=== PATIENT | male | born 1940 | race Caucasian/White ===

== ENCOUNTER → 2016-12-03 | Outpatient (CLI) | payer OTHER ==
[~2016-12-03] MED LIST: ASPEC81 PO; CHOL1TAB42 PO; CHOL200010 PO; DICL1GEL12 TOP; DXY100 PO; FLM4 PO; LPR25 PO; LPT40 PO; OXYC5TAB PO; PLV75 PO; PRD/1 PO; PRED-301 PO; VITAMIN D PO
--- NOTE | 2016-12-03 09:26 | DIAGNOSTIC IMAGING REPORT ---
TWO VIEW CHEST CLINICAL HISTORY: Bronchitis. Cough. FINDINGS: PA and lateral chest radiographs are compared to study dated 02/07/2016 and correlated with chest CT dated 02/15/2016. The heart is top normal for projection. There is atherosclerotic calcification of the thoracic aorta. The pulmonary vasculature is noncongested. Chronic interstitial thickening is similar to previous. There is no airspace consolidation or pleural effusion. There is no pneumothorax. The skeletal structures are osteopenic. Degenerative change is seen throughout the thoracic spine. IMPRESSION: No active disease in the chest. Electronically signed by: Rocael Antoine M.D. 12/03/2016 9:24 AM Dictated Date/Time: 12/03/2016 9:23 AM
== END | disposition home or self-care (01) ==
LOC: C.RADBC 09:07
PROVIDERS: ATTEND Internal Medicine Geriatric Medicine
DX: J40 Bronchitis, not specified as acute or chronic (principal)

== ENCOUNTER → 2016-12-03 | Outpatient (CLI) | payer OTHER ==
--- NOTE | 2016-12-03 11:03 | DIAGNOSTIC IMAGING REPORT ---
MRI OF THE LUMBAR SPINE WITHOUT IV CONTRAST CLINICAL HISTORY: Low back pain. Left-sided radiculopathy. COMPARISON STUDY: Radiographs of the lumbar spine dated 05/06/2016. Abdominal CT dated 02/15/2016. TECHNIQUE: MRI of the lumbar spine is performed utilizing various T1 and T2-weighted sequences in the axial and sagittal planes. IV contrast was not administered for this examination. FINDINGS: Lumbar spine: Vertebral body height is maintained at the lumbar spine. There is minimal retrolisthesis at L5-S1. Alignment is otherwise preserved. There is straightening of the lumbar lordosis. Anterior osteophytes are seen throughout. Chronic degenerative endplate change is present at L2-L3, L4-L5, and L5-S1. A hemangioma is noted in the body of T12. There are changes from previous laminectomy at L5. The remaining spinous processes appear intact. The transverse processes are normal as visualized. There are bilateral pars defects at L5. No destructive bony lesion is suspected. Intervertebral discs: There is degenerative disc desiccation loss of height seen throughout the lumbar spine. Loss of height is greatest at L4-L5 and L5-S1. Spinal cord: The imaged spinal cord is normal in morphology and signal intensity. The conus medullaris terminates at the L1-L2 interspace. The nerve roots of the cauda equina are normal in morphology. L1-L2: Unremarkable. L2-L3: There is a small posterior disc bulge. In conjunction with hypertrophy of the ligamentum flavum, this causes minimal acquired compromise of the central canal. The minimum AP diameter measures 9 mm. There is minimal subarticular stenosis. The neural foramina are patent. Facet arthropathy is of no consequence. L3-L4: Mild facet arthropathy is of no consequence. The central canal and neural foramina are patent. L4-L5: Facet arthropathy causes mild left neural foraminal stenosis. In conjunction with lateral osteophyte formation, this may impinge on the exiting left L4 nerve root. There is minimal posterior disc bulge with annular fissure. There is no significant acquired compromise of the central canal. The central canal is slightly narrowed which is likely on a congenital basis. The minimum AP diameter measures up to 11.5 mm. L5-S1: There is no acquired compromise of the central canal at this level. The central canal is slightly narrowed, likely on a congenital basis. The minimum AP canal diameter measures up to 9 mm. Facet arthropathy causes right greater than left neural foraminal stenosis. Soft tissues: There is fatty atrophy of the paraspinous musculature. Postoperative change is seen posteriorly at the L5 level. The partially imaged retroperitoneal structures are grossly unremarkable, but incompletely assessed. Sacrum: There is significant fatty marrow replacement seen in the sacrum. No marrow edema or bony abnormality is identified. IMPRESSION: 1. Multilevel lumbosacral spondylosis as detailed above. There is minimal acquired compromise of the central canal at the L2-L3 level. Mild narrowing of the distal canal is likely on a congenital basis. See discussion for detailed level by level analysis. 2. Facet arthropathy and marginal osteophyte formation may impinge on the exiting left L4 nerve root. 3. Postoperative changes are present at L5. 4. Degenerative disc disease with multilevel degenerative endplate change. No destructive bony process is identified. Dictated: 12/03/2016 10:00 AM Transcribed: 12/03/2016 11:02 AM [email or web address] Electronically signed by: Rocael Antoine M.D. 12/03/2016 11:06 AM Dictated Date/Time: 12/03/2016 10:00 AM
== END | disposition home or self-care (01) ==
LOC: C.MRIBC 09:02
PROVIDERS: ATTEND Orthopaedic Surgery Orthopaedic Surgery of the Spine
DX: M48.06 Spinal stenosis, lumbar region (principal); M47.896 Other spondylosis, lumbar region; M51.36 Other intervertebral disc degeneration, lumbar region; J40 Bronchitis, not specified as acute or chronic

== ENCOUNTER 2016-12-22 07:40 | Observation (INO) | payer OTHER ==
[2016-12-15 10:10] VITALS: BMI 28.0
--- NOTE | 2016-12-15 10:42 | PAT Medication Instructions ---
Service Date Dec 15, 2016. Current Home Medication List Prednisone (Prednisone), 7 MG PO QAM [Vitamin D], 1 TAB PO QAM Medication Instructions For Your Scheduled Surgery Prednisone (Prednisone), 7 MG PO QAM (to be completed prior to surgery) - Hold the following medications the morning of surgery: [Vitamin D], 1 TAB PO QAM If you have any questions please call us at [phone] (Halima Marques PA-C) or [phone] or [phone]
[2016-12-15 11:27] LABS: BASO % 0.2 %; BASO ABS # 0.01 K/uL (0-0.2); COMPLETE YES; EOS % 0.9 %; HEMATOCRIT 47.3 % (42-52); IG% 0.3 %; LYMPH % 14.1 %; LYMPH ABS # 0.82 K/uL (1.2-3.4); MEAN CELL VOLUME 97.3 fL (80-100); MEAN CORPUSCULAR HEMOGLOBIN 32.9 pg (25-34); MEAN CORPUSCULAR HGB CONC 33.8 g/dl (32-36); MEAN PLATELET VOLUME 10.6 fL (7.4-10.4); MONO % 3.8 %; NEUT % 80.7 %; PLATELET COUNT 118 K/uL (130-400); RED BLOOD COUNT 4.86 M/uL (4.7-6.1)
[2016-12-15 11:46] LABS: INR 1.1 (0.9-1.1); PROTHROMBIN TIME (PATIENT) 11.6 SECONDS (9.0-12.0)
[2016-12-15 11:47] LABS: BUN/CREATININE RATIO 20.8 (10-20); CALCIUM 8.4 mg/dl (8.5-10.1); CREATININE 1.4 mg/dl (0.60-1.40); POTASSIUM 4.5 mmol/L (3.5-5.1)
--- NOTE | 2016-12-19 15:39 | HISTORY & PHYSICAL EXAMINATION ---
DATE OF ADMISSION: 12/22/2016 He is being preoped for lumbar surgery, laminectomy L3-L4, L4-L5 lumbar spine. CHIEF COMPLAINT: Back and lower extremity difficulty, claudication, lower extremity difficulty, paresthesias, numbness and tingling. Duration of symptoms close to 1 year, not associated with any red flags, fevers, sweats, chills, bowel and bladder issues. He has had an assortment of conservative measures. PAST MEDICAL HISTORY: Positive rheumatoid arthritis, spine issues. No cardiac disease. No diabetes, blood disorder. No asthma, wheezing. No heart conditions. No strokes. He does have the numbness and tingling. PAST SURGICAL HISTORY: Includes hip replacement, bilateral knee, carpal tunnel, umbilical hernia, rotator cuff repair. MEDICATIONS: Prednisone, vitamin D. ALLERGIES: Unsure. SOCIAL HISTORY: No alcohol or tobacco use. REVIEW OF SYSTEMS: He denies any blurred vision, double vision, tinnitus, vertigo, chest pain, palpitations. All negative. Denies nausea, vomiting or loss of bowel or bladder function. Major complaint is back and lower extremities. OBJECTIVE: GENERAL: He is 5'7, 183 pounds. VITAL SIGNS: Blood pressure 130/80, pulse of 80. HEAD, EYES, EARS, NOSE, AND THROAT: Pupils react to light and accommodation. Ear, nose and throat clear. CARDIAC: Normal S1, S2, no S3. LUNGS: Clear to auscultation. ABDOMEN: Soft, nontender. EXTREMITIES: Intact x4. He has slight weakness, slight loss of sensation. He has no gross reflex changes. He has decreased range of motion, flexion and extension of the spine. Images demonstrate degenerative changes of the spine, stenosis particularly at L3-L4, L4-L5, disc space collapse, no blastic or lytic lesions. IMPRESSION: Stenosis lumbar spine with no instability patterns. DISPOSITION: Includes a laminectomy L3-L4, L4-L5 lumbar spine under general anesthesia [facility] 12/22/2016.
[~2016-12-22] VITALS: Ht 170.2 cm; Wt 81.9 kg
[2016-12-22] VITALS (9 sets, daily range): BP systolic 123–179; BP diastolic 64–99; PULSE 59–87; TEMP 36.4–36.7; O2SAT 92–98; Ht 170.2 cm; Wt 81.9 kg
[~2016-12-22 07:40] MED LIST changes: -ASPEC81 PO; +CEFAZOLIN 2000 MG/60 ML D5W 60 ML IV SCH; -CHOL1TAB42 PO; -CHOL200010 PO; -DICL1GEL12 TOP; -DXY100 PO; +FENTANYL CITRATE INJ 50 MCG/1 ML 2 ML VIAL ONE; -FLM4 PO; +LACTATED RINGER'S 1000ML 1,000 ML IV SCH; -LPR25 PO; -LPT40 PO; +NSS 1000ML IV SCH; -OXYC5TAB PO; -PLV75 PO; -PRED-301 PO
[2016-12-22] MEDS ORDERED: ONDANSETRON INJ 2 MG/ML 2 ML VIAL ONE (08:33)
[2016-12-22] MEDS ORDERED: NEOSTIGMINE METHYLSULFATE 5 MG/5 ML SYR ONE (08:33)
[2016-12-22] MEDS ORDERED: GLYCOPYRROLATE INJ 0.2 MG/ML VIAL ONE ×2 (08:33→11:49)
[2016-12-22] MEDS ORDERED: LIDOCAINE HCL 2% 2 ML VIAL (20MG/ML) ONE (08:33)
[2016-12-22] MEDS ORDERED: DEXAMETHASONE SOD INJ 4 MG/ML VIAL ONE (08:33)
[2016-12-22] MEDS ORDERED: MIDAZOLAM HCL 1 MG/ML 2ML VIAL ONE (08:33)
[2016-12-22] MEDS ORDERED: ROCURONIUM BROMIDE 10 MG/ML 5 ML VIAL ONE ×2 (08:33→10:40)
[2016-12-22] MEDS ORDERED: PROPOFOL IV EMULSION 10 MG/ML 20 ML VIAL IV ONE (08:33)
[2016-12-22] MEDS ORDERED: PHENYLEPHRINE 100MCG/ML 5ML SYR IV PRN (09:15)
[2016-12-22] MEDS ORDERED: MEPERIDINE HCL 25 MG/ML CARP IV PRN (09:15)
[2016-12-22] MEDS ORDERED: ONDANSETRON INJ 2 MG/ML 2 ML VIAL IV PRN ×2 (09:15→12:15)
[2016-12-22] MEDS ORDERED: EpHEDrine SULFATE INJ 50 MG/ML AMP IV PRN (09:15)
[2016-12-22] MEDS ORDERED: LABETALOL HCL IV 5 MG/ML 20ML IV PRN (09:15)
[2016-12-22] MEDS ORDERED: ATROPINE SULFATE 0.1 MG/ML 5ML SYR IV PRN (09:15)
[2016-12-22] MEDS ORDERED: MoRPHine SULFATE 10 MG/ML CARP/VIAL IV PRN (09:15)
[2016-12-22] MEDS ORDERED: FLUMAZENIL 0.1 MG/1 ML 10 ML VIAL IV PRN (09:15)
[2016-12-22] MEDS ORDERED: NALOXONE HCL 0.4 MG/1 ML VIAL/CARP IV PRN (09:15)
[2016-12-22] MEDS ORDERED: HYDROmorphone INJ 1 MG/ML SYR IV PRN ×2 (09:15→12:15)
[2016-12-22] MEDS ORDERED: GELATIN SPONGE SZ 100 ONE (09:25)
[2016-12-22] MEDS ORDERED: VANCOMYCIN HCL 1000MG/20ML VIAL ONE (09:25)
[2016-12-22] MEDS ORDERED: BACITRACIN 50000 UNIT VIAL ONE (09:25)
[2016-12-22] MEDS ORDERED: BUPIVACAINE/EPINEPHRINE 0.5% MPF 1:200,000 30 ML VIAL ONE (09:25)
[2016-12-22] MEDS ORDERED: THROMBIN FOR SOLN 20000 UNIT KIT ONE (09:25)
--- NOTE | 2016-12-22 09:31 | History & Physical Bridge Note ---
H&P Re-Evaluation Bridge Note: I have examined the patient, reviewed the History & Physical and in the interval since the performance of the History & Physical I have noted the following changes of clinical significance: No changes noted
[2016-12-22] MEDS ORDERED: EpHEDrine SULFATE 50MG/5ML SYR ONE (10:12)
[2016-12-22] MEDS ORDERED: EpHEDrine SULFATE INJ 50 MG/ML AMP ONE (10:12)
[2016-12-22] MEDS ORDERED: SODIUM CHLORIDE 0.9% INJ 10 ML VIAL ONE (10:13)
[2016-12-22] MEDS ORDERED: FENTANYL CITRATE INJ 50 MCG/1 ML 2 ML VIAL ONE (11:08)
[2016-12-22] MEDS ORDERED: DURASEAL DURAL SEALANT 5ML TOP ONE (11:57)
--- NOTE | 2016-12-22 12:00 | DIAGNOSTIC IMAGING REPORT ---
INTRAOPERATIVE RADIOGRAPH CLINICAL HISTORY: L3-L5 laminectomy. Fluoroscopy time: 4 seconds. FINDINGS: A single spot fluoroscopic image of the lower lumbar spine is presented. Surgical probes project posteriorly at the levels of L4 and L5. IMPRESSION: Intraoperative image from lumbar spinal surgery as above. See operative report for detailed findings. Electronically signed by: Rocael Antoine M.D. 12/22/2016 11:59 AM Dictated Date/Time: 12/22/2016 11:59 AM
[2016-12-22] MEDS ORDERED: BUPIVACAINE/EPINEPHRINE 0.5% MPF 1:200,000 30 ML VIAL INJ ONE (12:06)
[2016-12-22] MEDS ORDERED: VANCOMYCIN HCL 1000MG/20ML VIAL TOP ONE (12:06)
--- NOTE | 2016-12-22 12:14 | [facility] Post Operative Brief Note ---
Immediate Operative Summary Operative Date Dec 22, 2016. Pre-Operative Diagnosis Lumbar Stenosis, Spondylosis Post-Operative Diagnosis Lumbar Stenosis, Spondylosis Procedure(s) Performed L3-L4, L4-L5 Laminectomy Surgeon Dr. Kim Planning Management It Specialist Surgeon(s) RAMBO Yung Estimated Blood Loss 350 ML Findings severe stenosis Specimens none per surgeon Complication(s) None Disposition Recovery Room / PACU
[2016-12-22] MEDS ORDERED: LORAZEPAM INJ 1 MG in SYRINGE 0 ML IV PRN (12:15)
[2016-12-22] MEDS ORDERED: HYDROmorphone INJ 2 MG/ML SYR/VIAL IV PRN (12:15)
[2016-12-22] MEDS ORDERED: OXYCODONE/ACETAMINOPHEN 5-325 TAB PO PRN ×2 (12:15)
[2016-12-22] MEDS ORDERED: ACETAMINOPHEN 325 MG TAB PO PRN (12:15)
[2016-12-22] MEDS ORDERED: PROMETHAZINE HCL INJ 12.5 MG in SODIUM CHLORIDE 0.9% 50ML 50 ML IV PRN (12:15)
[2016-12-22] MEDS ORDERED: LORAZEPAM 1 MG TAB PO PRN (12:15)
[2016-12-22] MEDS ORDERED: METOCLOPRAMIDE HCL INJ 5 MG/ML 2 ML VIAL IV PRN (12:15)
[2016-12-22] MEDS ORDERED: MAGNESIUM HYDROXIDE SUSP 30 ML UDC PO PRN (12:15)
--- NOTE | 2016-12-22 12:50 | OPERATIVE REPORT ---
DATE OF OPERATION: 12/22/2016 PREOPERATIVE DIAGNOSIS: Stenosis lumbar spine, L3, L4, L5; 3-level stenosis. POSTOPERATIVE DIAGNOSIS: Same. PROCEDURES: Include a laminectomy L3, L4 and L5, foraminotomy, partial facetectomy, decompression of cauda equina. SURGEON: Dr. Kim. CRACKING AND FANNING MACHINE OPERATOR: Tino Osman PA-C. COMPLICATIONS: Zero. BLOOD LOSS: 350. COMORBIDITIES: Include, this was a second time revision surgery. Significant bone graft that was completely encasing the dura from L5 up to L3 and from an old fusion centrally located. DESCRIPTION OF PROCEDURE: The patient was taken to the operating room, a general intubated anesthetic provided to the patient, placed prone, scrubbed, prepped, draped sterile. We made a skin incision, fascial incision. We got right to a large mass of bone. We did dissect out around this. It was difficult. We then were able to get the bone relieved with a alan and Kerrisons and rongeurs and with much effort we got down to the spinal canal. It was a fairly deep wound, fairly deep dura. We stayed out of the dura. We carefully decompressed the nerve roots. We carefully protected all structures. I was very pleased with the freedom of the nerves when we were completed. We then irrigated thoroughly, washed up the wound, cleaned up everything, placed some Gelfoam over the dural structures, DuraSeal over the dural structures, vancomycin, Hemovac drain. Closed fascia to fascia with #1 Vicryl, 2-0 on the subcuticular layer, 3-0 nylon on the skin, sterile dressing applied. The patient returned to PACU stable. No apparent complications. I attest to the content of the Intraoperative Record and any orders documented therein. Any exceptio ns are noted below.
--- NOTE | 2016-12-22 12:53 | Anesthesiology Progress Note ---
Anesthesia Post Op Note Date & Time Dec 22, 2016 at 12:53 Vital Signs Pain Intensity: 2 Vital Signs Past 12 Hours Date Time Temp Pulse Resp B/P Pulse Ox O2 Delivery O2 Flow Rate FiO2 12/22/16 12:45 81 21 162/71 96 Nasal Cannula 4 12/22/16 12:35 85 20 147/66 97 Mask 10 12/22/16 12:25 91 25 183/75 99 Mask 10 12/22/16 12:17 36.6 101 14 158/103 98 Mask 10 12/22/16 08:12 36.7 59 20 164/99 96 Room Air Notes Mental Status: alert / awake / arousable, participated in evaluation Pt Amnestic to Procedure: Yes Nausea / Vomiting: adequately controlled Pain: adequately controlled Airway Patency, RR, SpO2: stable & adequate BP & HR: stable & adequate Hydration State: stable & adequate Anesthetic Complications: no major complications apparent
[2016-12-22] MEDS ORDERED: IV FLUIDS COMPLETED PRN (13:00)
[2016-12-22] MEDS: SODIUM CHLORIDE 0.9% 1000ML 1,000 ML IV SCH (14:01)
[2016-12-22] MEDS: CEFAZOLIN IV 2,000 MG in DEXTROSE 5% 50ML 50 ML IV SCH (18:07)
[2016-12-23] MEDS: SODIUM CHLORIDE 0.9% 1000ML 1,000 ML IV SCH (02:01)
[2016-12-23] MEDS: CEFAZOLIN IV 2,000 MG in DEXTROSE 5% 50ML 50 ML IV SCH ×2 (02:01→09:21)
[2016-12-23 03:17] VITALS: BP 147/63; PULSE 77; TEMP 36.7; O2SAT 93
[2016-12-23] MEDS ORDERED: BISACODYL 10 MG SUPP PR PRN (06:00)
[2016-12-23] MEDS ORDERED: BISACODYL 5 MG TABEC PO PRN (06:00)
--- NOTE | 2016-12-23 07:29 | PROGRESS NOTE ---
DATE: 12/23/2016 Improved stable, minimal complaints of pain. No chest pain, shortness of breath. Vital signs stable. Alert, oriented. Neurologically intact. Slight foot weakness. Status post lumbar spine laminectomy, multiple levels. Disposition includes instructions, precautions, education. Up and ambulatory today. Will discontinue his Trevino catheter. Tentative discharge for tomorrow morning.
[2016-12-23 07:39] VITALS: BP 115/61; PULSE 71; TEMP 36.7; O2SAT 94
[2016-12-23 08:20] LABS: HEMATOCRIT 37.3 % (42-52)
[2016-12-23] MEDS: POLYETHYLENE (MIRALAX) 17 GM PACK PO SCH (08:24)
[2016-12-23] MEDS ORDERED: NON-FORMULARY MEDICATION ([Vitamin D] 1 TAB) PO SCH (09:00)
[2016-12-23 10:25] VITALS: BP 121/71; PULSE 73; O2SAT 93
[2016-12-23 10:46] VITALS: BP 115/63; PULSE 72; TEMP 37; O2SAT 94
[2016-12-23 14:57] VITALS: BP 119/59; PULSE 82; TEMP 36.7; O2SAT 96
[2016-12-23 23:25] VITALS: BP 115/55; PULSE 73; TEMP 37; O2SAT 94
[2016-12-24 07:16] VITALS: BP 132/75; PULSE 67; TEMP 37.2; O2SAT 91
--- NOTE | 2016-12-24 07:25 | Discharge Instructions ---
Discharge Instructions Admission Reason for Admission: Lumbar Spondylosis, Stenosis Discharge Discharge Diagnosis / Problem: stenosis Discharge Goals Goal(s): Improve function Activity Recommendations Activity Limitations: as noted below Lifting Limitations: gradually increase as tolerated, until after follow-up appointment Exercise/Sports Limitations: until after follow-up appointment May Resume Sexual Activity: after follow-up appointment Shower/Bathe: keep incision dry Driving or Machine Use: home, rest, walk, recover . Current Hospital Diet Patient's current hospital diet: Regular Diet Discharge Diet Recommended Diet: Regular Diet Fluid Restriction: None Procedures Procedures Performed: L3-L4, L4-L5 Laminectomy Pending Studies Studies pending at discharge: no Medical Emergencies . Who to Call and When: Medical Emergencies: If at any time you feel your situation is an emergency, please call 911 immediately. . Non-Emergent Contact Non-Emergency issues call your: Surgeon Call Non-Emergent contact if: your pain is concerning you, you have any medication questions . "Provider Documentation" section prepared by Yovany Kim. VTE Core Measure Inpt VTE Proph given/why not?: Treatment not tolerated (may d/c teds)
--- NOTE | 2016-12-24 07:34 | DISCHARGE SUMMARY ---
He is alert, oriented here today. No chest pain, shortness of breath. 37.2, temperature, 132/75 blood pressure. Wound clean, dry. ASSESSMENT: Status post lumbar spine decompression multiple levels for stenosis, doing well in the short run. DISPOSITION: Will get him up and ambulatory today. He is discharged today. He has instructions and precautions here and in the office. He has a prescription on his chart. He has a walker at home. He must be very careful with bending, stooping, lifting.
[2016-12-24] MEDS: POLYETHYLENE (MIRALAX) 17 GM PACK PO SCH (08:42)
[2016-12-24 09:16] VITALS: BP 132/75; PULSE 67; TEMP 37.2; O2SAT 91
[2017-02-24] MEDS ORDERED: PRD/1 PO (11:29)
[2017-02-24] MEDS ORDERED: PRED-301 PO (11:29)
[2017-02-24] MEDS ORDERED: CHOL200010 PO (11:29)
[2017-02-26] MEDS ORDERED: ASPEC81 PO (12:01)
[2017-02-26] MEDS ORDERED: LPR25 PO (12:01)
[2017-02-26] MEDS ORDERED: LPT40 PO (12:01)
[2017-02-26] MEDS ORDERED: PLV75 PO (12:01)
== END 2016-12-24 10:38 | disposition home or self-care (01) ==
LOC: ENRESERVDT → ENRESERVTM → C.ACU 07:40 → C.3E 12:15
PROVIDERS: ADMIT Orthopaedic Surgery Orthopaedic Surgery of the Spine; ATTEND Orthopaedic Surgery Orthopaedic Surgery of the Spine
DX: M48.06 Spinal stenosis, lumbar region (principal); M06.9 Rheumatoid arthritis, unspecified; Z96.649 Presence of unspecified artificial hip joint; Z96.653 Presence of artificial knee joint, bilateral; Z98.890 Other specified postprocedural states

== ENCOUNTER → 2017-02-16 | Outpatient (CLI) | payer OTHER ==
[~2017-02-16] MED LIST changes: +ASPEC81 PO; -CEFAZOLIN 2000 MG/60 ML D5W 60 ML IV SCH; +CHOL1TAB42 PO; +CHOL200010 PO; +DICL1GEL12 TOP; -FENTANYL CITRATE INJ 50 MCG/1 ML 2 ML VIAL ONE; -LACTATED RINGER'S 1000ML 1,000 ML IV SCH; +LPR25 PO; +LPT40 PO; -NSS 1000ML IV SCH; +PLV75 PO; +PRED-301 PO
[2017-02-16 10:46] LABS: BASO % 0.4 %; BASO ABS # 0.02 K/uL (0-0.2); COMPLETE YES; EOS % 1.9 %; HEMATOCRIT 44.2 % (42-52); IG% 0.2 %; LYMPH % 18.8 %; MEAN CELL VOLUME 95.7 fL (80-100); MEAN CORPUSCULAR HEMOGLOBIN 31.8 pg (25-34); MEAN CORPUSCULAR HGB CONC 33.3 g/dl (32-36); MEAN PLATELET VOLUME 10.6 fL (7.4-10.4); NEUT % 72.7 %; PLATELET COUNT 145 K/uL (130-400); RED BLOOD COUNT 4.62 M/uL (4.7-6.1)
[2017-02-16 11:20] LABS: BLOOD UREA NITROGEN 17 mg/dl (7-18); BUN/CREATININE RATIO 13.2 (10-20); CALCIUM 8.6 mg/dl (8.5-10.1); CARBON DIOXIDE 30 mmol/L (21-32); CHLORIDE 108 mmol/L (98-107); GLUCOSE 96 mg/dl (70-99); POTASSIUM 3.9 mmol/L (3.5-5.1); SODIUM 144 mmol/L (136-145)
[2017-02-16 11:23] LABS: CHOLESTEROL 167 mg/dl (0-200); CHOLESTEROL/HDL RATIO 3.5; HDL CHOLESTEROL 48 mg/dl; LDL CHOLESTEROL CALCULATED 98 mg/dl; TRIGLYCERIDES 104 mg/dl (0-150); VERY LOW DENSITY LIPOPROT CALC 21 mg/dl
== END | disposition home or self-care (01) ==
LOC: C.LAB1850 09:53
PROVIDERS: ATTEND Internal Medicine Rheumatology
DX: D69.6 Thrombocytopenia, unspecified (principal); I10 Essential (primary) hypertension; E55.9 Vitamin D deficiency, unspecified; I25.10 Atherosclerotic heart disease of native coronary artery without angina pectoris; I77.6 Arteritis, unspecified; Z79.52 Long term (current) use of systemic steroids; M21.379 Foot drop, unspecified foot

== ENCOUNTER 2017-02-24 11:05 | Inpatient (IN) | payer OTHER ==
[~2017-02-24] VITALS: Ht 167.6 cm; Wt 82.8 kg
[~2017-02-24 11:05] MED LIST changes: -ASPEC81 PO; -CHOL1TAB42 PO; -CHOL200010 PO; -DICL1GEL12 TOP; -LPR25 PO; -LPT40 PO; -PLV75 PO; -PRED-301 PO
[2017-02-24] MEDS ORDERED: ASPIRIN 81 MG CHEW PO STA (11:22)
[2017-02-24] MEDS ORDERED: PANTOprazole SOD 40 MG TAB PO STA (11:22)
[2017-02-24] MEDS ORDERED: ALUMINUM/MAGNESIUM SUSP 30 ML UDC PO STA (11:22)
[2017-02-24] MEDS ORDERED: CHOL200010 PO ×2 (11:29)
[2017-02-24] MEDS ORDERED: PRED-301 PO ×2 (11:29)
[2017-02-24] MEDS ORDERED: PRD/1 PO ×2 (11:29)
[2017-02-24 11:31] LABS: BASO % 0.7 %; BASO ABS # 0.03 K/uL (0-0.2); COMPLETE YES; EOS % 1.8 %; HEMATOCRIT 43.6 % (42-52); IG% 0.2 %; LYMPH % 21.8 %; LYMPH ABS # 0.98 K/uL (1.2-3.4); MEAN CELL VOLUME 93.4 fL (80-100); MEAN CORPUSCULAR HEMOGLOBIN 31.5 pg (25-34); MEAN CORPUSCULAR HGB CONC 33.7 g/dl (32-36); MONO % 6.7 %; NEUT % 68.8 %; PLATELET COUNT 140 K/uL (130-400); RED BLOOD COUNT 4.67 M/uL (4.7-6.1); WHITE BLOOD COUNT 4.49 K/uL (4.8-10.8)
--- NOTE | 2017-02-24 11:31 | EMERGENCY ROOM VISIT NOTE ---
History Report prepared by Char: Amandeep Constantino Under the Supervision of: Dr. Chirag Armenta D.O. First contact with patient: 11:12 Chief Complaint: CARDIAC ASSESSMENT Stated Complaint: NUMBNESS IN RT HAND, JAW PAIN, INDIGESTION Nursing Triage Summary: Triage note: Pt reports for the past two weeks intermittent right neck pain and right hand numbness. pt reports intermittent indigestion. History of Present Illness The patient is a 76 year old male who presents to the Emergency Room with complaints of persistent right hand numbness that started 2 weeks ago. He also notes intermittent right neck and shoulder pain, and the numbness does radiate occasionally up his right arm and into his right shoulder. The patient states that he has intermittent "indigestion" pain in his chest that radiates up into both sides of his jaw. This pain is typically brought on by exertion, and he describes the pain as a "burning". The patient says he has never had anything like this before and he has no history of heart problems. The patient called his primary care doctor's office this morning, and was told to come here. The patient took 3 low-dose baby aspirins around 0900 this morning. He denies any back pain, headaches, shortness of breath, abdominal pain, leg swelling, or leg pain. He has been taking Prednisone everyday ever since he was diagnosed with an infectious disease last January. Source of History: patient, family Onset: 2 weeks ago Position: hand (right) Quality: numbness Timing: other (persistent) Associated Symptoms: + chest pain, + neck pain (right), No SOB, No abdominal pain, No back pain, No headache Note: Associated symptoms: Intermittent jaw pain brought on by exertion. Intermittent right arm and right shoulder numbness. Denies leg swelling or leg pain. Review of Systems See HPI for pertinent positives & negatives. A total of 10 systems reviewed and were otherwise negative. Past Medical & Surgical Medical Problems: (1) Joint pain (2) Lumbar stenosis Surgical Problems: (1) H/O rotator cuff surgery (2) H/O umbilical hernia repair (3) Hip Joint Replacement Status (4) History of back surgery (5) History of carpal tunnel surgery of left wrist (6) History of carpal tunnel surgery of right wrist (7) Knee joint replacement status Family History Diabetes mellitus Heart disease Hypertension Social History Smoking Status: Never Smoker Alcohol Use: occasionally Marital Status: Housing Status: lives with family Occupation Status: retired Current/Historical Medications Scheduled Cholecalciferol (Vitamin D), 2,000 UNIT PO DAILY Prednisone (Prednisone), 3 MG PO DAILY Prednisone (Prednisone), 5 MG PO DAILY Allergies Coded Allergies: Thiopental (Verified Adverse Reaction, Intermediate, YRS AGO- HALLUCINATIONS, 02/24/17) Physical Exam Vital Signs Date Time Temp Pulse Resp B/P Pulse Ox O2 Delivery O2 Flow Rate FiO2 02/24/17 12:55 95 Room Air 02/24/17 12:03 64 18 153/86 96 02/24/17 11:31 67 02/24/17 11:16 97 Room Air 02/24/17 11:07 37.1 66 18 173/95 94 Room Air Physical Exam GENERAL: Patient is awake, alert, and in no acute distress. Patient is resting comfortably and showing no signs of anxiety EYES: The conjunctivae are clear. The pupils are round and reactive. EARS, NOSE, MOUTH AND THROAT: The nose is without any evidence of any deformity. Mucous membranes are moist tongue is midline NECK: The neck is nontender and supple. RESPIRATORY: Normal respiratory effort is noted there is no evidence of wheezing rhonchi or rales CARDIOVASCULAR: Regular rate and rhythm noted there no murmurs rubs or gallops normal S1 normal S2 GASTROINTESTINAL: The abdomen is soft. Bowel sounds are present in all quadrants. Abdomen is nontender BACK: No midline tenderness or or step-off noted range of motion in flexion extension as well as rotation no signs of muscle spasm noted MUSCULOSKELETAL/EXTREMITIES: There is no evidence of gross deformity full range of motion is noted in the hips and shoulders SKIN: There is no obvious evidence of any rash. There are no petechiae, pallor or cyanosis noted. NEUROLOGIC: Patient is awake alert and oriented x3 strength is symmetric patellar reflexes are 2+ bilaterally. Strength symmetric in median, ulnar, and radial nerve distributions. Medical Decision & Procedures ER Provider Diagnostic Interpretation: Radiology results as stated below per my review and radiologist interpretation: HEAD CT NONCONTRAST CT DOSE: 847.48 mGycm HISTORY: Mental status change RUE numbness TECHNIQUE: Multiaxial CT images of the head were performed without the use of intravenous contrast. Comparison: None. Findings: The paranasal sinuses and mastoid air cells are clear. The calvarium and skull base are intact. The ventricles and sulci are within normal limits. There is no mass, hematoma, midline shift, or acute infarct. Impression: No acute intracranial abnormality. Electronically signed by: Bart Rich M.D. 02/24/2017 11:59 AM Dictated Date/Time: 02/24/2017 11:58 AM SINGLE VIEW CHEST CLINICAL HISTORY: Generalized abdominal pain. FINDINGS: An AP, portable, upright chest radiograph is compared to study dated 12/03/2016 and correlated with chest CT dated 02/15/2016. The examination is degraded by portable technique and patient rotation. The heart is enlarged and there is atherosclerotic calcification of the thoracic aorta. There is pulmonary vascular congestion. There is bibasilar atelectasis. No airspace consolidation is seen typical for pneumonia and there is no large pleural effusion. No pneumothorax is seen. The skeletal structures are osteopenic. Degenerative change is noted throughout the thoracic spine. A surgical anchor is present in the left humeral head. IMPRESSION: 1. Cardiomegaly with evidence of mild congestive failure. 2. No airspace consolidation or large pleural effusion is seen. Electronically signed by: Rocael Antoine M.D. 02/24/2017 11:54 AM Dictated Date/Time: 02/24/2017 11:[address] DOSE: 456.46 mGycm HISTORY: Pain. Neuropathy. RUE numbness TECHNIQUE: Multiaxial CT images of the cervical spine were performed and reformatted in the sagittal and coronal plane without the use of contrast. COMPARISON: None. FINDINGS: Diffusion-weighted stature is unremarkable. Degenerative intervertebral this change most prominent from C3 through C5. Moderate reactive sclerosis and osteophytic change. Posterior elements appear to be intact. C1-C2 complex shows moderate degenerative changes of the anterior arch. Considerable osteophytic narrowing right neural foramina C3-C4. Left neural foramina is patent. Mild osteophytic narrowing of the bulk of the neuroforamina bilaterally. No acute abnormality of posterior elements. IMPRESSION: 1. Moderate degenerative change of the entire cervical region. 2. Considerable osteophytic narrowing right neural foramina C3-C4. 3. Minimal/mild osteophytic narrowing of the bulk of the additional neural foramina bilaterally Electronically signed by: Bart Rich M.D. 02/24/2017 12:01 PM Dictated Date/Time: 02/24/2017 11:59 AM Laboratory Results 02/24/17 11:20 Red Blood Count 4.67, Mean Corpuscular Volume 93.4, Mean Corpuscular Hemoglobin 31.5, Mean Corpuscular Hemoglobin Concent 33.7, Mean Platelet Volume 10.0, Neutrophils (%) (Auto) 68.8, Lymphocytes (%) (Auto) 21.8, Monocytes (%) (Auto) 6.7, Eosinophils (%) (Auto) 1.8, Basophils (%) (Auto) 0.7, Neutrophils # (Auto) 3.09, Lymphocytes # (Auto) 0.98, Monocytes # (Auto) 0.30, Eosinophils # (Auto) 0.08, Basophils # (Auto) 0.03 02/24/17 11:20 Test 02/24/17 11:20 White Blood Count 4.49 K/uL (4.8-10.8) Red Blood Count 4.67 M/uL (4.7-6.1) Hemoglobin 14.7 g/dL (14.0-18.0) Hematocrit 43.6 % (42-52) Mean Corpuscular Volume 93.4 fL (80-100) Mean Corpuscular Hemoglobin 31.5 pg (25-34) Mean Corpuscular Hemoglobin Concent 33.7 g/dl (32-36) Platelet Count 140 K/uL (130-400) Mean Platelet Volume 10.0 fL (7.4-10.4) Neutrophils (%) (Auto) 68.8 % Lymphocytes (%) (Auto) 21.8 % Monocytes (%) (Auto) 6.7 % Eosinophils (%) (Auto) 1.8 % Basophils (%) (Auto) 0.7 % Neutrophils # (Auto) 3.09 K/uL (1.4-6.5) Lymphocytes # (Auto) 0.98 K/uL (1.2-3.4) Monocytes # (Auto) 0.30 K/uL (0.11-0.59) Eosinophils # (Auto) 0.08 K/uL (0-0.5) Basophils # (Auto) 0.03 K/uL (0-0.2) RDW Standard Deviation 44.6 fL (36.4-46.3) RDW Coefficient of Variation 13.1 % (11.5-14.5) Immature Granulocyte % (Auto) 0.2 % Immature Granulocyte # (Auto) 0.01 K/uL (0.00-0.02) Prothrombin Time 11.5 SECONDS (9.0-12.0) Prothromb Time International Ratio 1.1 (0.9-1.1) Activated Partial Thromboplast Time 27.7 SECONDS (21.0-31.0) Partial Thromboplastin Ratio 1.1 Anion Gap 6.0 mmol/L (3-11) Est Creatinine Clear Calc Drug Dose 51.1 ml/min Estimated GFR () 62.3 Estimated GFR (Non- 53.8 BUN/Creatinine Ratio 16.0 (10-20) Calcium Level 8.6 mg/dl (8.5-10.1) Total Bilirubin 0.8 mg/dl (0.2-1) Direct Bilirubin 0.2 mg/dl (0-0.2) Aspartate Amino Transf (AST/SGOT) 20 U/L (15-37) Alanine Aminotransferase (ALT/SGPT) 19 U/L (12-78) Alkaline Phosphatase 75 U/L (45-117) Total Creatine Kinase 151 U/L (39-308) Creatine Kinase MB 3.8 ng/ml (0.5-3.6) Creatine Kinase MB Ratio 2.5 (0-3.0) Troponin I 0.344 ng/ml (0-0.045) Total Protein 6.2 gm/dl (6.4-8.2) Albumin 3.4 gm/dl (3.4-5.0) Lipase 131 U/L (73-393) Laboratory results per my review. Medications Administered Medications (Trade) Dose Ordered Sig/[place] Route Start Time Stop Time Status Last Admin Dose Admin Aspirin (Aspirin Chew) 81 mg NOW STAT PO 02/24/17 11:22 02/24/17 11:24 DC 02/24/17 11:35 81 MG Al Hydroxide/Mg Hydroxide (Maalox Susp) 30 ml NOW STAT PO 02/24/17 11:22 02/24/17 11:24 DC 02/24/17 11:36 30 ML Pantoprazole Sodium (Protonix Tab) 40 mg NOW STAT PO 02/24/17 11:22 02/24/17 11:24 DC 02/24/17 11:36 40 MG ECG Indication: chest pain Rate (beats per minute): 59 Rhythm: sinus bradycardia Findings: no ectopy, other (RBBB pattern noted) Comparison ECG Date: RBBB pattern is new compared to Dec 15 2016 ED Course 1113: The patient was evaluated in room A11B. A complete history and physical examination were performed. 1122: Ordered Protonix Tab 40 mg PO, Maalox Susp 30 ml PO, Aspirin Chew 81 mg PO. 1209: Upon reevaluation, the patient is resting comfortably. I discussed results and treatment plan with him. He verbalizes agreement and understanding. The patient will be evaluated for further management and care. 1213: I discussed the patient with Dr. Mahendra hoffman. She will evaluate the patient for further treatment. Medical Decision Triage Nursing notes reviewed. Differential diagnosis: Etiologies such as cardiac ischemia, aortic dissection, pulmonary embolism, pneumonia, pneumothorax, musculoskeletal, infections, pericarditis, myocarditis , esophageal rupture, gastrointestinal, as well as others were entertained. The patient is a 76-year-old male who presented to the emergency department for an evaluation of discomfort in his chest. The patient also describes right upper extremity numbness. I do feel the patient is describing 2 different things. I feel his upper extremity numbness is secondary to cervical radiculopathy. But the discomfort is chest I feel secondary to cardiac ischemia. He has no discomfort at this time was treated with aspirin. His EKG did not show any acute ischemic changes however he did have a new right bundle branch block. This is not specifically consistent with ischemia however his initial troponin was mildly elevated. I discussed the patient's laboratory and radiographic studies with him. Given his findings I also discussed his case with the on-call [facility] hospitalist group. They've agreed to evaluate the patient in the emergency department for further management and disposition. Consults Time Called: 1209 Consulting Physician: Dr. Mahendra hoffman Returned Call: 1213 I discussed the patient with Dr. Mahendra hoffman. She will evaluate the patient for further treatment. Impression Primary Impression: Substernal chest pain Additional Impressions: Elevated troponin Abnormal EKG Cervical radiculopathy Scribe Attestation The scribe's documentation has been prepared under my direction and personally reviewed by me in its entirety. I confirm that the note above accurately reflects all work, treatment, procedures, and medical decision making performed by me. Departure Information Dispostion Being Evaluated By Hospitalist Referrals Beau Moore M.D. (PCP) Patient Instructions My [facility] Problem Qualifiers
[2017-02-24 11:39] LABS: INR 1.1 (0.9-1.1); PARTIAL THROMBOPLASTIN RATIO 1.1; PROTHROMBIN TIME (PATIENT) 11.5 SECONDS (9.0-12.0)
[2017-02-24 11:56] LABS: CALCIUM 8.6 mg/dl (8.5-10.1); CKMB/CK RATIO 2.5 (0-3.0); CREATININE 1.3 mg/dl (0.60-1.40); POTASSIUM 3.9 mmol/L (3.5-5.1)
--- NOTE | 2017-02-24 11:56 | DIAGNOSTIC IMAGING REPORT ---
SINGLE VIEW CHEST CLINICAL HISTORY: Generalized abdominal pain. FINDINGS: An AP, portable, upright chest radiograph is compared to study dated 12/03/2016 and correlated with chest CT dated 02/15/2016. The examination is degraded by portable technique and patient rotation. The heart is enlarged and there is atherosclerotic calcification of the thoracic aorta. There is pulmonary vascular congestion. There is bibasilar atelectasis. No airspace consolidation is seen typical for pneumonia and there is no large pleural effusion. No pneumothorax is seen. The skeletal structures are osteopenic. Degenerative change is noted throughout the thoracic spine. A surgical anchor is present in the left humeral head. IMPRESSION: 1. Cardiomegaly with evidence of mild congestive failure. 2. No airspace consolidation or large pleural effusion is seen. Electronically signed by: Rocael Antoine M.D. 02/24/2017 11:54 AM Dictated Date/Time: 02/24/2017 11:37 AM
--- NOTE | 2017-02-24 12:01 | DIAGNOSTIC IMAGING REPORT ---
HEAD CT NONCONTRAST CT DOSE: 847.48 mGycm HISTORY: Mental status change RUE numbness TECHNIQUE: Multiaxial CT images of the head were performed without the use of intravenous contrast. Comparison: None. Findings: The paranasal sinuses and mastoid air cells are clear. The calvarium and skull base are intact. The ventricles and sulci are within normal limits. There is no mass, hematoma, midline shift, or acute infarct. Impression: No acute intracranial abnormality. Electronically signed by: Bart Rich M.D. 02/24/2017 11:59 AM Dictated Date/Time: 02/24/2017 11:58 AM
--- NOTE | 2017-02-24 12:03 | DIAGNOSTIC IMAGING REPORT ---
CERVICAL SPINE CT CT DOSE: 456.46 mGycm HISTORY: Pain. Neuropathy. RUE numbness TECHNIQUE: Multiaxial CT images of the cervical spine were performed and reformatted in the sagittal and coronal plane without the use of contrast. COMPARISON: None. FINDINGS: Diffusion-weighted stature is unremarkable. Degenerative intervertebral this change most prominent from C3 through C5. Moderate reactive sclerosis and osteophytic change. Posterior elements appear to be intact. C1-C2 complex shows moderate degenerative changes of the anterior arch. Considerable osteophytic narrowing right neural foramina C3-C4. Left neural foramina is patent. Mild osteophytic narrowing of the bulk of the neuroforamina bilaterally. No acute abnormality of posterior elements. IMPRESSION: 1. Moderate degenerative change of the entire cervical region. 2. Considerable osteophytic narrowing right neural foramina C3-C4. 3. Minimal/mild osteophytic narrowing of the bulk of the additional neural foramina bilaterally Electronically signed by: Bart Rich M.D. 02/24/2017 12:01 PM Dictated Date/Time: 02/24/2017 11:59 AM
[2017-02-24 12:55] VITALS: O2SAT 95; Ht 167.6 cm; Wt 82.8 kg
[2017-02-24] MEDS ORDERED: OPTIRAY 320 IV PRN (13:00)
[2017-02-24] MEDS ORDERED: ALUMINUM/MAGNESIUM/SIMETH (MAALOX MAX) 30 ML UDC PO PRN (13:15)
[2017-02-24] MEDS ORDERED: ACETAMINOPHEN 325 MG TAB PO PRN (13:15)
[2017-02-24] MEDS ORDERED: ONDANSETRON INJ 2 MG/ML 2 ML VIAL IV PRN (13:15)
[2017-02-24] MEDS ORDERED: NITROGLYCERIN 0.4 MG SL PER TAB CHARGE SL PRN (13:15)
[2017-02-24] MEDS ORDERED: MAGNESIUM HYDROXIDE SUSP 30 ML UDC PO PRN (13:15)
[2017-02-24] MEDS ORDERED: POLYETHYLENE (MIRALAX) 17 GM PACK PO PRN (13:15)
--- NOTE | 2017-02-24 13:38 | History and Physical ---
History & Physical Date & Time of Service: Feb 24, 2017 at 13:13 Chief Complaint: Numbness In Rt Hand, Jaw Pain, Indigestion Primary Care Physician: Beau Moore M.D. History of Present Illness Source: patient Mr. Mejia is a 76 y/o male with PMHx of Rheumatoid Arthritis and S/P Bilateral Rotator Cuff Repair who presents to the ED complaining of numbness/ tingling of right arm and indigestion 2 weeks. Numbness and tingling of right arm has been constant but waxes and wanes. Intermittently he will experience aching shoulder pain and a pressure sensation in the right neck. He reports the symptoms seem to improve with utilization of the arm but worsens when he is resting. A couple days after the onset of this numbness and tingling he developed epigastric pain that radiates up the chest to his neck that he describes as a burning sensation. This pain is exacerbated by exertion and with bending over. Some mild improvement with rest. The other day he had one short episode of a shocklike sensation in the bilateral jaw. He is on chronic prednisone over the past year for his rheumatoid arthritis which has been slowly weaned to 8 mg daily. He follows with Dr. Huston for rheumatology. Patient took 3 baby aspirin prior to arrival. Patient does not utilize acid reducing medications. He denies chronic issues with acid reflux. In the ED, patient is mildly hypertensive and with adequate oxygenation. Troponin 0.344. EKG showing sinus bradycardia and new right bundle branch block compared to November 2016. CXR with cardiomegaly and mild congestive failure. Cervical spine CT shows moderate degenerative changes with narrowing of the right normal foramina of C3 through C4. Patient will be admitted to telemetry for monitoring and further evaluation and care. Past Medical/Surgical History Medical Problems: (1) Joint pain (2) Lumbar stenosis Surgical Problems: (1) H/O rotator cuff surgery (2) H/O umbilical hernia repair (3) Hip Joint Replacement Status (4) History of back surgery (5) History of carpal tunnel surgery of left wrist (6) History of carpal tunnel surgery of right wrist (7) Knee joint replacement status Family History Diabetes mellitus Heart disease Hypertension Social History Smoking Status: Never Smoker Marital Status: Housing status: lives with family Occupational Status: retired Immunizations History of Tetanus Vaccine?: 2002 History of Pneumococcal: Unknown History of Hepatitis B Vaccine: No Multi-Drug Resistant Organisms History of MDRO: No Allergies Coded Allergies: Thiopental (Verified Adverse Reaction, Intermediate, YRS AGO- HALLUCINATIONS, 02/24/17) Home Medications Scheduled Cholecalciferol (Vitamin D), 2,000 UNIT PO DAILY Prednisone (Prednisone), 3 MG PO DAILY Prednisone (Prednisone), 5 MG PO DAILY Review of Systems REVIEW OF SYSTEMS: General/Constitutional: Denies fever/chills, fatigue, weakness, weight gain/loss ENT: Denies visual changes, nasal drainage, hearing loss, sore throat, trouble swallowing Cardiovascular: +EPIGASTRIC PAIN WITH RADIATION IN CHEST; Denies palpitations, edema Respiratory: Denies cough, sputum, SOB, wheezing, orthopnea GI: + EPIGASTRIC PAIN; Denies nausea, vomiting, constipation, diarrhea, melena/ hematochezia : Denies dysuria, frequency, hematuria Musculoskeletal: +R SHOULDER/NECK PAIN, + R ARM NUMBNESS/TINGLING; Denies weakness or decreased function of R arm, swelling Neurologic: Denies dizziness/lightheadedness Psychiatric: Deferred Endocrine: Deferred Hematologic/Lymphatic: Denies bleeding/clotting abnormalities Skin: Denies rash, itch, new skin changes, easy bruising Allergy/Immunologic: Deferred Physical Exam Vital Signs Date Time Temp Pulse Resp B/P Pulse Ox O2 Delivery O2 Flow Rate FiO2 02/24/17 12:03 64 18 153/86 96 02/24/17 11:31 67 02/24/17 11:16 97 Room Air 02/24/17 11:07 37.1 66 18 173/95 94 Room Air PHYSICAL EXAM:: General Appearance: WDWN in NAD who is A&O x 3 HEENT: Head is normocephalic/atraumatic; EOMI; PERRLA; Hearing grossly intact; Mucous membranes moist; Pharynx negative for exudate/lesions Neck: Supple; Trachea midline; Neg JVD; Neg lymphadenopathy Heart: RRR with no M/G/R Lungs: CTA in all lung schmitz bilaterally; Respirations unlabored; Neg accessory muscle use Abdomen: Soft, non-tender, non-distended; Positive BS x 4 quadrants; Neg organomegaly Extremities: Capillary refill < 2 seconds; Neg cyanosis or edema Neurological: Speech clear; 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, flexion/extension of elbow, and shoulder shrug; strength 3/5 for dorsiflexion of L foot (chronic); Neg focal neurologic deficits Psychiatric: Appropriate mood/affect Skin: Normal Color; Warm/Dry; Neg rashes, ecchymosis, lacerations/ulcerations Diagnostics Laboratory Results Results Past 24 Hours Test 02/24/17 11:20 Range/Units White Blood Count 4.49 4.8-10.8 K/uL Red Blood Count 4.67 4.7-6.1 M/uL Hemoglobin 14.7 14.0-18.0 g/dL Hematocrit 43.6 42-52 % Mean Corpuscular Volume 93.4 80-100 fL Mean Corpuscular Hemoglobin 31.5 25-34 pg Mean Corpuscular Hemoglobin Concent 33.7 32-36 g/dl Platelet Count 140 130-400 K/uL Mean Platelet Volume 10.0 7.4-10.4 fL Neutrophils (%) (Auto) 68.8 % Lymphocytes (%) (Auto) 21.8 % Monocytes (%) (Auto) 6.7 % Eosinophils (%) (Auto) 1.8 % Basophils (%) (Auto) 0.7 % Neutrophils # (Auto) 3.09 1.4-6.5 K/uL Lymphocytes # (Auto) 0.98 1.2-3.4 K/uL Monocytes # (Auto) 0.30 0.11-0.59 K/uL Eosinophils # (Auto) 0.08 0-0.5 K/uL Basophils # (Auto) 0.03 0-0.2 K/uL RDW Standard Deviation 44.6 36.4-46.3 fL RDW Coefficient of Variation 13.1 11.5-14.5 % Immature Granulocyte % (Auto) 0.2 % Immature Granulocyte # (Auto) 0.01 0.00-0.02 K/uL Prothrombin Time 11.5 9.0-12.0 SECONDS Prothromb Time International Ratio 1.1 0.9-1.1 Activated Partial Thromboplast Time 27.7 21.0-31.0 SECONDS Partial Thromboplastin Ratio 1.1 Sodium Level 144 136-145 mmol/L Potassium Level 3.9 3.5-5.1 mmol/L Chloride Level 109 98-107 mmol/L Carbon Dioxide Level 29 21-32 mmol/L Anion Gap 6.0 3-11 mmol/L Blood Urea Nitrogen 21 7-18 mg/dl Creatinine 1.30 0.60-1.40 mg/dl Est Creatinine Clear Calc Drug Dose 51.1 ml/min Estimated GFR () 62.3 Estimated GFR (Non- 53.8 BUN/Creatinine Ratio 16.0 10-20 Random Glucose 102 70-99 mg/dl Calcium Level 8.6 8.5-10.1 mg/dl Total Bilirubin 0.8 0.2-1 mg/dl Direct Bilirubin 0.2 0-0.2 mg/dl Aspartate Amino Transf (AST/SGOT) 20 15-37 U/L Alanine Aminotransferase (ALT/SGPT) 19 12-78 U/L Alkaline Phosphatase 75 45-117 U/L Total Creatine Kinase 151 39-308 U/L Creatine Kinase MB 3.8 0.5-3.6 ng/ml Creatine Kinase MB Ratio 2.5 0-3.0 Troponin I 0.344 0-0.045 ng/ml Total Protein 6.2 6.4-8.2 gm/dl Albumin 3.4 3.4-5.0 gm/dl Lipase 131 73-393 U/L Diagnostic Radiology 1. CERVICAL SPINE CT CT DOSE: 456.46 mGycm HISTORY: Pain. Neuropathy. RUE numbness TECHNIQUE: Multiaxial CT images of the cervical spine were performed and reformatted in the sagittal and coronal plane without the use of contrast. COMPARISON: None. FINDINGS: Diffusion-weighted stature is unremarkable. Degenerative intervertebral this change most prominent from C3 through C5. Moderate reactive sclerosis and osteophytic change. Posterior elements appear to be intact. C1-C2 complex shows moderate degenerative changes of the anterior arch. Considerable osteophytic narrowing right neural foramina C3-C4. Left neural foramina is patent. Mild osteophytic narrowing of the bulk of the neuroforamina bilaterally. No acute abnormality of posterior elements. IMPRESSION: 1. Moderate degenerative change of the entire cervical region. 2. Considerable osteophytic narrowing right neural foramina C3-C4. 3. Minimal/mild osteophytic narrowing of the bulk of the additional neural foramina bilaterally 2. SINGLE VIEW CHEST CLINICAL HISTORY: Generalized abdominal pain. FINDINGS: An AP, portable, upright chest radiograph is compared to study dated 12/03/2016 and correlated with chest CT dated 02/15/2016. The examination is degraded by portable technique and patient rotation. The heart is enlarged and there is atherosclerotic calcification of the thoracic aorta. There is pulmonary vascular congestion. There is bibasilar atelectasis. No airspace consolidation is seen typical for pneumonia and there is no large pleural effusion. No pneumothorax is seen. The skeletal structures are osteopenic. Degenerative change is noted throughout the thoracic spine. A surgical anchor is present in the left humeral head. IMPRESSION: 1. Cardiomegaly with evidence of mild congestive failure. 2. No airspace consolidation or large pleural effusion is seen. EKG Sinus bradycardia Right bundle branch block Abnormal ECG When compared with ECG of 15-DEC-2016 10:52, Right bundle branch block is now Present Impression Assessment and Plan Mr. Mejia is a 76 y/o male with PMHx of Rheumatoid Arthritis and S/P Bilateral Rotator Cuff Repair who presents to the ED complaining of numbness/ tingling of right arm and indigestion 2 weeks. Elevated Troponin: ACS vs PE? - CT R/O PE - given new RBBB, cardiomegaly with mild congestion? R heart strain? - Serial cardiac enzymes - initial troponin 0.344 -- Pending next reading - will initiate anticoagulation - Echocardiogram - ASA 81 mg daily - Start Lisinopril 10 mg daily - be mindful of Cr with contrast given -- BB contraindicated as patient currently bradycardic - Atorvastatin 40 mg daily - may need high dose pending evaluation - Consult cardiology - appreciate recommendations Epigastric Pain: ACS vs Gastritis (Chronic Prednisone) - Protonix 40 mg daily R Arm Radiculopathy 2/2 RA: - Cervical CT - report reviewed - narrowing of right neural foramina at C3 through C4; moderate degenerative changes - Hold prednisone 8 mg daily - at this time - re-evaluate in AM for reinstitution - Would recommend outpatient referral in regards to this - F/U MRI DVT Prophylaxis: Code Status: FULL RESUSCITATION Disposition: From home ATTENDING ATTESTATION I have seen and examined patient and agree with the assessment and plan as stated above by BRAVO Rivas. 76 y/o male with PMHx of Rheumatoid Arthritis who presented to the ED with burning sub sternal chest pain for 2 weeks. Patient also has non associated right arm numbness/tingling which radiates to his nec k. Vitals- reviewed GEN- NAD CVS- RRR RESP- CTA ABD- + BS, NTND EXT- no c/c/e Labs- reviewed 76 y/o male with PMHx of Rheumatoid Arthritis who presented to the ED with burning sub sternal chest pain for 2 weeks found to have an elevated troponin NSTEMI- telemetry, trend troponin and CKMB/start ASA, Lisinopril, atorvastatin 40 mg /check lipid/consult cardiology/check echocardiograph HTN-start lisinopril Rheumatoid Arthritis - continue prednisone Cervical Spine DJD- Tylenol PPx- lovenox Full Code Level of Care Telemetry Resuscitation Status FULL RESUSCITATION VTE Prophylaxis VTE Risk Assessment Done? Y/N: Yes Risk Level: Moderate Given or contraindicated: T.E.D. Stockings, SCD's Social Service Consult None Apply
--- NOTE | 2017-02-24 13:43 | DIAGNOSTIC IMAGING REPORT ---
CT ANGIOGRAPHY OF THE CHEST, PULMONARY EMBOLUS PROTOCOL CLINICAL HISTORY: New right bundle-branch block. Cardiomegaly. Elevated troponin. COMPARISON STUDY: Chest CT February 15, 2016 and chest radiograph February 24, 2017. TECHNIQUE: Following IV administration of 97 mL of Optiray-320, helical axial images of the chest were obtained utilizing the pulmonary embolus protocol. Maximal intensity projections and sagittal and coronal reformats were viewed on an independent 3D workstation. IV contrast was administered without complication. CT DOSE: 404.63 mGy.cm FINDINGS: No pulmonary emboli are identified. There is no evidence of thoracic aortic dissection. The heart is moderately enlarged. There is no pericardial effusion. There is moderate coronary artery calcification. Central airways are patent. There is no consolidation to suggest pneumonia. Groundglass opacities favor atelectasis. There is no pneumothorax or pleural effusion. Bony thorax and upper abdomen are unremarkable. IMPRESSION: 1. No pulmonary emboli identified. 2. No acute intrathoracic findings. 3. Moderate cardiomegaly and moderate coronary artery calcification. Electronically signed by: Garfield Gómez M.D. 02/24/2017 1:40 PM Dictated Date/Time: 02/24/2017 1:34 PM
[2017-02-24] MEDS ORDERED: HydrALAZINE HCL 20 MG/ML VIAL IV. PRN (14:15)
[2017-02-24 15:03] VITALS: BP 189/86; PULSE 56; TEMP 36.6; O2SAT 97
[2017-02-24 16:00] VITALS: O2SAT 97
--- NOTE | 2017-02-24 17:27 | ECHOCARDIOGRAM REPORT ---
*NOTICE TO RECEIVING CONSTITUTION PARTY AGENCY This information is strictly Confidential and protected under [place] law. [place] law prohibits you from making any further disclosure of this information unless further disclosure is expressly permitted by the written consent of the person to whom it pertains or is authorized by law. A general authorization for the release of medical or other information is not sufficient for this purpose. Hospital accepts no responsibility if the information is made available to any other person, INCLUDING THE PATIENT. Interpretation Summary * Name: OH BRYANT Study Date: 02/24/2017 04:16 PM BP: 189/86 mmHg * Patient Location: .2T\S\S233\S\1 HR: 56 * : 1940 (M/d/yyy) Gender: Male Height: 66 in * Age: 76 yrs Ethnicity: CA Weight: 188 lb * Ordering Physician: Laxmi Rivas * Referring Physician: Beau Moore * Performed By: Vanessa Raman RDCS * * Reason For Study: Cardiomegaly, elevated troponin * BSA: 1.9 m2 * -- Conclusions -- * 1. Normal LV size. Mild concentric LVH. * 2. Normal LV systolic function. LVEF 65-70%. No regional wall motion abnormalities. * 3. Normal RV size and function. * 4. Grade I diastolic dysfuntion. * 5. Severely dilated left atrium * 6. Mild aortic valve sclerosis without stenosis. * 7. Normal estimated RA and PA pressures. * 8. Comparerd with prior study on 04/18/2011: No significant changes. Procedure Details * A complete two-dimensional transthoracic echocardiogram was performed (2D, M-mode, Doppler and color flow Doppler). Left Ventricle * The left ventricle is grossly normal size. * There is mild concentric left ventricular hypertrophy. * Ejection Fraction = 65-70%. * No regional wall motion abnormalities noted. Right Ventricle * The right ventricle is grossly normal size. * The right ventricular systolic function is normal as assessed by tricuspid annular plane systolic excursion (TAPSE) (normal >1.5 cm). Atria * The left atrium is severely dilated. * Right atrial size is normal. * No ASD detected; PFO is not assessed. Mitral Valve * Valve chordae thickened * The mitral valve leaflets appear thickened, but open well. * There is no mitral valve stenosis. * Significant mitral regurgitation is absent. Tricuspid Valve * There is trace tricuspid regurgitation. * Right ventricular systolic pressure is normal. Aortic Valve * Aortic valve sclerosis mild, without significant aortic valvular stenosis. * The aortic valve is tricuspid. The leaflet thickness if normal. There is no aortic stenosis, and no significant insufficiency. * There is discrete nodular thickening of the left coronary cusp. * No hemodynamically significant valvular aortic stenosis. * There is no significant aortic regurgitation. Pulmonic Valve * The pulmonary valve is inadequately visualized, but the Doppler data is adequate for interpretation. * Trace pulmonic valvular regurgitation. Great Vessels * The aortic root and proximal ascending aorta are normal sized. * No Doppler or imaging evidence of an aortic coarctation. Pericardium/Pleural * There is no pericardial effusion. Great Vessels * Normal inferior vena cava size and collapsability with sniff indicates a normal right atrial pressure of 3 mmHg * There is no evidence of pulmonary hypertension. The PA systolic pressure is less than 36 mmHg. Left Ventricular Diastolic Function * Grade I diastolic dysfunction, (abnormal relaxation pattern). MMode 2D Measurements and Calculations IVSd 1.1 cm LVIDd 4.4 cm LVIDs 2.7 cm LVPWd 1.4 cm IVS/LVPW 0.81 FS 38.3 % EDV(Teich) 90.0 ml ESV(Teich) 28.1 ml EF(Teich) 68.7 % EDV(cubed) 88.1 ml ESV(cubed) 20.7 ml EF(cubed) 76.5 % LV mass(C)d 211.5 grams LV mass(C)dI 108.6 grams/m\S\2 CO(Teich) 3.3 l/min CI(Teich) 1.7 l/min/m\S\2 SV(Teich) 61.9 ml SI(Teich) 31.8 ml/m\S\2 CO(cubed) 3.6 l/min CI(cubed) 1.8 l/min/m\S\2 SV(cubed) 67.4 ml SI(cubed) 34.6 ml/m\S\2 Ao root diam 3.3 cm Ao root area 8.6 cm\S\2 ACS 1.7 cm LA dimension 3.6 cm asc Aorta Diam 3.5 cm LA/Ao 1.1 LVAd ap4 30.5 cm\S\2 LVLd ap4 8.5 cm EDV(MOD-sp4) 90.1 ml LVAs ap4 14.6 cm\S\2 LVLs ap4 7.0 cm ESV(MOD-sp4) 25.6 ml EF(MOD-sp4) 71.6 % LVAd ap2 27.4 cm\S\2 LVLd ap2 8.1 cm EDV(MOD-sp2) 77.2 ml LVAs ap2 13.3 cm\S\2 LVLs ap2 6.7 cm ESV(MOD-sp2) 23.8 ml EF(MOD-sp2) 69.2 % CO(MOD-sp4) 3.4 l/min CI(MOD-sp4) 1.8 l/min/m\S\2 SV(MOD-sp4) 64.5 ml SI(MOD-sp4) 33.1 ml/m\S\2 CO(MOD-sp2) 2.8 l/min CI(MOD-sp2) 1.5 l/min/m\S\2 SV(MOD-sp2) 53.4 ml SI(MOD-sp2) 27.4 ml/m\S\2 Doppler Measurements and Calculations MV E max nikos 59.7 cm/sec MV A max nikos 91.7 cm/sec MV E/A 0.65 MV dec time 0.32 sec Ao V2 max 127.2 cm/sec Ao max PG 6.5 mmHg Ao max PG (full) 2.7 mmHg LV V1 max PG 3.7 mmHg LV V1 max 96.5 cm/sec PA V2 max 81.7 cm/sec PA max PG 2.7 mmHg PA acc slope 527.4 cm/sec\S\2 PA acc time 0.12 sec PI max nikos 110.3 cm/sec PI max PG 4.9 mmHg PI dec slope 102.8 cm/sec\S\2 PI P1/2t 314.3 msec TR max nikos 251.9 cm/sec PA pr(Accel) 23.5 mmHg
[2017-02-24 18:18] LABS: CKMB/CK RATIO 2.8 (0-3.0)
[2017-02-24 19:19] VITALS: BP 139/81; PULSE 54; TEMP 36.4; O2SAT 94
[2017-02-24] MEDS ORDERED: ENOXAPARIN 1 MG/KG SQ SCH (19:30)
[2017-02-24 20:15] VITALS: O2SAT 94
[2017-02-24 20:54] LABS: URINE APPEARANCE CLEAR (CLEAR); URINE BILIRUBIN NEG (NEG); URINE COLOR YELLOW; URINE NITRITE NEG (NEG); URINE PH 5.5 (4.5-7.5); URINE SPECIFIC GRAVITY > 1.045 (1.000-1.030); UROBILINOGEN NEG (NEG)
[2017-02-24 20:58] LABS: MANUAL MICROSCOPIC REQUIRED? NO; REVIEW REQ? NO
[2017-02-24] MEDS ORDERED: ENOXAPARIN 100 MG/1ML SYR SQ SCH (21:00)
[2017-02-24 23:32] VITALS: BP 133/68; PULSE 59; TEMP 36.6; O2SAT 93
[2017-02-24 23:52] LABS: CKMB/CK RATIO 3.2 (0-3.0)
[2017-02-25] VITALS (14 sets, daily range): BP systolic 128–173; BP diastolic 63–84; PULSE 56–88; TEMP 36.4–36.7; O2SAT 92–97
[2017-02-25 06:13] LABS: HEMATOCRIT 42.7 % (42-52); MEAN CELL VOLUME 93.2 fL (80-100); MEAN CORPUSCULAR HEMOGLOBIN 31.9 pg (25-34); MEAN CORPUSCULAR HGB CONC 34.2 g/dl (32-36); MEAN PLATELET VOLUME 9.9 fL (7.4-10.4); PLATELET COUNT 132 K/uL (130-400); RED BLOOD COUNT 4.58 M/uL (4.7-6.1); WHITE BLOOD COUNT 4.32 K/uL (4.8-10.8)
[2017-02-25 06:30] LABS: CREATININE 1.4 mg/dl (0.60-1.40); MAGNESIUM 2.2 mg/dl (1.8-2.4); POTASSIUM 3.6 mmol/L (3.5-5.1)
[2017-02-25 06:34] LABS: INR 1.1 (0.9-1.1); PARTIAL THROMBOPLASTIN RATIO 1.3; PROTHROMBIN TIME (PATIENT) 11.7 SECONDS (9.0-12.0)
[2017-02-25] MEDS: ATORVASTATIN 40 MG TAB PO SCH (07:54)
[2017-02-25] MEDS: LISINOPRIL 10 MG TAB PO SCH (07:55)
[2017-02-25] MEDS: PANTOprazole SOD 40 MG TAB PO SCH (07:55)
[2017-02-25] MEDS: ASPIRIN 81 MG ECTAB PO SCH (07:55)
[2017-02-25] MEDS ORDERED: ENOXAPARIN 40 MG/0.4 ML SYR SQ SCH (09:00)
[2017-02-25] MEDS ORDERED: HEPARIN 25,000 UNIT/500ML D5W 500 ML IV PRN (09:00)
--- NOTE | 2017-02-25 11:15 | Cardiology Consultation ---
Cardiology Consultation Date of Consultation: Feb 25, 2017. Requesting Physician: Dr. Mccray Reason for Consultation: Elevated troponin Pt evaluation today including: conversation w/ patient, conversation w/ family , physical exam, chart review, lab review, review of studies, review of inpatient medication list History of Present Illness Mr. Mejia is a 76-year-old man with a history of inflammatory arthritis, vasculitis on chronic steroids, hypertension who was admitted in the setting of right arm/neck numbness and pain as well as epigastric/substernal chest discomfort. Was in his usual state of health until approximately 2 weeks ago. Symptoms initially began with right upper extremity numbness and gradually progressed to involve his neck. Epigastric/substernal pain began several days after and he thought it was indigestion. No prior history of indigestion. Symptoms can occur at anytime and not significantly worsened with exertion. Denies any significant associated shortness of breath, palpitations, presyncope. Present to the ED yesterday where was initially hypertensive but hemodynamically stable. Initial EKG showed sinus rhythm with new right bundle branch block but no dynamic ST changes. Initial troponin was positive at 0.3 and has subsequently trended up to 0.5. Since admission patient has been largely chest pain free. Telemetry reviewed and no significant arrhythmias. Patient with no other significant past cardiac history. States he did undergo it is a cardiac catheterization in the 1980s in the setting of atypical chest pain. This was done in [place] and per patient report was completely normal. Past Medical/Surgical History 1. Vasculitis 2. Inflammatory arthritis 3. Spinal stenosis with lumbar radiculopathy 4. Chronic steroid use 5. Osteoarthritis Family History Diabetes mellitus Heart disease Hypertension No history of premature coronary artery disease or sudden cardiac Social History Smoking Status: Never Smoker History of Alcohol Use: Yes ([facility]) Lives with his . 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 Quit smoking cigarettes decades ago. Still uses occasional snuff. Denies any significant alcohol use. Review of Systems Constitutional: No chills, No fever Respiratory: No cough, No shortness of breath Cardiac: + chest pain, No edema, No orthopnea, No palpitations Abdomen: + pain, No nausea, No vomiting Neurologic: No memory loss Heme: No abnormal bleeding/bruising Endo: No fatigue Skin: No rash All Other Systems: Reviewed and Negative Allergies Coded Allergies: Thiopental (Verified Adverse Reaction, Intermediate, YRS AGO- HALLUCINATIONS, 02/24/17) Medications Current Inpatient Medications Medications (Trade) Dose Ordered Sig/Suyapa Route Start Time Stop Time Status Last Admin Dose Admin Ioversol (Optiray 320) 115 ml UD PRN IV 02/24/17 13:00 02/28/17 12:59 Acetaminophen (Tylenol Tab) 650 mg Q4H PRN PO 02/24/17 13:15 03/26/17 13:14 Al Hydrox/Mg Hydrox/Simethicone (Maalox Max Susp) 15 ml Q4H PRN PO 02/24/17 13:15 03/26/17 13:14 Magnesium Hydroxide (Milk Of Magnesia Susp) 30 ml Q12H PRN PO 02/24/17 13:15 03/26/17 13:14 Ondansetron HCl (Zofran Inj) 4 mg Q6H PRN IV 02/24/17 13:15 03/26/17 13:14 Nitroglycerin (Nitrostat Tab) 0.4 mg UD PRN SL 02/24/17 13:15 03/26/17 13:14 Aspirin (Ecotrin Tab) 81 mg QAM PO 02/25/17 09:00 03/27/17 08:59 02/25/17 07:55 81 MG Polyethylene (Miralax Powder Packet) 17 gm DAILY PRN PO 02/24/17 13:15 03/26/17 13:14 Pantoprazole Sodium (Protonix Tab) 40 mg QAM PO 02/25/17 09:00 03/27/17 08:59 02/25/17 07:55 40 MG Atorvastatin Calcium (Lipitor Tab) 40 mg DAILY PO 02/25/17 09:00 03/27/17 08:59 02/25/17 07:54 40 MG Prednisone (PredniSONE TAB) 5 mg DAILY PO 02/25/17 09:00 03/27/17 08:59 02/25/17 07:55 5 MG Prednisone (PredniSONE TAB) 3 mg DAILY PO 02/25/17 09:00 03/27/17 08:59 02/25/17 07:56 3 MG Lisinopril (Zestril Tab) 10 mg QAM PO 02/25/17 09:00 03/27/17 08:59 02/25/17 07:55 10 MG Hydralazine HCl 10 mg 10 mg Q6 PRN IV. 02/24/17 14:15 03/26/17 14:14 Heparin Sodium/ Dextrose (Heparin 25,000 Unit/500ml D5W) 500 ml @ 26 mls/hr [id number] PRN IV 02/25/17 09:00 03/27/17 08:59 Physical Exam Vital Signs Past 12 Hours Date Time Temp Pulse Resp B/P Pulse Ox O2 Delivery O2 Flow Rate FiO2 02/25/17 08:00 97 Room Air 02/25/17 07:38 36.4 61 18 173/84 97 Room Air 02/25/17 04:10 Room Air 02/25/17 03:28 36.5 60 18 146/75 96 Room Air 02/25/17 00:15 Room Air 02/24/17 23:32 36.6 59 17 133/68 93 Room Air ENMT: normal ENT inspection Neck: supple, pertinent finding (No JVD. No bruits) Lungs: Respiratory effort: no dyspnea Auscultation: breath sounds normal, no wheezing, no rales/crackles, no rhonchi Cardiovascular: Heart Auscultation: RRR, no murmurs Peripheral Pulses: Radial Pulse: normal on the left, normal on the right Dorsalis Pedis Pulse: normal on the left, normal on the right Musculoskeletal: normal Extremities: no edema, no ulcers Neurologic: Cranial Nerves: grossly intact Sensation: grossly intact Data Laboratory Results: Last 24 Hours Test 02/24/17 11:20 02/24/17 17:35 02/24/17 20:20 02/24/17 23:20 White Blood Count 4.49 K/uL Red Blood Count 4.67 M/uL Hemoglobin 14.7 g/dL Hematocrit 43.6 % Mean Corpuscular Volume 93.4 fL Mean Corpuscular Hemoglobin 31.5 pg Mean Corpuscular Hemoglobin Concent 33.7 g/dl Platelet Count 140 K/uL Mean Platelet Volume 10.0 fL Neutrophils (%) (Auto) 68.8 % Lymphocytes (%) (Auto) 21.8 % Monocytes (%) (Auto) 6.7 % Eosinophils (%) (Auto) 1.8 % Basophils (%) (Auto) 0.7 % Neutrophils # (Auto) 3.09 K/uL Lymphocytes # (Auto) 0.98 K/uL Monocytes # (Auto) 0.30 K/uL Eosinophils # (Auto) 0.08 K/uL Basophils # (Auto) 0.03 K/uL RDW Standard Deviation 44.6 fL RDW Coefficient of Variation 13.1 % Immature Granulocyte % (Auto) 0.2 % Immature Granulocyte # (Auto) 0.01 K/uL Prothrombin Time 11.5 SECONDS Prothromb Time International Ratio 1.1 Activated Partial Thromboplast Time 27.7 SECONDS Partial Thromboplastin Ratio 1.1 Sodium Level 144 mmol/L Potassium Level 3.9 mmol/L Chloride Level 109 mmol/L Carbon Dioxide Level 29 mmol/L Anion Gap 6.0 mmol/L Blood Urea Nitrogen 21 mg/dl Creatinine 1.30 mg/dl Est Creatinine Clear Calc Drug Dose 51.1 ml/min Estimated GFR () 62.3 Estimated GFR (Non- 53.8 BUN/Creatinine Ratio 16.0 Random Glucose 102 mg/dl Calcium Level 8.6 mg/dl Total Bilirubin 0.8 mg/dl Direct Bilirubin 0.2 mg/dl Aspartate Amino Transf (AST/SGOT) 20 U/L Alanine Aminotransferase (ALT/SGPT) 19 U/L Alkaline Phosphatase 75 U/L Total Creatine Kinase 151 U/L 131 U/L 106 U/L Creatine Kinase MB 3.8 ng/ml 3.7 ng/ml 3.4 ng/ml Creatine Kinase MB Ratio 2.5 2.8 3.2 Troponin I 0.344 ng/ml 0.504 ng/ml 0.537 ng/ml Total Protein 6.2 gm/dl Albumin 3.4 gm/dl Lipase 131 U/L Urine Color YELLOW Urine Appearance CLEAR Urine pH 5.5 Urine Specific [place] > 1.045 Urine Protein NEG Urine Glucose (UA) NEG Urine Ketones NEG Urine Occult Blood NEG Urine Nitrite NEG Urine Bilirubin NEG Urine Urobilinogen NEG Urine Leukocyte Esterase NEG Test 02/25/17 05:50 White Blood Count 4.32 K/uL Red Blood Count 4.58 M/uL Hemoglobin 14.6 g/dL Hematocrit 42.7 % Mean Corpuscular Volume 93.2 fL Mean Corpuscular Hemoglobin 31.9 pg Mean Corpuscular Hemoglobin Concent 34.2 g/dl RDW Standard Deviation 44.8 fL RDW Coefficient of Variation 13.1 % Platelet Count 132 K/uL Mean Platelet Volume 9.9 fL Prothrombin Time 11.7 SECONDS Prothromb Time International Ratio 1.1 Activated Partial Thromboplast Time 33.7 SECONDS Partial Thromboplastin Ratio 1.3 Sodium Level 143 mmol/L Potassium Level 3.6 mmol/L Chloride Level 107 mmol/L Carbon Dioxide Level 28 mmol/L Anion Gap 8.0 mmol/L Blood Urea Nitrogen 21 mg/dl Creatinine 1.40 mg/dl Est Creatinine Clear Calc Drug Dose 46.7 ml/min Estimated GFR () 57.0 Estimated GFR (Non- 49.1 BUN/Creatinine Ratio 15.0 Random Glucose 80 mg/dl Calcium Level 8.2 mg/dl Magnesium Level 2.2 mg/dl Triglycerides Level 128 mg/dl Cholesterol Level 170 mg/dl HDL Cholesterol 43 mg/dl LDL Cholesterol, Calculated 101 mg/dl VLDL Cholesterol, Calculated 26 mg/dl Cholesterol/HDL Ratio 4.0 Imaging: CT neck- moderate degenerative change involving entire cervical region. Consider role narrowing of the right neural foramina and C3-C4 cardiac CTA of chest-no pulmonary emboli. No acute intrathoracic findings. Moderate cardiomegaly, moderate coronary artery calcification. EKG: Sinus rhythm, new right bundle-branch block. Telemetry reviewed: Sinus rhythm, no complex arrhythmias. Echo shows preserved LV function, LVH, no significant valvular pathology. Assessment & Plan 1. Elevated troponin/suspected ACS 2. Hypertension 3. Vasculitis 4. Mild renal insufficiency Patient here with atypical symptoms over the last 2 weeks found to have a mildly elevated troponin and a right bundle-branch block on EKG. At present patient is chest pain free and hemodynamically and electrically stable. Going forward feel the patient requires further risk stratification and in the setting of elevated troponin, risk factors, coronary calcifications on CT scan would plan to proceed directly to cardiac catheterization. Discussed this with the patient and his including risks, benefits, alternatives to procedure and patient would like to proceed. Will plan to do procedure via right radial artery later this afternoon. After contrast load yesterday and with mild renal insufficiency will plan to pre -hydrate with normal saline prior to procedure Otherwise in the interim continue aspirin, statin, last dose of Lovenox was last night and will hold off on initiating heparin at present. Thank you for allowing us to participate in care of this patient. Please contact with any questions.
--- NOTE | 2017-02-25 11:16 | Procedure Note ---
Pre-Mod Sedation Assessment General Date of Moderate Sedation: Feb 25, 2017. Vital Signs: Vital Signs Past 12 Hours Date Time Temp Pulse Resp B/P Pulse Ox O2 Delivery O2 Flow Rate FiO2 02/25/17 11:04 36.6 56 18 135/74 92 Room Air 02/25/17 08:00 97 Room Air 02/25/17 07:38 36.4 61 18 173/84 97 Room Air 02/25/17 04:10 Room Air 02/25/17 03:28 36.5 60 18 146/75 96 Room Air 02/25/17 00:15 Room Air 02/24/17 23:32 36.6 59 17 133/68 93 Room Air Review Cardiovascular: regular rate, rhythm, no edema Abdomen: normal bowel sounds, non tender, soft Lungs: chest non-tender, lungs clear Pre-Sedation Airway Assessment Oral Cavity: Capped Teeth, WNL Able to Visualize Vocal Cords: No Short Thick Neck: No Hx of Sleep Apnea: No Smoking Status: Never Smoker Mallampati Classification: Class III ASA Classification: Class III Procedure Planning Contraindications-for Mod Sed: None Yes Notes The planned sedation has been discussed with the patient and consent obtained. I have identified the patient, determined the appropriateness of sedation and have assessed the patient immediately prior to the procedure. All medicine(s) and interventions are by my order.
[2017-02-25] MEDS ORDERED: HEPARIN SOD (PORCINE) 1000 UNIT/ML 10 ML VIAL ONE ×2 (13:34→15:18)
[2017-02-25] MEDS ORDERED: NiCARDipine HCL INJ 2.5 MG/ML 10 ML AMP ONE (13:34)
[2017-02-25] MEDS ORDERED: MIDAZOLAM HCL 1 MG/ML 2ML VIAL ONE ×5 (13:35→15:18)
[2017-02-25] MEDS ORDERED: FENTANYL CITRATE INJ 50 MCG/1 ML 2 ML VIAL ONE ×5 (13:35→15:18)
[2017-02-25] MEDS ORDERED: NITROGLYCERIN/D5W 100MCG/ML 20ML SYR ONE (13:58)
--- NOTE | 2017-02-25 14:44 | Hospitalist Progress Note ---
Hospitalist Progress Note Date of Service Feb 25, 2017. Subjective Pt evaluation today including: conversation w/ patient Patient denies any chest pain or SOB Constitutional: No fever Eyes: No worsening of vision ENT: No hearing loss Respiratory: No cough Cardiovascular: No chest pain Male : No dysuria Neurologic: No memory loss Psychiatric: No depression symptoms Skin: No new/changing skin lesions, No rash Objective Vital Signs Date Time Temp Pulse Resp B/P Pulse Ox O2 Delivery O2 Flow Rate FiO2 02/25/17 12:00 97 Room Air 02/25/17 11:04 36.6 56 18 135/74 92 Room Air 02/25/17 08:00 97 Room Air 02/25/17 07:38 36.4 61 18 173/84 97 Room Air 02/25/17 04:10 Room Air 02/25/17 03:28 36.5 60 18 146/75 96 Room Air 02/25/17 00:15 Room Air 02/24/17 23:32 36.6 59 17 133/68 93 Room Air 02/24/17 20:15 94 Room Air 02/24/17 19:19 36.4 54 17 139/81 94 Room Air 02/24/17 16:00 97 Room Air 02/24/17 15:03 36.6 56 18 189/86 97 Room Air Physical Exam General Appearance: WD/WN, no apparent distress Eyes: normal inspection ENT: normal ENT inspection Neck: supple Respiratory/Chest: chest non-tender, normal breath sounds Cardiovascular: regular rate, rhythm, no edema Abdomen: normal bowel sounds, non tender, soft Extremities: normal range of motion, non-tender Laboratory Results Last 24 Hours Test 02/24/17 17:35 02/24/17 20:20 02/24/17 23:20 02/25/17 05:50 Total Creatine Kinase 131 U/L 106 U/L Creatine Kinase MB 3.7 ng/ml 3.4 ng/ml Creatine Kinase MB Ratio 2.8 3.2 Troponin I 0.504 ng/ml 0.537 ng/ml Urine Color YELLOW Urine Appearance CLEAR Urine pH 5.5 Urine Specific [place] > 1.045 Urine Protein NEG Urine Glucose (UA) NEG Urine Ketones NEG Urine Occult Blood NEG Urine Nitrite NEG Urine Bilirubin NEG Urine Urobilinogen NEG Urine Leukocyte Esterase NEG White Blood Count 4.32 K/uL Red Blood Count 4.58 M/uL Hemoglobin 14.6 g/dL Hematocrit 42.7 % Mean Corpuscular Volume 93.2 fL Mean Corpuscular Hemoglobin 31.9 pg Mean Corpuscular Hemoglobin Concent 34.2 g/dl RDW Standard Deviation 44.8 fL RDW Coefficient of Variation 13.1 % Platelet Count 132 K/uL Mean Platelet Volume 9.9 fL Prothrombin Time 11.7 SECONDS Prothromb Time International Ratio 1.1 Activated Partial Thromboplast Time 33.7 SECONDS Partial Thromboplastin Ratio 1.3 Sodium Level 143 mmol/L Potassium Level 3.6 mmol/L Chloride Level 107 mmol/L Carbon Dioxide Level 28 mmol/L Anion Gap 8.0 mmol/L Blood Urea Nitrogen 21 mg/dl Creatinine 1.40 mg/dl Est Creatinine Clear Calc Drug Dose 46.7 ml/min Estimated GFR () 57.0 Estimated GFR (Non- 49.1 BUN/Creatinine Ratio 15.0 Random Glucose 80 mg/dl Calcium Level 8.2 mg/dl Magnesium Level 2.2 mg/dl Triglycerides Level 128 mg/dl Cholesterol Level 170 mg/dl HDL Cholesterol 43 mg/dl LDL Cholesterol, Calculated 101 mg/dl VLDL Cholesterol, Calculated 26 mg/dl Cholesterol/HDL Ratio 4.0 Assessment and Plan Mr. Mejia is a 76 y/o male with PMHx of Rheumatoid Arthritis and S/P Bilateral Rotator Cuff Repair who presents to the ED complaining of numbness/ tingling of right arm and indigestion 2 weeks. NSTEMI - appreciate cardiology input - echo cardiograph reviewed - continue ASA, statin and lisinopril - continue heparin drip - hold BB 2/2 to bradycardia - patient to have LHC today by cardiology HTN -continue lisinopril Rheumatoid Arthritis - continue prednisone Cervical Spine DJD - Tylenol PPx- lovenox Full Code
[2017-02-25 15:19] LABS: CALCIUM 8.7 mg/dl (8.5-10.1)
[2017-02-25] MEDS ORDERED: CLOPIDOGREL BISULFATE 300 MG TAB PO ONE (15:45)
--- NOTE | 2017-02-25 16:24 | Procedure Note ---
Post-Mod Sedation Assessment General Date of Moderate Sedation Feb 25, 2017. Vital Signs: Vital Signs Past 12 Hours Date Time Temp Pulse Resp B/P Pulse Ox O2 Delivery O2 Flow Rate FiO2 02/25/17 15:53 36.7 76 18 139/63 95 02/25/17 15:50 60 16 148/89 95 Room Air 02/25/17 15:40 60 16 140/80 95 Room Air 02/25/17 12:00 97 Room Air 02/25/17 11:04 36.6 56 18 135/74 92 Room Air 02/25/17 08:00 97 Room Air 02/25/17 07:38 36.4 61 18 173/84 97 Room Air Review - Discharge Criteria Vital Signs Stable: Yes Alert/Oriented/Conversant: Yes Returned to Baseline Mental St: Yes Nausea Absent/Minimal: Yes Pain/Discomfort/Absent/Minimal: Yes Normal/Baseline Respirations: Yes Active Bleeding?: No Pt Received D/C Instructions: N/A Prescriptions Given: None Specific Proced. D/C Criteria Distal Pulses Present (Cardiac: Yes Groin site assessed-Card Cath: Yes Voided Prior To Discharge: N/A Discharged Patients Adult Escort/Transportation: Yes
[2017-02-25] MEDS ORDERED: SODIUM CHLORIDE 0.9% 1000ML 1,000 ML IV SCH (16:30)
[2017-02-25] MEDS ORDERED: ONDANSETRON INJ 2 MG/ML 2 ML VIAL IV PRN (16:30)
--- NOTE | 2017-02-25 16:57 | Cardiac Catheterization ---
Procedure Note Procedure Date Feb 25, 2017. Pre-Procedure Diagnosis Non STEMI AUC Score 8 Post-Procedure Diagnosis Severe CAD, Successful PCI, Normal Intracardiac Pressures Procedure(s) Performed Coronary Angiography, Left Heart Cath, Drug Eluting Stent, Ultrasound Guided Vascular Access, Radial Artery Angiography Surveillance Camera Technician Dr. Sarkar Insurance Verification Rep(s) Minesh Estimated Blood Loss 30 Medication(s) Clopidogrel, Fentanyl, Heparin, Nicardipine, Nitroglycerin, Versed, Lidocaine 1% Summary of Findings Indication: High-risk NSTEMI Access: Radial artery accessed multiple times but unable to pass wire into more proximal vessel. Right ulnar access obtained via ultrasound guidance. 6Fr sheath Catheters: ZENIA Fraire 1 Findings: LM - Luminal irregularities LAD - Moderate caliber vessel. Mid LAD with 50-60% stenosis prior to take-off of 2nd diagonal. 2nd diagonal small vessel, early bifurcating, with 70-80% ostial stenosis. Circumflex - Non-dominant, luminal irregularities. Very small OM1 diffusely diseased. Moderate caliber OM2 is terminal branch with only luminal irregularities RCA - Dominant, 30-40% proximal, 50-60% early mid stenosis, 40% distal RCA stenosis and 99% stenosis (acute appearing) right at bifurcation of PDA and PAV. Distal PDA with 90% stenosis. LVEDP - 16 -- PCI -- Antithrombotic therapy: Heparin, Clopidogrel Procedure: RCA cannulated with AR1 Guide Computer Repairer 50 wire passed across lesion into distal PDA Distal RCA into PDA lesion predilated with 2.0 compliant balloon BMW wire across lesion into distal PLB 2.0 compliant balloon used to dilate lesion into PAV Dilated lesion stented with 2.25 x 22 Resolute TRA into PDA Stent post-dilated with 2.5 noncompliant balloon IC vasodilators administered for spasm Post stent placement mid RCA lesion appeared more significant and concern for possible proximal dissection. Decision made to stent from proximal RCA in to mid segment. 3.5 x 34 Resolute stent placed across lesions. Stent post-dilated with 4.0 NC balloon. Post procedure AIDA 3 flow, stent well expanded with minimal residual stenosis and no apparent cardiac complications. Arterial Closure: TR Band Summary: 1. Multivessel coronary artery disease - 60% mid RCA stenosis, 99% distal RCA at bifurcation of PDA/PAV (likely culprit lesion) - Intermediate 50-60% mid LAD, 80% ostial small 2nd diagonal. 2. Normal intracardiac filling pressure 3. Successful PCI of proximal to mid RCA (3.5 x 34 Resolute) and distal RCA into PDA (2.25 x 22 Resolute) with 2 total drug-eluting stents. Recommendations: Return to PCU for continued monitoring Loaded with Clopidogrel 600 mg Continue dual-antiplatelet therapy with ASA/Clopidogrel for 1 year Continue CONSUELO, add beta-mi at HR allows High-dose statin Consult cardiac Rehab Further evaluation of intermediate LAD lesion with outpatient stress test. Hemodynamics Rest Ao: 186/84/130 Final Ao: 122/66/90 LV: 177/16 Recommendations PCI without planned CABG Specimens None Radiation Exposure (mGy) 6114 (patient counseled on signs and symptoms of radiation injury) Contrast (mls) 275 Fluids (cc crystalloids) 224 Drains none Anesthesia moderate Procedural Complication(s) None Disposition PCU ACC Data Cardiac Status Clinical evaluation leading to the procedure CAD Presntation: Non STEMI Anginal Classification: CCS IV Heart Failure: No, NYHA Class: CCS I Cardiogenic Shock w/in 24Hrs: No Cardiac Arrest w/in 24Hrs: No Imaging studies past 6 months: Yes Stress studies past 6 months: No Standard Exercise Stress Test: No Stress Echocardiogram: No Stress Testing w/SPECT MPI: No Cardiac CTA: No Coronary Anatomy Dominant: Right Left Main (% Stenosis): Normal LAD (% Stenosis): Mid (60%) D2 (% Stenosis): Ostial (80%) Circumflex (% Stenosis): Normal RCA (% Stenosis): Proximal (40), Mid (50-60), Distal (99) R PDA (% Stenosis): Mid (90) Diagnostic Physician's Name: Delmer Sarkar MD Status: Elective Closure Device Percutaneous Entry Location: Radial Closure Device: Radial Band Recommendations: PCI without planned CABG PCI Indication: PCI for high risk Non-STEMI Lesion Segment Name: Distal RCA Culprit Artery: Yes Stenosis Prior to Rx (%): 99 Chronic Total Occlusion: No IVUS: No FFR: No Pre-Procedure AIDA Flow: 3 Previously Treated Lesion: No Lesion Complexity: High/C Lesion Length (mm): 15 Thrombus Present: No Bifurcation Lesion: Yes Guidewire Across Lesion: Yes Guidewire: Stenosis Post-Procedure (%): 0 Post-Procedure AIDA Flow: 3 Device(s) Deployed: Yes Intraprocedure Events Significant Dissection: No Perforation: No
[2017-02-26] VITALS: BP 145/83; PULSE 64; TEMP 36.6; O2SAT 94
[2017-02-26 04:00] VITALS: BP 138/76; PULSE 66; TEMP 36.7; O2SAT 97
[2017-02-26 05:55] LABS: BASO % 0.4 %; BASO ABS # 0.02 K/uL (0-0.2); COMPLETE YES; HEMATOCRIT 40.1 % (42-52); IG% 0.4 %; LYMPH % 17.3 %; LYMPH ABS # 0.86 K/uL (1.2-3.4); MEAN CELL VOLUME 94.8 fL (80-100); MEAN CORPUSCULAR HEMOGLOBIN 31.4 pg (25-34); MEAN CORPUSCULAR HGB CONC 33.2 g/dl (32-36); MEAN PLATELET VOLUME 10.4 fL (7.4-10.4); MONO % 8.5 %; NEUT % 70.4 %; PLATELET COUNT 118 K/uL (130-400); RED BLOOD COUNT 4.23 M/uL (4.7-6.1); WHITE BLOOD COUNT 4.96 K/uL (4.8-10.8)
[2017-02-26 06:33] LABS: BUN/CREATININE RATIO 13.9 (10-20); CALCIUM 7.9 mg/dl (8.5-10.1); CREATININE 1.3 mg/dl (0.60-1.40); MAGNESIUM 2.2 mg/dl (1.8-2.4); POTASSIUM 3.7 mmol/L (3.5-5.1)
[2017-02-26 08:00] VITALS: BP 124/69; PULSE 70; TEMP 36.9; O2SAT 97
--- NOTE | 2017-02-26 08:55 | Cardiology Follow-Up ---
Subjective Subjective Date of Service: Feb 26, 2017. Pt evaluation today including: conversation w/ patient, conversation w/ family , physical exam, chart review, lab review, review of studies, review of inpatient medication list Additional Details: No chest pain, indigestion overnight. Mild tenderness at right arm access sites. No other new complaints. Tele reviewed -- sinus down to high 50s overnight Problem List Medical Problems: (1) Abnormal EKG Status: Acute (2) Cervical radiculopathy Status: Acute (3) Elevated troponin Status: Acute (4) Fever Status: Acute (5) Joint swelling Status: Acute (6) Pneumonia Status: Acute (7) Substernal chest pain Status: Acute Review of Systems Constitutional: No fever Eyes: No worsening of vision ENT: No hearing loss Respiratory: No cough Cardiac: No chest pain Abdomen: No nausea, No pain, No vomiting Musculoskeletal: + joint pain, + muscle pain Male : No dysuria Neurologic: No memory loss Psychiatric: No depression symptoms Heme: No abnormal bleeding/bruising Endo: No fatigue Skin: No new/changing skin lesions, No rash Objective Vital Signs Last Vital Signs Documentation Date Time Temp Pulse Resp B/P Pulse Ox O2 Delivery O2 Flow Rate FiO2 02/26/17 08:00 97 Room Air 02/26/17 04:00 36.7 66 18 138/76 Physical Exam: General Appearance: no apparent distress ENT: normal ENT inspection Neck: supple Respiratory/Chest: chest non-tender, normal breath sounds Cardiovascular: regular rate, rhythm, no edema, + systolic murmur (2/6 JANINE) Abdomen: normal bowel sounds, non tender, soft Extremities: normal range of motion, non-tender, + pertinent finding ( tenderness, ecchymosis at radial/ulnar access sites. palpable distal radial/ ulnar pulses. intact sensation, cap refill. ) Neurologic/Psychiatric: alert, normal mood/affect, oriented x 3 Skin: normal color, warm/dry, no rash Lymphatic: no adenopathy Assessment and Plan 1. NSTEMI/Distal RCA disease -- post procedure day 1 s/p TRA x2 to RCA; chest pain free, ECG changes resolved this AM 2. Intermediate LAD disease -- further outpatient assessment 3. Hypertension -- reasonably controlled on CONSUELO; add low dose beta-mi 4. Vasculitis -- on chronic steroids 5. Mild renal insufficiency -- stable post IV hydration. Stable post procedure overnight. Some access site bruising but no apparent significant complications. From a cardiac standpoint OK for discharge today. On discharge -- -- Continue DAPT with ASA/Clopidogrel for 1 year -- Continue CONSUELO; started on low dose metoprolol 12.5 BID -- Continue high-dose statin -- F/u with cardiology in 2-3 weeks. Will discuss cardiac rehab and further assessment LAD disease. Medications: Current Inpatient Medications Medications (Trade) Dose Ordered Sig/Suyapa Route Start Time Stop Time Status Last Admin Dose Admin Ioversol (Optiray 320) 115 ml UD PRN IV 02/24/17 13:00 02/28/17 12:59 Acetaminophen (Tylenol Tab) 650 mg Q4H PRN PO 02/24/17 13:15 03/26/17 13:14 Al Hydrox/Mg Hydrox/Simethicone (Maalox Max Susp) 15 ml Q4H PRN PO 02/24/17 13:15 03/26/17 13:14 Magnesium Hydroxide (Milk Of Magnesia Susp) 30 ml Q12H PRN PO 02/24/17 13:15 03/26/17 13:14 Ondansetron HCl (Zofran Inj) 4 mg Q6H PRN IV 02/24/17 13:15 03/26/17 13:14 Nitroglycerin (Nitrostat Tab) 0.4 mg UD PRN SL 02/24/17 13:15 03/26/17 13:14 Aspirin (Ecotrin Tab) 81 mg QAM PO 02/25/17 09:00 03/27/17 08:59 02/25/17 07:55 81 MG Polyethylene (Miralax Powder Packet) 17 gm DAILY PRN PO 02/24/17 13:15 03/26/17 13:14 Pantoprazole Sodium (Protonix Tab) 40 mg QAM PO 02/25/17 09:00 03/27/17 08:59 02/25/17 07:55 40 MG Atorvastatin Calcium (Lipitor Tab) 40 mg DAILY PO 02/25/17 09:00 03/27/17 08:59 02/25/17 07:54 40 MG Prednisone (PredniSONE TAB) 5 mg DAILY PO 02/25/17 09:00 03/27/17 08:59 02/25/17 07:55 5 MG Prednisone (PredniSONE TAB) 3 mg DAILY PO 02/25/17 09:00 03/27/17 08:59 02/25/17 07:56 3 MG Lisinopril (Zestril Tab) 10 mg QAM PO 02/25/17 09:00 03/27/17 08:59 02/25/17 07:55 10 MG Hydralazine HCl 10 mg 10 mg Q6 PRN IV. 02/24/17 14:15 03/26/17 14:14 Heparin Sodium/ Dextrose (Heparin 25,000 Unit/500ml D5W) 500 ml @ 26 mls/hr [id number] PRN IV 02/25/17 09:00 03/27/17 08:59 Clopidogrel Bisulfate (plAVix TAB) 75 mg QAM PO 02/26/17 09:00 03/28/17 08:59 Metoprolol Tartrate (Lopressor Tab) 12.5 mg BID PO 02/26/17 09:00 03/28/17 08:59 Lab Results: 02/26/17 05:30 Red Blood Count 4.23, Mean Corpuscular Volume 94.8, Mean Corpuscular Hemoglobin 31.4, Mean Corpuscular Hemoglobin Concent 33.2, Mean Platelet Volume 10.4, Neutrophils (%) (Auto) 70.4, Lymphocytes (%) (Auto) 17.3, Monocytes (%) (Auto) 8.5, Eosinophils (%) (Auto) 3.0, Basophils (%) (Auto) 0.4, Neutrophils # (Auto) 3.49, Lymphocytes # (Auto) 0.86, Monocytes # (Auto) 0.42, Eosinophils # (Auto) 0.15, Basophils # (Auto) 0.02 02/26/17 05:30 Test 02/25/17 14:31 02/26/17 05:30 Kaolin Activated Coagulation Time 265 SECONDS (94-140) White Blood Count 4.96 K/uL (4.8-10.8) Red Blood Count 4.23 M/uL (4.7-6.1) Hemoglobin 13.3 g/dL (14.0-18.0) Hematocrit 40.1 % (42-52) Mean Corpuscular Volume 94.8 fL (80-100) Mean Corpuscular Hemoglobin 31.4 pg (25-34) Mean Corpuscular Hemoglobin Concent 33.2 g/dl (32-36) Platelet Count 118 K/uL (130-400) Mean Platelet Volume 10.4 fL (7.4-10.4) Neutrophils (%) (Auto) 70.4 % Lymphocytes (%) (Auto) 17.3 % Monocytes (%) (Auto) 8.5 % Eosinophils (%) (Auto) 3.0 % Basophils (%) (Auto) 0.4 % Neutrophils # (Auto) 3.49 K/uL (1.4-6.5) Lymphocytes # (Auto) 0.86 K/uL (1.2-3.4) Monocytes # (Auto) 0.42 K/uL (0.11-0.59) Eosinophils # (Auto) 0.15 K/uL (0-0.5) Basophils # (Auto) 0.02 K/uL (0-0.2) RDW Standard Deviation 45.5 fL (36.4-46.3) RDW Coefficient of Variation 13.1 % (11.5-14.5) Immature Granulocyte % (Auto) 0.4 % Immature Granulocyte # (Auto) 0.02 K/uL (0.00-0.02) Activated Partial Thromboplast Time 27.2 SECONDS (21.0-31.0) Partial Thromboplastin Ratio 1.0 Anion Gap 7.0 mmol/L (3-11) Est Creatinine Clear Calc Drug Dose 50.3 ml/min Estimated GFR () 62.3 Estimated GFR (Non- 53.8 BUN/Creatinine Ratio 13.9 (10-20) Calcium Level 7.9 mg/dl (8.5-10.1) Magnesium Level 2.2 mg/dl (1.8-2.4)
[2017-02-26] MEDS ORDERED: METOPROLOL TARTRATE 25 MG TAB PO SCH (09:00)
[2017-02-26] MEDS ORDERED: CLOPIDOGREL BISULFATE 75 MG TAB PO SCH (09:00)
[2017-02-26] MEDS: ASPIRIN 81 MG ECTAB PO SCH (09:45)
[2017-02-26] MEDS: ATORVASTATIN 40 MG TAB PO SCH (09:45)
[2017-02-26] MEDS: PANTOprazole SOD 40 MG TAB PO SCH (09:48)
[2017-02-26] MEDS: LISINOPRIL 10 MG TAB PO SCH (09:48)
[2017-02-26 11:26] VITALS: BP 162/62; PULSE 58; TEMP 36.5; O2SAT 97
[2017-02-26 12:00] VITALS: O2SAT 97
[2017-02-26] MEDS ORDERED: PLV75 PO ×2 (12:01)
[2017-02-26] MEDS ORDERED: ASPEC81 PO ×2 (12:01)
[2017-02-26] MEDS ORDERED: LPT40 PO ×2 (12:01)
[2017-02-26] MEDS ORDERED: LPR25 PO ×2 (12:01)
--- NOTE | 2017-02-26 12:04 | Discharge Instructions ---
Discharge Instructions Admission Admission Date: Feb 24, 2017 at 13:13 Admission Diagnosis: Elevated Troponin. Discharge Care Plan - Problem: Medical Problems: (1) Abnormal EKG (2) Cervical radiculopathy (3) Elevated troponin (4) Substernal chest pain Care Plan - Goal(s): Decrease discomfort, Improve function Care Plan - Instructions: Activity Recommendations: no limitations Recommended Home Diet: AHA Phase I (2gmNa/LoCho) * Call 911 or immediately go to the Hospital Emergency Department nearest your location if you feel you have an emergent problem. Provider Instructions: Please follow up with the blueprint machine operator in 2-3 weeks. You will be called and notified of the date and time. Please follow up with you PCP in 1 week Inpt [facility] Proph given/why not?: Abbie Chance, SCD's Laboratory Results Test Results: Lipid Panel Test 02/25/17 05:50 Range/Units Triglycerides Level 128 0-150 mg/dl Cholesterol Level 170 0-200 mg/dl HDL Cholesterol 43 mg/dl Cholesterol/HDL Ratio 4.0 LDL Cholesterol, Calculated 101 mg/dl Becky Zamora Recommendations: Call your doctor if: * Temperature above 101 degrees * Pain not relieved by pain medicine ordered * There is increased drainage or redness from any incision * You have any unanswered questions or concerns. Your Doctors Instructions noted above were prepared by provider Laxmi Mccray.
[2017-02-26 12:13] VITALS: BP 162/62; PULSE 58; TEMP 36.5; O2SAT 97
--- NOTE | 2017-02-26 17:09 | Discharge Summary ---
Discharge Summary Date of Service Feb 26, 2017. Discharge Summary Admission Date: Feb 24, 2017 at 13:13 Discharge Date: Feb 26, 2017 Discharge Disposition: Home Principal Diagnosis: NSTEMI/CAD Problems/Secondary Diagnoses: Rheumatoid Arthritis Immunizations: History of Tetanus Vaccine?: 2002 History of Pneumococcal: Unknown History of Hepatitis B Vaccine: No Procedures: 02.26.17 Left Heart Catheterization Consultations: Cardiology Medication Reconciliation New Medications: Aspirin (Aspirin EC Low Dose) 81 Mg Ectab 81 MG PO QAM for 30 Days Atorvastatin (Atorvastatin Calcium) 40 Mg Tab 40 MG PO DAILY for 30 Days, #30 TAB Clopidogrel Bisulfate (Clopidogrel) 75 Mg Tab 75 MG PO QAM for 30 Days, #30 TAB Metoprolol Tartrate (Lopressor) 25 Mg Tab 12.5 MG PO BID for 30 Days, #60 TAB Continued Medications: Cholecalciferol (Vitamin D) 2,000 Unit Cap 2000 UNIT PO DAILY Prednisone (Prednisone) 1 Mg Tab 3 MG PO DAILY, TAB TAKES WITH 5MG TO =8MG Prednisone (Prednisone) 5 Mg Tab 5 MG PO DAILY, TAB TAKES WITH 3 1MG TO =8MG Discharge Exam Review of Systems: Constitutional: No chills Eyes: No worsening of vision ENT: No hearing loss Respiratory: No cough, No dyspnea on exertion, No shortness of breath Cardiovascular: No chest pain Abdomen: No diarrhea, No pain, No vomiting Musculoskeletal: No joint pain Genitourinary - Male: No dysuria, No hematuria Neurologic: No memory loss Endocrine: No fatigue Integumentary: No itch, No rash Physical Exam: General Appearance: WD/WN, no apparent distress Eyes: normal inspection ENT: normal ENT inspection, pharynx normal Neck: supple, no adenopathy Respiratory/Chest: chest non-tender, lungs clear Cardiovascular: regular rate, rhythm, no edema Abdomen / GI: normal bowel sounds, non tender, soft Extremities: normal inspection, no calf tenderness Neurologic/Psychiatric: surfacer operator II-XII nml as tested, no motor/sensory deficits , alert, oriented x 3 Skin: normal color, warm/dry Lymphatic: no adenopathy Hospital Course Mr. Mejia is a 76 y/o male with PMHx of Rheumatoid Arthritis and S/P Bilateral Rotator Cuff Repair who presents to the ED complaining of numbness/ tingling of right arm and indigestion 2 weeks. Patient found to have an elevate troponin and admitted to the hospitalist service for NSTEMI. Cardiology was consulted. Patient was started on an aspirin, atorvastatin and lovenox. On 02.25.17, Patient had left heart catheterization in which he received to TRA to the RCA. Patient was started on plavix. After monitoring post catheterization for 24 hours patient was found to be stable discharge. Patient started on metoprolol although HR was noticed to be 70. It was arranged for patient to have follow up with cariology in 2-3 weeks. Total Time Spent: Greater than 30 minutes This includes examination of the patient, discharge planning, medication reconciliation, and communication with other providers. Discharge Instructions Please refer to the electronic Patient Visit Report (Discharge Instructions) for additional information.
== END 2017-02-26 12:51 | disposition home or self-care (01) | DRG 247 ==
LOC: ENRESERVDT → ENRESERVTM → C.EDB 11:06 → C.2T 13:13
PROVIDERS: ADMIT Internal Medicine; ATTEND Internal Medicine
PROC: B210YZZ Fluoroscopy of Single Coronary Artery using Other Contrast (ICD-10-PCS; principal; 2017-02-25 13:15)
PROC: 4A023N7 Measurement of Cardiac Sampling and Pressure, Left Heart, Percutaneous Approach (ICD-10-PCS; principal; 2017-02-25 13:15)
PROC: B31HZZZ Fluoroscopy of Right Upper Extremity Arteries (ICD-10-PCS; principal; 2017-02-25 13:15)
PROC: 027035Z Dilation of Coronary Artery, One Artery with Two Drug-eluting Intraluminal Devices, Percutaneous Approach (ICD-10-PCS; principal; 2017-02-25 13:15)
DX: I21.4 Non-ST elevation (NSTEMI) myocardial infarction (principal); I25.10 Atherosclerotic heart disease of native coronary artery without angina pectoris; I10 Essential (primary) hypertension; M05.20 Rheumatoid vasculitis with rheumatoid arthritis of unspecified site; N28.9 Disorder of kidney and ureter, unspecified; M50.11 Cervical disc disorder with radiculopathy, high cervical region; I45.10 Unspecified right bundle-branch block; I51.7 Cardiomegaly; Z72.0 Tobacco use; Z98.890 Other specified postprocedural states; Z79.52 Long term (current) use of systemic steroids; Z82.49 Family history of ischemic heart disease and other diseases of the circulatory system; Z83.3 Family history of diabetes mellitus

== ENCOUNTER → 2017-02-27 | Outpatient (CLI) | payer OTHER ==
[~2017-02-27] MED LIST changes: +ASPEC81 PO; +CHOL1TAB42 PO; +CHOL200010 PO; +DICL1GEL12 TOP; +LPR25 PO; +LPT40 PO; +PLV75 PO; +PRED-301 PO
[2017-02-27 13:17] LABS: BLOOD UREA NITROGEN 18 mg/dl (7-18); BUN/CREATININE RATIO 13.1 (10-20); CALCIUM 8.3 mg/dl (8.5-10.1); CARBON DIOXIDE 27 mmol/L (21-32); CHLORIDE 110 mmol/L (98-107); GLUCOSE 107 mg/dl (70-99); POTASSIUM 3.8 mmol/L (3.5-5.1); SODIUM 144 mmol/L (136-145)
== END | disposition home or self-care (01) ==
LOC: C.LABPBG 08:17
PROVIDERS: ATTEND Internal Medicine Interventional Cardiology
DX: N28.9 Disorder of kidney and ureter, unspecified (principal)

== ENCOUNTER → 2017-03-27 | Outpatient (CLI) | payer OTHER ==
[~2017-03-27] MED LIST changes: -LPR25 PO; -PRED-301 PO; -VITAMIN D PO
--- NOTE | 2017-04-02 23:30 | MYOCARDIAL PERFUSION SCAN ---
STUDY TITLE: ONE-DAY NUCLEAR MEDICINE TECHNETIUM-99M CARDIOLITE MYOCARDIAL PERFUSION SCAN PRIMARY CARE PHYSICIAN: Beau Moore MD. REQUESTING PHYSICIAN: Delmer Sarkar MD. INDICATION: Recent PCI, residual coronary artery disease, atypical symptoms. EKG: Resting EKG shows sinus bradycardia with right bundle-branch block. Stress EKG: The patient exercised for 7 minutes and 19 seconds achieving 10.1 METS. Resting heart rate anel from 58 to 126, which was 86% maximum predicted heart rate. Blood pressure anel from 126/78 to 210/80. There were occasional PVCs, no other complex arrhythmias. There were no significant ST changes. Rotating raw images were reviewed in detail. There was mild diaphragmatic attenuation, mild gut uptake near the inferior imaging border of the heart, but no significant extracardiac pathologic uptake. TECHNIQUE: For the stress portion of the study, 33.0 mCi of technetium-99m Cardiolite IV was injected at 11:30 a.m. on 03/27/2017. Fifteen minutes following the injection, imaging of the heart was performed in multiple projections. For the rest portion of the study, 11.0 mCi of technetium-99m Cardiolite was injected IV at 9:20 a.m. One hour following the injection, imaging of the heart was performed in the same projections. FINDINGS: Short axis, horizontal long axis, vertical long axis images were reviewed in detail. There was no visual TID. There were no significant perfusion defects with rest or with stress. LV function was normal with a calculated EF of 57%. There were no significant regional wall motion abnormalities. IMPRESSION: 1. Normal myocardial perfusion scan. No significant evidence of ischemia or prior infarct. 2. Normal left ventricular size and function. EF 57% with no regional wall motion abnormalities. 3. Negative stress EKG for ischemia at 86% maximum predicted heart rate. 4. Excellent exercise capacity. Exercised 7 minutes and 19 seconds achieving 10.1 METS. Borderline hypertensive response to exercise with blood pressure increasing to 210/80. Overall, this represents a low risk myocardial perfusion scan for future adverse cardiac events. MTDD
== END | disposition home or self-care (01) ==
LOC: C.NUCL 09:12
PROVIDERS: ATTEND Internal Medicine Interventional Cardiology
DX: I25.10 Atherosclerotic heart disease of native coronary artery without angina pectoris (principal)

== ENCOUNTER → 2017-07-13 | Outpatient (CLI) | payer OTHER | END | disposition home or self-care (01) | LOC: C.LAB1850 10:08 | PROVIDERS: ATTEND Internal Medicine Rheumatology | DX: Z12.5 Encounter for screening for malignant neoplasm of prostate (principal); N40.1 Benign prostatic hyperplasia with lower urinary tract symptoms; I77.6 Arteritis, unspecified; Z79.52 Long term (current) use of systemic steroids; M54.12 Radiculopathy, cervical region ==

== ENCOUNTER 2017-08-10 13:30 | Emergency (ER) | payer OTHER ==
[~2017-08-10] VITALS: Ht 167.6 cm; Wt 78.2 kg
[2017-08-10 13:30] VITALS: TEMP 36.6; O2SAT 98; Ht 167.6 cm; Wt 78.2 kg
[~2017-08-10 13:30] MED LIST changes: -CHOL1TAB42 PO; -DICL1GEL12 TOP
--- NOTE | 2017-08-10 14:16 | EMERGENCY ROOM VISIT NOTE ---
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 Family reports patient was unresponsive for about 30 seconds with emesis x1 when he woke Patient has a history of CO in 02/2017 with cardiac stents x2 History of Present Illness The patient is a 76 year old male with a past medical history of CO with 2 stents placed in 01/2017 who presents to the Emergency Room with complaints of a syncopal episode. The patient was in the [place] with his son in law and suddenly had double vision, vomited, and passed out for 30 seconds. The patient states that he was very warm and was dressed in hiking boots and long pants. During the event he denies any chest pain, palpitations, headache, slurred speech, dizziness, or changes in vision. He states that he ate a bagel for breakfast but did not have much to drink today. After passing out he immediately became alert and denies any confusion or neurological deficit. His blood pressure on arrival of EMT was 90 systolic so they decided to transport him to the hospital. At this time he denies any dizziness, changes in vision, chest pain, abdominal pain, diarrhea, vomiting, nausea, or any other acute complaints. Review of Systems See HPI for pertinent positives and negatives. A total of ten systems were reviewed and were otherwise negative. Constitutional: No fever, No chills, No fatigue Eyes: No worsening of vision, No diplopia, No problem reported Respiratory: No cough, No sputum, No shortness of breath Cardiovascular: No chest pain, No edema, No palpitations Abdomen: No pain, No nausea, No vomiting, No diarrhea, No constipation Neurologic: No paralysis, No weakness, No numbness/tingling, No vertigo Endocrine: No fatigue Past Medical/Surgical History Medical Problems: (1) Joint pain (2) Lumbar stenosis Surgical Problems: (1) H/O rotator cuff surgery (2) H/O umbilical hernia repair (3) Hip Joint Replacement Status (4) History of back surgery (5) History of carpal tunnel surgery of left wrist (6) History of carpal tunnel surgery of right wrist (7) Knee joint replacement status Family History Diabetes mellitus Heart disease Hypertension Social History Smoking Status: Never Smoker Alcohol Use: occasionally Marital Status: Housing Status: lives with family Occupation Status: retired Current/Historical Medications Scheduled Aspirin (Aspirin EC Low Dose), 81 MG PO QAM Cholecalciferol (Vitamin D), 5,000 UNITS PO DAILY Clopidogrel Bisulfate (Clopidogrel), 75 MG PO QAM Prednisone (Prednisone), 1 MG PO DAILY Physical Exam Vital Signs Date Time Temp Pulse Resp B/P (MAP) Pulse Ox O2 Delivery O2 Flow Rate FiO2 08/10/17 15:45 65 16 138/87 96 Room Air 08/10/17 14:37 65 16 132/77 94 Room Air 08/10/17 13:43 67 08/10/17 13:30 98 Room Air 08/10/17 13:30 36.6 67 16 130/65 98 Room Air 08/10/17 13:30 67 130/65 70 113/68 74 112/57 Physical Exam GENERAL: Awake, alert, well-appearing, in no distress HENT: Normocephalic, atraumatic. Oropharynx unremarkable. EYES: Normal conjunctiva. Sclera non-icteric. NECK: Supple. No nuchal rigidity. RESPIRATORY: Clear to auscultation. CARDIAC: Regular rate, normal rhythm. Extremities warm and well perfused. Pulses equal. ABDOMEN: Soft, non-distended. No tenderness to palpation. No rebound or guarding. No masses. RECTAL: Deferred. MUSCULOSKELETAL: Chest examination reveals no tenderness. The back is symmetrical on inspection without obvious abnormality. There is no CVA tenderness to palpation. No joint edema. LOWER EXTREMITIES: Calves are equal size bilaterally and non-tender. No edema. No discoloration. NEURO: Normal sensorium. No sensory or motor deficits noted. SKIN: No rash or jaundice noted. Medical Decision & Procedures Laboratory Results 08/10/17 13:40 Red Blood Count 4.45, Mean Corpuscular Volume 94.6, Mean Corpuscular Hemoglobin 32.1, Mean Corpuscular Hemoglobin Concent 34.0, Mean Platelet Volume 10.6, Neutrophils (%) (Auto) 74.2, Lymphocytes (%) (Auto) 14.9, Monocytes (%) (Auto) 6.5, Eosinophils (%) (Auto) 3.8, Basophils (%) (Auto) 0.4, Neutrophils # (Auto) 3.75, Lymphocytes # (Auto) 0.75, Monocytes # (Auto) 0.33, Eosinophils # (Auto) 0.19, Basophils # (Auto) 0.02 08/10/17 13:40 Test 08/10/17 13:40 08/10/17 15:55 08/10/17 16:21 White Blood Count 5.05 K/uL (4.8-10.8) Red Blood Count 4.45 M/uL (4.7-6.1) Hemoglobin 14.3 g/dL (14.0-18.0) Hematocrit 42.1 % (42-52) Mean Corpuscular Volume 94.6 fL (80-100) Mean Corpuscular Hemoglobin 32.1 pg (25-34) Mean Corpuscular Hemoglobin Concent 34.0 g/dl (32-36) Platelet Count 122 K/uL (130-400) Mean Platelet Volume 10.6 fL (7.4-10.4) Neutrophils (%) (Auto) 74.2 % Lymphocytes (%) (Auto) 14.9 % Monocytes (%) (Auto) 6.5 % Eosinophils (%) (Auto) 3.8 % Basophils (%) (Auto) 0.4 % Neutrophils # (Auto) 3.75 K/uL (1.4-6.5) Lymphocytes # (Auto) 0.75 K/uL (1.2-3.4) Monocytes # (Auto) 0.33 K/uL (0.11-0.59) Eosinophils # (Auto) 0.19 K/uL (0-0.5) Basophils # (Auto) 0.02 K/uL (0-0.2) RDW Standard Deviation 46.1 fL (36.4-46.3) RDW Coefficient of Variation 13.3 % (11.5-14.5) Immature Granulocyte % (Auto) 0.2 % Immature Granulocyte # (Auto) 0.01 K/uL (0.00-0.02) Anion Gap 13.0 mmol/L (3-11) Est Creatinine Clear Calc Drug Dose 45.5 ml/min Estimated GFR () 57.0 Estimated GFR (Non- 49.1 BUN/Creatinine Ratio 16.5 (10-20) Calcium Level 9.1 mg/dl (8.5-10.1) Urine Color DK YELLOW Urine Appearance CLEAR (CLEAR) Urine pH 6.5 (4.5-7.5) Urine Specific [place] 1.023 (1.000-1.030) Urine Protein TRACE (NEG) Urine Glucose (UA) NEG (NEG) Urine Ketones 1+ (NEG) Urine Occult Blood NEG (NEG) Urine Nitrite NEG (NEG) Urine Bilirubin NEG (NEG) Urine Urobilinogen NEG (NEG) Urine Leukocyte Esterase NEG (NEG) Urine WBC (Auto) 1-5 /hpf (0-5) Urine RBC (Auto) 0-4 /hpf (0-4) Urine Hyaline Casts (Auto) 5-10 /lpf (0-5) Urine Epithelial Cells (Auto) >30 /lpf (0-5) Urine Bacteria (Auto) NEG (NEG) Urine Renal Epithelial Cells /lpf (0-5) Bedside Troponin I < 0.030 ng/ml (0-0.045) Medications Administered Medications (Trade) Dose Ordered Sig/Suyapa Route Start Time Stop Time Status Last Admin Dose Admin Sodium Chloride 500 ml @ 1,000 mls/hr Q30M ONCE IV 08/10/17 14:30 08/10/17 14:59 DC 08/10/17 14:42 1,000 MLS/HR ECG Indication: syncope Rate (beats per minute): 67 Rhythm: normal sinus Findings: RBBB, T-wave inversion (lead 3) Change: no significant change (Compared to February 24 2017) ED Course Patient initially examined and no evident neurological or cardiac findings on physical exam Labs/ Imaging Ordered: - CBC - BMP - POC Troponin - CXR - UA - 500ml NS Bolus - CXR: No acute abnormalities - BMP showed elevated BUN, signifying probably dehydration - UA negative - POC Troponin <0.030 - After bolus of fluid patient has no acute complaints at this time Medical Decision Patient is a 76 year old male that presented to the ED with syncope Etiologies such as dehydration, vasovagal event, infection, hypoglycemia, electrolyte abnormalities, cardiac sources, intracerebral event, toxicologic, neurologic, as well as others were entertained. Patient most likely presented with syncope 2/2 to dehydration. BMP showed elevated BUN signifying dehydration. Cranial Nerve exam showed no acute abnormalities and patient did not have any head trauma during fall or history concerning for CVA. EKG appeared unchanged from February, and troponins were negative ruling out a cardiogenic source to the syncope. Patient to be discharged home with instruction to maintain adequate hydration and follow up with his PCP Impression Primary Impression: Syncope Additional Impression: Dehydration Departure Information Dispostion Home / Self-Care Condition GOOD Referrals Slade Moore M.D. (PCP) Patient Instructions My [facility] Resident Tracking Resident Involvement: Resident Care Provided Care Provided: Adult ED Problem Qualifiers Primary Impression: Syncope Syncope type: unspecified Qualified Codes: R55 - Syncope and collapse
[2017-08-10] MEDS ORDERED: CHOL1TAB42 PO (14:17)
[2017-08-10] MEDS ORDERED: PRD/1 PO (14:17)
[2017-08-10] MEDS ORDERED: DICL1GEL12 TOP (14:18)
[2017-08-10] MEDS ORDERED: SODIUM CHLORIDE 0.9% 500ML 500 ML IV ONE (14:30)
--- NOTE | 2017-08-10 14:55 | DIAGNOSTIC IMAGING REPORT ---
CHEST ONE VIEW PORTABLE CLINICAL HISTORY: Syncope mental status change COMPARISON STUDY: 03/17/2017 FINDINGS: The bones soft tissues and hemidiaphragms are normal. The cardiomediastinal silhouette is normal. The lungs are clear. The pulmonary vasculature is normal. IMPRESSION: Negative chest. The above report was generated using voice recognition software. It may contain grammatical, syntax or spelling errors. Electronically signed by: Bart Rich M.D. 08/10/2017 2:54 PM Dictated Date/Time: 08/10/2017 2:54 PM
[2017-08-10 15:37] LABS: BASO % 0.4 %; BASO ABS # 0.02 K/uL (0-0.2); COMPLETE YES; EOS % 3.8 %; HEMATOCRIT 42.1 % (42-52); IG% 0.2 %; LYMPH % 14.9 %; LYMPH ABS # 0.75 K/uL (1.2-3.4); MEAN CELL VOLUME 94.6 fL (80-100); MEAN CORPUSCULAR HEMOGLOBIN 32.1 pg (25-34); MEAN PLATELET VOLUME 10.6 fL (7.4-10.4); MONO % 6.5 %; NEUT % 74.2 %; PLATELET COUNT 122 K/uL (130-400); RED BLOOD COUNT 4.45 M/uL (4.7-6.1); WHITE BLOOD COUNT 5.05 K/uL (4.8-10.8)
[2017-08-10 15:49] LABS: BUN/CREATININE RATIO 16.5 (10-20); CALCIUM 9.1 mg/dl (8.5-10.1); CREATININE 1.4 mg/dl (0.60-1.40)
[2017-08-10 15:58] LABS: POTASSIUM 3.8 mmol/L (3.5-5.1)
[2017-08-10 16:13] LABS: URINE APPEARANCE CLEAR (CLEAR); URINE BILIRUBIN NEG (NEG); URINE COLOR DK YELLOW; URINE EPITHELIAL CELL AUTO >30 /lpf (0-5); URINE NITRITE NEG (NEG); URINE PH 6.5 (4.5-7.5); URINE SPECIFIC GRAVITY 1.023 (1.000-1.030); UROBILINOGEN NEG (NEG)
[2017-08-10 16:19] LABS: MANUAL MICROSCOPIC REQUIRED? NO; REVIEW REQ? YES
[2017-08-10 16:51] VITALS: BP 158/78; PULSE 66; O2SAT 96
--- NOTE | 2017-08-10 21:38 | EMERGENCY ROOM VISIT NOTE ---
History Report prepared by Char: Duke Yang Under the Supervision of: Dr. Rojas Farnsworth M.D. First contact with patient: 13:58 Chief Complaint: SYNCOPE Stated Complaint: SYNCOPE Nursing Triage Summary: Patient presents with c/o witnessed syncopal episode today while looking for a spot to hang his tree stand. Family reports patient was unresponsive for about 30 seconds with emesis x1 when he woke Patient has a history of [place] in 02/2017 with cardiac stents x2 History of Present Illness The patient is a 76 year old male who presents to the Emergency Room with complaints of resolved syncopal episode that occurred prior to arrival. The patient states that [place] son in law. He admits that he was wearing long pants and long sleeves to avoid getting a tick bite. He was walking while in the 86 weather. The patient states that he started to experience double and blurry vision for a couple of seconds. He reports that shortly after, he became nauseous and experienced one episode of vomiting. He states that he went to sit down because he was starting to experience weakness. The patient reports that his son in law sat him up against a tree to try and relax. The patient states that he then experienced a syncopal episode that lasted for 30 seconds to a minute. He reports that he was able to wake up after and was alert and oriented. The patient states that when the EMS arrived his blood pressure was 90/58. He states that he feels fine currently in the hospital and is not experiencing double vision or weakness. The patient reports that he only had a bagel today and did not drink much fluid. He states that he believes he passed out due to dehydration. The patient admits to a history of a myocardial infarction, which he had two stents placed in for, and a recent UTI. He denies any incontinence, numbness, weakness, chest pain, palpitations, headaches, diarrhea, abdominal pain, melena, and hematochezia. 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 A total of 10 systems reviewed and were otherwise negative. Past Medical & Surgical Medical Problems: (1) Joint pain (2) Lumbar stenosis Surgical Problems: (1) H/O rotator cuff surgery (2) H/O umbilical hernia repair (3) Hip Joint Replacement Status (4) History of back surgery (5) History of carpal tunnel surgery of left wrist (6) History of carpal tunnel surgery of right wrist (7) Knee joint replacement status Family History Diabetes mellitus Heart disease Hypertension Social History Smoking Status: Never Smoker Alcohol Use: occasionally Marital Status: Housing Status: lives with family Occupation Status: retired Current/Historical Medications Scheduled Aspirin (Aspirin EC Low Dose), 81 MG PO QAM Cholecalciferol (Vitamin D), 5,000 UNITS PO DAILY Clopidogrel Bisulfate (Clopidogrel), 75 MG PO QAM Prednisone (Prednisone), 1 MG PO DAILY Allergies Coded Allergies: Thiopental (Verified Adverse Reaction, Intermediate, YRS AGO- HALLUCINATIONS, 03/17/17) Physical Exam Vital Signs Date Time Temp Pulse Resp B/P (MAP) Pulse Ox O2 Delivery O2 Flow Rate FiO2 08/10/17 16:51 66 16 158/78 96 Room Air 08/10/17 15:45 65 16 138/87 96 Room Air 08/10/17 14:37 65 16 132/77 94 Room Air 08/10/17 13:43 67 08/10/17 13:30 98 Room Air 08/10/17 13:30 36.6 67 16 130/65 98 Room Air 08/10/17 13:30 67 130/65 70 113/68 74 112/57 Physical Exam Constitutional: Vital signs reviewed. Eyes: Pupils are equal round reactive to light. Conjunctiva are noninjected. ENT: Pharynx is clear without erythema or exudate. Mucous membranes are dry. Neck supple without meningeal signs. Respiratory: Clear to auscultation bilaterally. Breath sounds are equal bilaterally. Cardiovascular: Regular rate and rhythm. No rubs or gallops. GI: Soft, nondistended and nontender. Bowel sounds are present. Musculoskeletal: No peripheral edema. No lower extremity tenderness. Integumentary: No cyanosis. Neurological: The patient is awake and alert. Cranial nerves II-XII are intact. Motor is 5 out of 5 all extremities. Sensation is intact to light touch all extremities. Normal speech. No pronator drift. Psychiatric: Normal affect. Medical Decision & Procedures ER Provider Diagnostic Interpretation: X-ray results as stated below per interpretation by me and the radiologist: CHEST ONE VIEW PORTABLE CLINICAL HISTORY: Syncope mental status change COMPARISON STUDY: 03/17/2017 FINDINGS: The bones soft tissues and hemidiaphragms are normal. The cardiomediastinal silhouette is normal. The lungs are clear. The pulmonary vasculature is normal. IMPRESSION: Negative chest. The above report was generated using voice recognition software. It may contain grammatical, syntax or spelling errors. Electronically signed by: Bart Rich M.D. 08/10/2017 2:54 PM Dictated Date/Time: 08/10/2017 2:54 PM Laboratory Results 08/10/17 13:40 Red Blood Count 4.45, Mean Corpuscular Volume 94.6, Mean Corpuscular Hemoglobin 32.1, Mean Corpuscular Hemoglobin Concent 34.0, Mean Platelet Volume 10.6, Neutrophils (%) (Auto) 74.2, Lymphocytes (%) (Auto) 14.9, Monocytes (%) (Auto) 6.5, Eosinophils (%) (Auto) 3.8, Basophils (%) (Auto) 0.4, Neutrophils # (Auto) 3.75, Lymphocytes # (Auto) 0.75, Monocytes # (Auto) 0.33, Eosinophils # (Auto) 0.19, Basophils # (Auto) 0.02 08/10/17 13:40 Test 08/10/17 13:40 08/10/17 15:55 08/10/17 16:21 White Blood Count 5.05 K/uL (4.8-10.8) Red Blood Count 4.45 M/uL (4.7-6.1) Hemoglobin 14.3 g/dL (14.0-18.0) Hematocrit 42.1 % (42-52) Mean Corpuscular Volume 94.6 fL (80-100) Mean Corpuscular Hemoglobin 32.1 pg (25-34) Mean Corpuscular Hemoglobin Concent 34.0 g/dl (32-36) Platelet Count 122 K/uL (130-400) Mean Platelet Volume 10.6 fL (7.4-10.4) Neutrophils (%) (Auto) 74.2 % Lymphocytes (%) (Auto) 14.9 % Monocytes (%) (Auto) 6.5 % Eosinophils (%) (Auto) 3.8 % Basophils (%) (Auto) 0.4 % Neutrophils # (Auto) 3.75 K/uL (1.4-6.5) Lymphocytes # (Auto) 0.75 K/uL (1.2-3.4) Monocytes # (Auto) 0.33 K/uL (0.11-0.59) Eosinophils # (Auto) 0.19 K/uL (0-0.5) Basophils # (Auto) 0.02 K/uL (0-0.2) RDW Standard Deviation 46.1 fL (36.4-46.3) RDW Coefficient of Variation 13.3 % (11.5-14.5) Immature Granulocyte % (Auto) 0.2 % Immature Granulocyte # (Auto) 0.01 K/uL (0.00-0.02) Anion Gap 13.0 mmol/L (3-11) Est Creatinine Clear Calc Drug Dose 45.5 ml/min Estimated GFR () 57.0 Estimated GFR (Non- 49.1 BUN/Creatinine Ratio 16.5 (10-20) Calcium Level 9.1 mg/dl (8.5-10.1) Urine Color DK YELLOW Urine Appearance CLEAR (CLEAR) Urine pH 6.5 (4.5-7.5) Urine Specific Baker 1.023 (1.000-1.030) Urine Protein TRACE (NEG) Urine Glucose (UA) NEG (NEG) Urine Ketones 1+ (NEG) Urine Occult Blood NEG (NEG) Urine Nitrite NEG (NEG) Urine Bilirubin NEG (NEG) Urine Urobilinogen NEG (NEG) Urine Leukocyte Esterase NEG (NEG) Urine WBC (Auto) 1-5 /hpf (0-5) Urine RBC (Auto) 0-4 /hpf (0-4) Urine Hyaline Casts (Auto) 5-10 /lpf (0-5) Urine Epithelial Cells (Auto) >30 /lpf (0-5) Urine Bacteria (Auto) NEG (NEG) Urine Renal Epithelial Cells /lpf (0-5) Bedside Troponin I < 0.030 ng/ml (0-0.045) Laboratory results as reviewed by me. Medications Administered Medications (Trade) Dose Ordered Sig/Suy[place] Route Start Time Stop Time Status Last Admin Dose Admin Sodium Chloride 500 ml @ 1,000 mls/hr Q30M ONCE IV 08/10/17 14:30 08/10/17 14:59 DC 9/25/17 14:42 1,000 MLS/HR ECG Indication: syncope Rate (beats per minute): 67 Rhythm: normal sinus Findings: Q waves (lead 3), RBBB, T-wave inversion (lead 3) Comparison ECG Date: 02/24/17 Change: no significant change ED Course 1429: The patient was evaluated in room C11B. A complete history and physical exam was performed. 1430: Ordered Sodium Chloride 500 ml @ 1000 mls/hr IV. Medical Decision This is a 76-year-old male presents with syncope. Differential diagnosis includes vasovagal syncope, dehydration, orthostatic hypotension, anemia, dysrhythmia, metabolic derangement. I did perform a limited focused review of portions of the patient's old chart on the electronic medical record. The patient has had no recent pertinent visits to this hospital. I did evaluate the patient as noted above. IV access was established. 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 I did order and personally review the patient's 12-lead EKG and chest x-ray as described above. His 12- lead EKG shows no acute ischemic changes. He has an old right bundle-branch block and Q waves inferiorly. Chest x-ray is unremarkable. Urinalysis does not show any signs of infection. I did order and review the patient's blood work as noted in the electronic medical record. He is not anemic. 2 sets of troponin were obtained and are both negative. He does have signs of orthostatic hypotension. He was given normal saline IV. On reassessment he remains asymptomatic and without complaints. At this time symptoms seem to be a combination of dehydration and slight heat exhaustion. He has no signs of a stroke or cardiac ischemia. He did state that he has not been drinking any fluids all day despite the weather. The patient was discharged in good condition and will follow closely with his doctor. Resident Physician Supervision Note: I did evaluate and examine this patient myself. I did guide management for the patient. I agree with the resident's (Dr. Holloway) assessment as discussed. Please see the resident's dictation for further details. Medication Reconcilliation Current Medication List: was personally reviewed by me Blood Pressure Screening Patient's blood pressure: Elevated blood pressure Impression Primary Impression: Syncope Additional Impressions: Orthostatic hypotension Dehydration Scribe Attestation The scribe's documentation has been prepared under my direct and personally reviewed by me in its entirety. I confirm that the note above accurately reflects all work, treatment, procedures, and medical decision making performed by me. Departure Information Dispostion Home / Self-Care Referrals Beau Moore M.D. (PCP) Patient Instructions My [facility] Additional Instructions You have been examined and treated today on an emergency basis only. This is not a substitute for, or an effort to provide, complete comprehensive medical care. It is impossible to recognize and treat all injuries or illnesses in a single emergency department visit. It is therefore important that you follow up closely with your physician. Call as soon as possible for an appointment. Return for worsening symptoms or if you develop fever, vomiting, chest discomfort, shortness of breath, palpitations or any other concerning symptoms. Do not engage in any activity that may put yourself or others at risk should you pass out again. This includes, but is not limited to, driving, taking a bath, climbing heights, swimming or operating heavy machinery. You were treated for fainting believed to be secondary to dehydration based on your clinical appearance and lab workup. You were given a 500ml bolus of fluid in the emergency department and your symptoms had appeared to resolve on further evaluation. Make sure to maintain adequate hydration and monitor your intake of fluids to prevent future episodes of dehydration Please follow up with your family doctor in the next week for follow up Problem Qualifiers Primary Impression: Syncope Syncope type: unspecified Qualified Codes: R55 - Syncope and collapse
== END 2017-08-10 17:20 | disposition home or self-care (01) ==
LOC: EDBD 13:30 → EDSEX 13:30 → C.EDC 13:31
DX: R55 Syncope and collapse (principal); E86.0 Dehydration; M48.06 Spinal stenosis, lumbar region; I45.10 Unspecified right bundle-branch block; I25.2 Old myocardial infarction; Z95.5 Presence of coronary angioplasty implant and graft; Z96.649 Presence of unspecified artificial hip joint; Z96.659 Presence of unspecified artificial knee joint; Z79.82 Long term (current) use of aspirin; Z83.3 Family history of diabetes mellitus; Z82.49 Family history of ischemic heart disease and other diseases of the circulatory system

== ENCOUNTER → 2017-10-21 | Outpatient (CLI) | payer OTHER ==
[~2017-10-21] MED LIST changes: +CHOL1TAB42 PO; -CHOL200010 PO; -LPT40 PO
[2017-10-21 17:39] LABS: BASO % 0.3 %; BASO ABS # 0.01 K/uL (0-0.2); COMPLETE YES; EOS % 4.7 %; HEMATOCRIT 42.7 % (42-52); LYMPH % 18.7 %; LYMPH ABS # 0.71 K/uL (1.2-3.4); MEAN CORPUSCULAR HEMOGLOBIN 31.6 pg (25-34); MEAN CORPUSCULAR HGB CONC 32.6 g/dl (32-36); MEAN PLATELET VOLUME 10.6 fL (7.4-10.4); MONO % 5.5 %; NEUT % 70.8 %; PLATELET COUNT 130 K/uL (130-400)
[2017-10-21 17:47] LABS: ALT/SGPT 20 U/L (12-78); AST/SGOT 14 U/L (15-37); BLOOD UREA NITROGEN 22 mg/dl (7-18); BUN/CREATININE RATIO 17.2 (10-20); CALCIUM 8.4 mg/dl (8.5-10.1); CARBON DIOXIDE 28 mmol/L (21-32); CHLORIDE 106 mmol/L (98-107); GLUCOSE 182 mg/dl (70-99); POTASSIUM 3.8 mmol/L (3.5-5.1); SODIUM 138 mmol/L (136-145)
[2017-10-21 17:58] LABS: ALB/GLOB RATIO 1.1 (0.9-2); ALKALINE PHOSPHATASE 98 U/L (45-117)
== END | disposition home or self-care (01) ==
LOC: C.LABPBG 11:57
PROVIDERS: ATTEND Internal Medicine Geriatric Medicine
DX: M19.90 Unspecified osteoarthritis, unspecified site (principal); D69.6 Thrombocytopenia, unspecified; R79.89 Other specified abnormal findings of blood chemistry; I10 Essential (primary) hypertension; E55.9 Vitamin D deficiency, unspecified; M06.4 Inflammatory polyarthropathy; G57.02 Lesion of sciatic nerve, left lower limb; I77.6 Arteritis, unspecified

== ENCOUNTER → 2018-01-14 | Outpatient (CLI) | payer OTHER ==
[2018-01-14 13:31] LABS: TRANSFERRIN 191 mg/dl (200-360)
== END | disposition home or self-care (01) ==
LOC: C.LABPBG 09:44
PROVIDERS: ATTEND Internal Medicine Rheumatology
DX: M06.4 Inflammatory polyarthropathy (principal); M31.7 Microscopic polyangiitis

== ENCOUNTER → 2018-03-23 | Outpatient (CLI) | payer OTHER ==
[~2018-03-23] MED LIST changes: -ASPEC81 PO; +ASPI-320 PO
[2018-03-23 14:30] LABS: HEMOGLOBIN A1C 5.5 % (4.5-5.6)
[2018-03-23 14:31] LABS: BLOOD UREA NITROGEN 22 mg/dl (7-18); CREATININE 1.34 mg/dl (0.60-1.40)
== END | disposition home or self-care (01) ==
LOC: C.LABPBG 10:25
PROVIDERS: ATTEND Urology
DX: R73.9 Hyperglycemia, unspecified (principal); N42.89 Other specified disorders of prostate

== ENCOUNTER → 2018-03-31 | Outpatient (CLI) | payer OTHER ==
[~2018-03-31] MED LIST changes: +GADAVIST IV PRN
--- NOTE | 2018-03-31 13:05 | DIAGNOSTIC IMAGING REPORT ---
PROSTATE MRI COMBO CLINICAL HISTORY: 77 years-old Male presenting with PROSTATE INDURATION. TECHNIQUE: Multisequence, multiplanar MR imaging of the prostate was performed before and after the administration of intravenous contrast. Additional postprocessing was performed on a separate [employer] workstation by the radiologist for 3-D volumetric segmentation of the prostate and contouring of region(s) of interest (DREA) for targeting. IV contrast: 8 cc intravenous Gadavist COMPARISON: None. FINDINGS: Prostate: The prostate measures 5.8 x 4.8 x 5.3 cm (DynaCAD prostate boundary segmentation volume 66.9 mL). Moderate changes of benign prostatic hyperplasia. Precontrast T1 weighted imaging demonstrates no evidence of intrinsic T1 hyperintensity to suggest hemorrhage. Suspicious lesion(s) described below: Lesion ([employer] DREA) 1: Location: Left posterior medial and posterior lateral peripheral zone at the apex. The lesion does not extend across the midline. Size: 12 mm (as measured on ADC for PZ lesion and T2WI for TZ lesion) T2W: Grade 2 No evidence of extraprostatic extension, seminal vesicle invasion, or neurovascular bundle involvement. DWI: 3. Focal mildly/moderately hypointense on ADC and isointense/mildly hyperintense on high b-value DWI. DCE: Negative PI-RADS: 3. Intermediate (the presence of clinically significant cancer is equivocal) Lesion ([employer] DREA) 2: Location: Left anterior transitional zone at the apex. The lesion does not extend across the midline. Size: 6 mm (as measured on ADC for PZ lesion and T2WI for TZ lesion) T2W: Grade 3 No evidence of extraprostatic extension, seminal vesicle invasion, or neurovascular bundle involvement. DWI: 3. Focal mildly/moderately hypointense on ADC and isointense/mildly hyperintense on high b-value DWI. DCE: Positive PI-RADS: 4. Seminal vesicles normal. Bladder: Mildly trabeculated Bowel: There is sigmoid diverticulosis. Peritoneum: No free fluid in the pelvis. Lymph nodes: No lymphadenopathy in the visualized portion of the pelvis. Vasculature: Iliac vessels patent. Abdominal wall: Normal. Osseous structures: Normal bone marrow signal intensity. IMPRESSION: 1. Technically limited study with diffusion-weighted imaging artifact due to magnetic field in image and 80 from a prostatic right hip 2. 6 mm PI-RADS 4 lesion within the anterior transitional zone at the apex. 3. 12 mm PI-RADS 3 lesion within the posterior medial and posterior lateral peripheral zone at the apex. 4. The prostate gland with segmented, and the above lesions were marked for possible subsequent biopsy. Electronically signed by: Ty Sawyer M.D. 03/31/2018 1:03 PM Dictated Date/Time: 03/31/2018 12:38 PM
== END | disposition home or self-care (01) ==
LOC: C.MRIBC 10:56
PROVIDERS: ATTEND Urology
DX: N42.89 Other specified disorders of prostate (principal)

== ENCOUNTER → 2018-06-08 | Outpatient (CLI) | payer OTHER ==
[~2018-06-08] MED LIST changes: -GADAVIST IV PRN
== END | disposition home or self-care (01) ==
LOC: C.LABPBG 10:16
PROVIDERS: ATTEND Physician Assistant
DX: R51 Headache (principal)

== ENCOUNTER → 2018-07-01 | Outpatient (CLI) | payer OTHER | END | disposition home or self-care (01) | LOC: C.PATHSPEC 16:56 | PROVIDERS: ATTEND Urology | DX: C61 Malignant neoplasm of prostate (principal) ==

== ENCOUNTER 2022-04-15 11:16 | Inpatient (IN) ==
--- NOTE | 2022-04-15 11:58 | Emergency Department Note ---
History of Present Illness General Chief complaint: Referred by Doctor Stated complaint: AFIB, CANNOT BREATH Time Seen by Provider: 04/15/22 11:48 History of Present Illness Provider complaint: Shortness of breath Onset (ago): day(s) 2 Location: chest Radiation: non-radiation Maximum Pain Intensity: 6 Current Pain Intensity: 0 Relieved By: + none Exacerbated By: + none Associated symptoms: + malaise and + shortness of breath; no chest pain, no cough, no fever/chills, no headaches or no nausea/vomiting 81-year-old male on Eliquis presents emergency department for shortness of breath. Patient reports that his symptoms began 2 days ago after he was cardioverted by Dr. Sarkar. Patient reports no chest pain. No headache. No nausea vomiting or diarrhea. No melena or hematochezia. Patient states he cannot catch his breath. Patient is not vaccinated against COVID-19. Home Medications Medication Instructions Recorded Confirmed Type aspirin 81 mg tablet,delayed 81 mg PO DAILY #30 tab 09/12/19 04/15/22 Rx release (Adult Low Dose Aspirin) cholecalciferol (vitamin D3) 50 2,000 units PO DAILY cap 04/10/20 04/15/22 History mcg (2,000 unit) capsule atorvastatin 40 mg tablet 40 mg PO DAILY #90 tab 12/17/21 04/15/22 Rx apixaban 5 mg tablet (Eliquis) 5 mg PO BID 04/11/22 04/15/22 History amlodipine 10 mg tablet 10 mg PO DAILY 04/15/22 04/15/22 History Allergies Allergy/AdvReac Type Severity Reaction Status Date / Time thiopental AdvReac Intermediate YRS Verified 04/15/22 12:51 AGO-HALLUCINATIONS Past Med/Surg History Medical History Afib On Eliquis Arteriosclerotic coronary artery disease S/p NSTEMI and PCI with TRA x 2 to RCA in 2016 ; repeat cardiac cath 10/2021- moderate mid RCA ISR, severe small PDA disease BPH (benign prostatic hyperplasia) Carotid stenosis Left ICA 50 to 69%, followed by Dr. Gerber. 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 Depression Dyslipidemia Esophageal reflux Foot drop Left Foot History of non-ST elevation myocardial infarction (NSTEMI) (02/2017) Pt denies Per records - post NSTEMI and PCI with TRA x 2 to RCA Hypertension Lumbar stenosis Microscopic polyangiitis Per records Multiple pulmonary nodules Prostate cancer (06/2018) S/p XRT 2018 Thrombocytopenia Plts stable at 125 on 04/03/22 labs Surgical History H/O heart artery stent (02/2017) PCI w/ TRA x 2 to RCA FOLLOWS W/ [place] CARDIO LAST VISIT 03/2022 H/O hernia repair H/O knee surgery Bilat 2002 H/O nasal septoplasty (2011) H/O umbilical hernia repair History of back surgery 1959's, 1979's, s, 2017 History of carpal tunnel surgery of left wrist History of carpal tunnel surgery of right wrist History of placement of ear tubes (2011) R ear S/P hip arthroscopy (2005) S/P lumbar laminectomy (12/22/16) Laminectomy L3, L4, L5, foraminotomy, partial facetectomy, decompression of cauda equina S/P rotator cuff repair (2014) R shoulder Family History Father , Passed age 85 of [place] Myocardial infarction Mother , Passed age 86 complications of broken hip No problems noted. Brother No problems noted. Sister No problems noted. Daughter No problems noted. Denies family history of Ovarian cancer Prostate cancer Breast cancer Lung cancer Colorectal cancer Social History Smoking Status: Never smoker Tobacco Type: Smokeless Tobacco (Dip or Chew) Age Started Using Tobacco: 50; Second Hand Exposure: No; Hx Alcohol Use: Yes (OCC.) Alcohol type: hard liquor Alcohol Intake Frequency: Monthly or Less Hx Substance Use: No Preferred Language: [place] Communication Ability: Effective Visual Impairment: No Limitations Hearing Ability: Hard of Hearing Hospitality Associate Required: No Beliefs That Will Affect Care: None marital status: Current Living Situation: Spouse current occupational status: retired How many Children do You have: 1 Feels Safe at Home: Yes Childhood Exposure to Second-Hand Smoke: No Diet Comment: regular caffeine: Yes (1 cup of coffee/day, 1 soda/day ) during the past year weight has: decreased > 10 lbs Dental Care, Regularly: Yes Physical Activity Frequency: Daily Physical Activity Frequency Comment: walking Seatbelt Use: always Sunscreen Use: No Assistive Devices: Denture - Upper Review of Systems A total of 10 systems reviewed and were otherwise negative Physical Exam Vital Signs Vital Signs - 24 hr 04/15/22 11:34 04/15/22 11:56 Temperature 36.9 C Temperature Source Temporal Artery Scan Pulse Rate 60 Pulse Rate [Right Finger] 64 Pulse Strength [Right Finger] Normal Respiratory Rate 20 17 Respiratory Effort / Characteristics Non-Labored Non-Labored Spontaneous Respiratory Depth Normal Normal Respiratory Pattern Regular Blood Pressure 138/79 Blood Pressure [Right Arm] 128/68 Blood Pressure Mean 98 Blood Pressure Mean [Right Arm] 88 Blood Pressure Position [Right Arm] Lying Pulse Oximetry 96 95 Oxygen Delivery Method Room Air Room Air Sepsis Recent Fever Within 48 Hours No Sepsis New/Unexplained Change in Mental Status N/A Sepsis Action Taken by Nursing No Action Required GENERAL: He is oriented to person, place, and time. He appears well-developed and well-nourished. He does not appear distressed. HENT: Exam performed. - Head: Normocephalic and atraumatic. - Right Ear: External ear normal. No mastoid tenderness. - Left Ear: External ear normal. No mastoid tenderness. - Mouth/Throat: The oropharynx is clear and moist. No trismus in the jaw. No dental abscesses or uvula swelling. No oropharyngeal exudate or tonsillar abscesses. EYES: Conjunctivae and EOM are normal. Pupils are equal, round, and reactive to light. Right eye exhibits no discharge. Left eye exhibits no discharge. No scleral icterus. NECK: Normal range of motion. Neck supple. No JVD present. No spinous process tenderness present. No carotid bruit present. No rigidity. No tracheal deviation and normal range of motion present. No Brudzinski's sign and no Kernig's sign noted. CV: Normal rate, irregular rhythm, normal heart sounds and intact distal pulses. There is no peripheral edema. Palpable radial pulses bue. PULM/CHEST: Effort normal and breath sounds normal. No respiratory distress. No stridor. He has no wheezes. He has no rales. - Chest Wall: He exhibits no tenderness. ABD: The abdomen is soft. Bowel sounds are normal. He has no distension. No mass is present. There is no tenderness. There is no rebound, no guarding, no Patton's sign and no tenderness at McBurney's point. Rovsig negative. MUSC/SKEL: Normal range of motion. There is no peripheral edema, tenderness or deformity. LYMPH: No cervical adenopathy. NEURO: He is alert and oriented to person, place, and time. He has normal strength. No cranial nerve deficit or sensory deficit. Coordination and gait normal. GCS eye subscore is 4. GCS verbal subscore is 5. GCS motor subscore is 6. Cerebellar tests wnl. SKIN: Skin is warm and dry. He is not diaphoretic. PSYCH: He has a normal mood and affect. Behavior is normal. Judgment and thought content normal. Course Course 1148: The patient was evaluated in room C9. A complete history and physical exam was performed Cardiac monitoring: An order was placed for continuous cardiac monitoring. The monitor shows a rate of 60 with sinus rhythm 1300: Vital signs stable. Troponin elevated. Chest x-ray shows cardiomegaly with cephalization. Discussed the case with Dr. Sarkar cardiology. States that if the patient's creatinine and kidney functions within normal limits to give the patient Lasix 40 mg and admit the patient to medicine and he will plan on possibly doing a catheterization on the patient tomorrow. He states he will hold the Eliquis in the a.m. 1400: Vital signs stable. Kidney function within normal limits. Lasix 40 mg ordered for the patient. Patient will be admitted to the [facility] hospitalist team spoke with James MORA who stated to admit to Dr. Lazar Medical Decision Making Laboratory Data Result diagrams: 04/15/22 11:50 04/15/22 11:50 Lab Results 04/15/22 04/15/22 04/15/22 Range/Units 11:50 11:50 11:50 WBC 5.39 (4.8-10.8) K/uL RBC 3.95 L (4.7-6.1) M/uL Hgb 13.1 L (14.0-18.0) g/dL Hct 38.9 L (42-52) % MCV 98.5 (80-100) fL MCH 33.2 (25-34) pg MCHC 33.7 (32-36) g/dL RDW Std Deviation 48.6 H (36.4-46.3) fL RDW Coeff of Mayur 13.4 (11.5-14.5) % Plt Count 113 L (130-400) K/uL MPV 10.5 H (7.4-10.4) fL Immature Gran % (Auto) 0.4 % Neut % (Auto) 72.1 % Lymph % (Auto) 15.8 % [place] % (Auto) 10.0 % Eos % (Auto) 1.5 % Baso % (Auto) 0.2 % Neut # (Auto) 3.89 (1.4-6.5) K/uL Lymph # (Auto) 0.85 L (1.2-3.4) K/uL [place] # (Auto) 0.54 (0.11-0.59) K/uL Eos # (Auto) 0.08 (0-0.5) K/uL Baso # (Auto) 0.01 (0-0.2) K/uL Immature Gran # (Auto) 0.02 (0.00-0.02) K/uL PT 12.8 H (9.0-12.0) Seconds INR 1.2 H (0.9-1.1) APTT 33.1 H (21.0-31.0) Seconds PTT Ratio 1.2 Sodium 139 (136-145) mmol/L Potassium 3.7 (3.5-5.1) mmol/L Chloride 105 (98-107) mmol/L Carbon Dioxide 28 (21-32) mmol/L Anion Gap 6 (3-11) BUN 17 (6-23) mg/dl Creatinine 1.29 (0.6-1.4) mg/dl Est Cr Clr Drug Dosing 46.4 ml/min Est GFR ( Amer) 60.7 ml/min Est GFR (Non-Af Amer) 52.4 ml/min BUN/Creatinine Ratio 13.2 (10-20) Glucose 141 H (70-99(Fasting)) mg/dl Calcium 8.4 L (8.5-10.1) mg/dl Magnesium 2.0 (1.7-2.4) mg/dl Total Bilirubin 2.0 H (0.2-1.0) mg/dl AST 12 L (13-39) U/L ALT 10 (7-52) U/L Alkaline Phosphatase 62 (34-104) U/L Troponin I High Sens 48.5 H (0-20) pg/ml Total Protein 6.1 (6.0-8.3) gm/dl Albumin 3.6 (3.4-5.0) gm/dl Globulin 2.5 (2.5-4.0) gm/dl Albumin/Globulin Ratio 1.4 (0.9-2) SARS-CoV-2 (PCR) (Negative) Influenza Type A (PCR) (Neg) Influenza Type B (PCR) (Neg) RSV (RT-PCR) (Neg) 04/15/22 Range/Units 11:57 WBC (4.8-10.8) K/uL RBC (4.7-6.1) M/uL Hgb (14.0-18.0) g/dL Hct (42-52) % MCV (80-100) fL MCH (25-34) pg MCHC (32-36) g/dL RDW Std Deviation (36.4-46.3) fL RDW Coeff of Mayur (11.5-14.5) % Plt Count (130-400) K/uL MPV (7.4-10.4) fL Immature Gran % (Auto) % Neut % (Auto) % Lymph % (Auto) % [place] % (Auto) % Eos % (Auto) % Baso % (Auto) % Neut # (Auto) (1.4-6.5) K/uL Lymph # (Auto) (1.2-3.4) K/uL [place] # (Auto) (0.11-0.59) K/uL Eos # (Auto) (0-0.5) K/uL Baso # (Auto) (0-0.2) K/uL Immature Gran # (Auto) (0.00-0.02) K/uL PT (9.0-12.0) Seconds INR (0.9-1.1) APTT (21.0-31.0) Seconds PTT Ratio Sodium (136-145) mmol/L Potassium (3.5-5.1) mmol/L Chloride (98-107) mmol/L Carbon Dioxide (21-32) mmol/L Anion Gap (3-11) BUN (6-23) mg/dl Creatinine (0.6-1.4) mg/dl Est Cr Clr Drug Dosing ml/min Est GFR ( Amer) ml/min Est GFR (Non-Af Amer) ml/min BUN/Creatinine Ratio (10-20) Glucose (70-99(Fasting)) mg/dl Calcium (8.5-10.1) mg/dl Magnesium (1.7-2.4) mg/dl Total Bilirubin (0.2-1.0) mg/dl AST (13-39) U/L ALT (7-52) U/L Alkaline Phosphatase (34-104) U/L Troponin I High Sens (0-20) pg/ml Total Protein (6.0-8.3) gm/dl Albumin (3.4-5.0) gm/dl Globulin (2.5-4.0) gm/dl Albumin/Globulin Ratio (0.9-2) SARS-CoV-2 (PCR) NEGATIVE (Negative) Influenza Type A (PCR) Negative (Neg) Influenza Type B (PCR) Negative (Neg) RSV (RT-PCR) Negative (Neg) Imaging Data Radiologist's Impression: Chest X-Ray 04/15/22 12:07 XR chest 1V portable HISTORY: 81 years-old Male sob acute shortness of breath COMPARISON: Chest radiograph 03/05/2022 TECHNIQUE: AP view of the chest FINDINGS: Cardiac silhouette is enlarged. Pulmonary vascular congestion with mild diffuse coarsening of interstitium, similar to mildly progressed. No pneumothorax, large pleural effusion or lobar airspace consolidation. Degenerative changes of the shoulders and spine. Surgical anchor of the left humeral head. IMPRESSION: Cardiomegaly with pulmonary vascular congestion. ACT 112: Negative or not required by law. The above report was generated using voice recognition software. It may contain grammatical, syntax or spelling errors. Electronically signed by: Marcell Shannon M.D. 04/15/2022 12:44 PM ECG Data Indication: + SOB/dyspnea Rate (beats per minute): 65 Rhythm: + sinus with SA ECG ST segments: + Normal ST segments ECG Findings: + PVCs Additional Comments: [place] 196 QRS 142 QTC 472 bifascicular block present. [facility] Narrative 1148: The patient was evaluated in room C9. A complete history and physical exam was performed Cardiac monitoring: An order was placed for continuous cardiac monitoring. The monitor shows a rate of 60 with sinus rhythm 1300: Vital signs stable. Troponin elevated. Chest x-ray shows cardiomegaly with cephalization. Discussed the case with Dr. Sarkar cardiology. States that if the patient's creatinine and kidney functions within normal limits to give the patient Lasix 40 mg and admit the patient to medicine and he will plan on possibly doing a catheterization on the patient tomorrow. He states he will hold the Eliquis in the a.m. 1400: Vital signs stable. Kidney function within normal limits. Lasix 40 mg ordered for the patient. Patient will be admitted to the [facility] hospitalist team spoke with Jamse MORA who stated to admit to Dr. Lazar Impression & Plan Pulmonary edema, Elevated troponin Discharge Plan Visit Data Chief Complaint: Referred by Doctor Stated Complaint: AFIB, CANNOT BREATH ED Provider: Vinnie Barahona Discharge Problem: Pulmonary edema, Elevated troponin Patient Disposition: Admitted As Inpatient Forms Stand Alone Forms: My [facility] Prescriptions Prescriptions: No Action cholecalciferol (vitamin D3) 50 mcg (2,000 unit) capsule 2,000 units PO DAILY RF: 0 atorvastatin 40 mg tablet 40 mg PO DAILY Qty: 90 RF: 3 aspirin [Adult Low Dose Aspirin] 81 mg tablet,delayed release (DR/EC) 81 mg PO DAILY Qty: 30 RF: 2 Hold Instructions: Home Medication placed on hold at Doctor's office Eliquis 5 mg Tablet 5 mg PO BID RF: 0 amlodipine 10 mg tablet 10 mg PO DAILY RF: 0 Referrals Referrals: Amandeep Seo CRNP [Primary Care Provider] -
[2022-04-15 12:22] LABS: Basophils # (auto) 0.01 K/uL (0-0.2); Basophils % (auto) 0.2 %; Eosinophils # (auto) 0.08 K/uL (0-0.5); Eosinophils % (auto) 1.5 %; Hematocrit (blood only) 38.9 % (42-52); Hemoglobin 13.1 g/dL (14.0-18.0); Immature Granulocytes # (auto) 0.02 K/uL (0.00-0.02); Immature Granulocytes % (auto) 0.4 %; Lymphocytes # (auto) 0.85 K/uL (1.2-3.4); Lymphocytes % (auto) 15.8 %; Mean Corpuscular Hemoglobin 33.2 pg (25-34); Mean Corpuscular Hgb Conc 33.7 g/dL (32-36); Mean Corpuscular Volume 98.5 fL (80-100); Mean Platelet Volume 10.5 fL (7.4-10.4); Monocytes # (auto) 0.54 K/uL (0.11-0.59); Neutrophils # (auto) 3.89 K/uL (1.4-6.5); Neutrophils % (auto) 72.1 %; Platelet Count 113 K/uL (130-400); RDW Coefficient of Variation 13.4 % (11.5-14.5); RDW Standard Deviation 48.6 fL (36.4-46.3); Red Blood Count 3.95 M/uL (4.7-6.1); White Blood Count 5.39 K/uL (4.8-10.8)
[2022-04-15 12:33] LABS: INR 1.2 (0.9-1.1); Partial Thromboplastin Ratio 1.2; Partial Thromboplastin Time 33.1 Seconds (21.0-31.0); Prothrombin Time 12.8 Seconds (9.0-12.0)
--- NOTE | 2022-04-15 12:45 | XRay Report ---
XR chest 1V portable HISTORY: 81 years-old Male sob acute shortness of breath COMPARISON: Chest radiograph 03/05/2022 TECHNIQUE: AP view of the chest FINDINGS: Cardiac silhouette is enlarged. Pulmonary vascular congestion with mild diffuse coarsening of interst itium, similar to mildly progressed. No pneumothorax, large pleural effusion or lobar airspace consol idation. Degenerative changes of the shoulders and spine. Surgical anchor of the left humeral head. IMPRESSION: Cardiomegaly with pulmonary vascular congestion. ACT 112: Negative or not required by law. The above report was generated using voice recognition software. It may contain grammatical, syntax o r spelling errors. Electronically signed by: Marcell Shannon M.D. 04/15/2022 12:44 PM
[2022-04-15 12:54] LABS: Troponin I High Sensitivity 48.5 pg/ml (0-20)
[2022-04-15 13:11] LABS: Albumin Globulin Ratio 1.4 (0.9-2); Albumin Level 3.6 gm/dl (3.4-5.0); BUN Creatinine Ratio 13.2 (10-20); Calcium 8.4 mg/dl (8.5-10.1); Creatinine Clr Calc Pharmacy 46.4 ml/min; Est GFR (African American) 60.7 ml/min; Est GFR (Non-African American) 52.4 ml/min; Globulin 2.5 gm/dl (2.5-4.0); Potassium 3.7 mmol/L (3.5-5.1); Total Protein 6.1 gm/dl (6.0-8.3)
[2022-04-15] MEDS ORDERED: FUROSEMIDE 40 MG/4 ML VIAL IV ONE (13:42)
[2022-04-15 13:46] LABS: Influenza A virus by PCR Negative (Neg); Influenza B virus by PCR Negative (Neg); RSV by PCR Negative (Neg); SARS CoV2 RNA(COVID-19) InHosp NEGATIVE (Negative)
--- NOTE | 2022-04-15 14:10 | History & Physical Report ---
Date of Service April 15, 2022 Assessment & Plan (1) Elevated troponin: Plan: Without chest pain but presents with dyspnea - DDX: Ischemia vs. demand from dyspnea - Continue to trend- repeat at 2 hour sudarshan downtrending - Hold his Eliquis in the morning for cath in AM - Continue ASA, statin (2) PVCs (premature ventricular contractions): Plan: Patient with frequent unifocal PVCs - Continue to trend HScTNI and ECGs- planned for cath in am - K- 3.7 and Mag 2.0- will replete potassium with 40MEQ PO (3) Dyspnea: Plan: Dyspnea with exertion and while resting although not hypoxic or tachycardic - PE unlikely as not hypoxic and is anticoagulated with no reported missed doses - Pulmonary congestion suggestive on CXR- 40mg IV Lasix given by EMD - follow - 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 Small RPDA with 70% proximal stenosis after prior stent, 95% mid stenosis. -50-60% mid LAD, 80% ostial small 2nd diagonal - Did not tolerate BB previously by report- is on amlodpinie, asa, statin- continue these (5) Carotid stenosis: Plan: Left ICA 50 to 69%- follows with [facility] [place] [facility] - repeat duplex this year - no symptoms reported for worsening disease - Continue ASA, Statin (6) Chronic kidney disease, stage 3 (moderate): Plan: CASTER HELPER improved at this time from baseline- normal 1.3-1.4 - Follow (7) Hypertension: Plan: Well controlled - as above (8) Prostate cancer: Plan: Not acute- completed radiation - symptoms controlled per patient review - (9) Elevated bilirubin: Plan: Likely secondary to hepatic congestion - increased since 03/08 - follow- normal CT scan of February Plan: TORSTEN Supervision note: I have personally seen and examined the patient and discussed and verified the ndiaye points of the history and physical along with the plan with TORSTEN Tello with the following exceptions and/or additions: Patient presents with worsening shortness of breath over the last month but much worse in the last few days since his cardioversion. He remains in sinus rhythm. Denies chest pains but has significant dyspnea with minimal activity. He does snore at night but has never been checked for sleep apnea. He has not smoked in many decades. History and ROS reviewed otherwise as above Vitals reviewed Gen: AAOx3, NAD HEENT: Anicteric sclerae, EOMI CV: RRR no mgr nl S1S2 Pulm: CTAB no wcr Abd: +BS soft NT ND no masses or hernias Ext: No edema, 2+ DP pulses Skin: No rashes, warm/dry Neuro: Full strength throughout Labs, rads, ECG reviewed Assessment/plan: 81-year-old male with history as above, here with progressively worsening shortness of breath. 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 Patient has been having dyspnea and inability to catch his breath that has been getting progressively worse over the past month. He follows with cardiology- at that time it was felt this may be related to his atrial fibrillation and the patient was cardioverted 04/11/22, he remains in NSR to sinus junior. His symptoms did not improve, he was referred to the EMD for plans to perform cardiac catheterization tomorrow. The patient states that he can go up 13 steps at home from his basement, but is extremely tired at the top and has to take a break. He is not hypoxic and is not tachycardic. In the EMD the patient had routine labs performed to include HScTNI, CXR, ECG. He was given 40mg of IV Lasix. His CXR was noted as pulmonary congestion, coarsening of interstitium, normal volumes without effusion or pthx. His HScTNI was 48.5. His most recent ECHO was in 04/09/22 with EF 55-60% mild MR, no wall motion abnormalities, but notable for biatrial enlargement and reduced RV function. His ECG reveals NSR with PVS and RBB- his RBB is present post cardioversion and prior. He denies any chest pain or palpitations even while dyspneic. He does not endorse any swelling in his legs, cough, fevers or chills. COVID/FLU/RSV test on admission is: NEGATIVE Allergies Allergy/AdvReac Type Severity Reaction Status Date / Time thiopental AdvReac Intermediate YRS Verified 04/15/22 12:51 AGO-HALLUCINATIONS Home Medications Medication Instructions Recorded Confirmed Type aspirin 81 mg tablet,delayed 81 mg PO DAILY #30 tab 09/12/19 04/15/22 Rx release (Adult Low Dose Aspirin) cholecalciferol (vitamin D3) 50 2,000 units PO DAILY cap 04/10/20 04/15/22 History mcg (2,000 unit) capsule atorvastatin 40 mg tablet 40 mg PO DAILY #90 tab 12/17/21 04/15/22 Rx apixaban 5 mg tablet (Eliquis) 5 mg PO BID 04/11/22 04/15/22 History amlodipine 10 mg tablet 10 mg PO DAILY 04/15/22 04/15/22 History Past Med/Surg History Medical History Afib On Eliquis Arteriosclerotic coronary artery disease S/p NSTEMI and PCI with TRA x 2 to RCA in 2016 ; repeat cardiac cath 10/2021- moderate mid RCA ISR, severe small PDA disease BPH (benign prostatic hyperplasia) Carotid stenosis Left ICA 50 to 69%, followed by Dr. Gerber. 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 Depression Dyslipidemia Esophageal reflux Foot drop Left Foot History of non-ST elevation myocardial infarction (NSTEMI) (02/2017) Pt denies Per records - post NSTEMI and PCI with TRA x 2 to RCA Hypertension Lumbar stenosis Microscopic polyangiitis Per records Multiple pulmonary nodules Prostate cancer (06/2018) S/p XRT 2018 Thrombocytopenia Plts stable at 125 on 04/03/22 labs Surgical History H/O heart artery stent (02/2017) PCI w/ TRA x 2 to RCA FOLLOWS W/ [place] CARDIO LAST VISIT 03/2022 H/O hernia repair H/O knee surgery Bilat 2002 H/O nasal septoplasty (2011) H/O umbilical hernia repair History of back surgery 1959's, 1979's, 1989's, 2018 History of carpal tunnel surgery of left wrist History of carpal tunnel surgery of right wrist History of placement of ear tubes (2011) R ear S/P hip arthroscopy (2005) S/P lumbar laminectomy (12/22/16) Laminectomy L3, L4, L5, foraminotomy, partial facetectomy, decompression of cauda equina S/P rotator cuff repair (2014) R shoulder Family History Father , Passed age 85 of [place] Myocardial infarction Mother , Passed age 86 complications of broken hip No problems noted. Brother No problems noted. Sister No problems noted. Daughter No problems noted. 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 Beliefs That Will Affect Care: None marital status: Current Living Situation: Spouse current occupational status: retired How many Children do You have: 1 Other Information That Helps Us Care for You: No Feels Safe at Home: Yes Safety Concerns: Feels Safe At This Time Childhood Exposure to Second-Hand Smoke: No Diet Comment: regular caffeine: Yes (1 cup of coffee/day, 1 soda/day ) during the past year weight has: decreased > 10 lbs Dental Care, Regularly: Yes Physical Activity Frequency: Daily Physical Activity Frequency Comment: walking Seatbelt Use: always Sunscreen Use: No Assistive Devices: None Review of Systems Review of Systems: REVIEW OF SYSTEMS: Constitutional: No fever, sweats or chills Eyes: No diplopia, no worsening or blurred vision ENT: normal hearing, no trouble swallowing Respiratory: (+) dyspnea at rest or on exertion, No cough, sputum, Cardiovascular: No chest pain, tightness or palpitations Abdomen: No pain, nausea, vomiting, diarrhea or constipation Musculoskeletal: No joint pain, calf pain, swelling Neurologic: No weakness, numbness/tingling, or balance problems Psychiatric: No anxiety or depression Skin: No rash or itch Physical Exam Physical Exam: PHYSICAL EXAM: General: awake, alert, no apparent distress Head: Normocephalic, atraumatic ENT: PERRL, EOMI, no pharyngeal exudate, mucous membranes moist Neuro: AAO x 3, speech clear and appropriate, strength intact bilaterally 5/5, sensation intact and equal all extremities and dermatomes, no pronator drift Chest: equal rise and fall of the chest, no accessory muscle use, no heaves or thrills, scattered crackles in bases, dyspneic without wheezing Cardiac: Regular rate and rhythm, telemetry reviewed- NSR with PVCs, skin warm dry, cap refill <3 seconds, peripheral pulses +2 no JVD, no murmur, no edema GI: NABS x 4 quadrants, soft, nontender to palpation, no rebound, guarding or tenderness : Spontaneously voiding, no pain, no CVA tenderness, Extremities: Normal inspection, no peripheral edema or erythema, calfs nontender to palpation Psych: Normal mood and affect Skin: no rash or erythema Results & Data Results & Data ([facility]) Vital Signs (Past 12 Hours) Vital Signs Temp Pulse Pulse Resp BP BP Pulse Ox 04/15/22 11:56 64 17 128/68 95 04/15/22 11:34 36.9 C 60 20 138/79 96 Laboratory Results Abnormal lab results 04/15/22 04/15/22 04/15/22 Range/Units 11:50 11:50 11:50 RBC 3.95 L (4.7-6.1) M/uL Hgb 13.1 L (14.0-18.0) g/dL Hct 38.9 L (42-52) % RDW Std Deviation 48.6 H (36.4-46.3) fL Plt Count 113 L (130-400) K/uL MPV 10.5 H (7.4-10.4) fL Lymph # (Auto) 0.85 L (1.2-3.4) K/uL PT 12.8 H (9.0-12.0) Seconds INR 1.2 H (0.9-1.1) APTT 33.1 H (21.0-31.0) Seconds Glucose 141 H (70-99(Fasting)) mg/dl Calcium 8.4 L (8.5-10.1) mg/dl Total Bilirubin 2.0 H (0.2-1.0) mg/dl AST 12 L (13-39) U/L Troponin I High Sens 48.5 H (0-20) pg/ml Diagnostic Findings Chest X-Ray 04/15/22 12:07 XR chest 1V portable HISTORY: 81 years-old Male sob acute shortness of breath COMPARISON: Chest radiograph 03/05/2022 TECHNIQUE: AP view of the chest FINDINGS: Cardiac silhouette is enlarged. Pulmonary vascular congestion with mild diffuse coarsening of interstitium, similar to mildly progressed. No pneumothorax, large pleural effusion or lobar airspace consolidation. Degenerative changes of the shoulders and spine. Surgical anchor of the left humeral head. IMPRESSION: Cardiomegaly with pulmonary vascular congestion. ACT 112: Negative or not required by law. The above report was generated using voice recognition software. It may contain grammatical, syntax or spelling errors. Electronically signed by: Marcell Shannon M.D. 04/15/2022 12:44 PM Medications Administered Home Medications aspirin 81 mg tablet,delayed release (Adult Low Dose Aspirin) 81 mg PO DAILY #30 tab 09/12/19 [Rx Confirmed 04/15/22] cholecalciferol (vitamin D3) 50 mcg (2,000 unit) capsule 2,000 units PO DAILY cap 04/10/20 [History Confirmed 04/15/22] atorvastatin 40 mg tablet 40 mg PO DAILY #90 tab 12/17/21 [Rx Confirmed 04/15/22] apixaban 5 mg tablet (Eliquis) 5 mg PO BID 04/11/22 [History Confirmed 04/15/22] amlodipine 10 mg tablet 10 mg PO DAILY 04/15/22 [History Confirmed 04/15/22] ECG Additional Comments: Sinus rhythm with occasional Premature ventricular complexes Right bundle branch block Left anterior fascicular block Bifascicular block Septal infarct (cited on or before 11-APR-2022) Abnormal ECG When compared with ECG of 11-APR-2022 07:19, (unconfirmed) Premature ventricular complexes are now Present Questionable change in initial forces of Septal leads Code Status & VTE Plan Code Status CODE: DNR/DNI VTE: SCDS, Eliquis VTE Prophylaxis Plan VTE Prophylaxis will be ordered: Yes PG Care Time/CCT Total # of Minutes Spent Total Time Spent with Patient: Total time spent is greater than 50% in coordination of care (as documented) at patient's floor/unit and/or counseling patient: Coding Level of Care Code 03891 Initial Inpt Care Lvl 3 Diagnoses Elevated troponin R77.8 PVCs (premature ventricular contractions) I49.3 Dyspnea R06.00 Arteriosclerotic coronary artery disease I25.10 Carotid stenosis I65.29 Chronic kidney disease, stage 3 (moderate) N18.3 Hypertension I10 Prostate cancer C61 Elevated bilirubin R17
[2022-04-15] MEDS ORDERED: POTASSIUM CHLORIDE CRTAB 20 MEQ TABCR PO STA (14:49)
--- NOTE | 2022-04-15 15:22 | Electrocardiogram Report ---
Test Reason : Blood Pressure : / mmHG Vent. Rate : 065 BPM Atrial Rate : 065 BPM P-R Int : 196 ms QRS Dur : 142 ms QT Int : 454 ms P-R-T Axes : 064 -66 006 degrees QTc Int : 472 ms Sinus rhythm with occasional Premature ventricular complexes Right bundle branch block Left anterior fascicular block Abnormal ECG When compared with ECG of 11-APR-2022 07:19, Premature ventricular complexes are now Present Confirmed by Marcel De Leon ([id number]) on 04/15/2022 3:21:54 PM Referred By: ED Confirmed By:Marcel De Leon
[2022-04-15] MEDS ORDERED: ACETAMINOPHEN 325 MG TAB PO PRN (19:01)
[2022-04-15] MEDS ORDERED: ONDANSETRON INJ 2 MG/ML 2 ML VIAL IV PRN (19:01)
[2022-04-15] MEDS ORDERED: APIXABAN 5 MG TABLET PO ONE (20:00)
[2022-04-16 06:58] LABS: Basophils # (auto) 0.01 K/uL (0-0.2); Basophils % (auto) 0.2 %; Eosinophils # (auto) 0.15 K/uL (0-0.5); Eosinophils % (auto) 3.7 %; Hematocrit (blood only) 41.2 % (42-52); Immature Granulocytes # (auto) 0.02 K/uL (0.00-0.02); Immature Granulocytes % (auto) 0.5 %; Lymphocytes # (auto) 0.64 K/uL (1.2-3.4); Lymphocytes % (auto) 15.8 %; Mean Corpuscular Hemoglobin 33.4 pg (25-34); Mean Corpuscular Volume 98.3 fL (80-100); Mean Platelet Volume 10.4 fL (7.4-10.4); Monocytes # (auto) 0.51 K/uL (0.11-0.59); Monocytes % (auto) 12.6 %; Neutrophils # (auto) 2.71 K/uL (1.4-6.5); Neutrophils % (auto) 67.2 %; Platelet Count 120 K/uL (130-400); RDW Coefficient of Variation 13.4 % (11.5-14.5); RDW Standard Deviation 48.2 fL (36.4-46.3); Red Blood Count 4.19 M/uL (4.7-6.1); White Blood Count 4.04 K/uL (4.8-10.8)
[2022-04-16 07:24] LABS: BUN Creatinine Ratio 14.7 (10-20); Calcium 8.8 mg/dl (8.5-10.1); Est GFR (African American) 50.6 ml/min; Est GFR (Non-African American) 43.7 ml/min
[2022-04-16] MEDS ORDERED: PNEUMOCOCCAL POLYSACCHARIDES 25 MCG/0.5 ML VIAL/SYR IM ONE (08:00)
[2022-04-16] MEDS: ATORVASTATIN 40 MG TAB PO SCH (09:50)
[2022-04-16] MEDS: ASPIRIN 81 MG ECTAB PO SCH (09:50)
[2022-04-16] MEDS ORDERED: HEPARIN (PORCINE) 1000 UNIT/ML 10 ML (CATH LAB USE ONLY) ONE (10:12)
[2022-04-16] MEDS ORDERED: niCARdipine HCL INJ 2.5 MG/ML 10 ML AMP ONE (10:12)
[2022-04-16] MEDS ORDERED: fentaNYL citrate 100 MCG/2 ML VIAL ONE (10:12)
[2022-04-16] MEDS ORDERED: MIDAZOLAM HCL 1 MG/ML 2ML VIAL ONE ×2 (10:12→11:46)
[2022-04-16] MEDS ORDERED: NITROGLYCERIN/D5W 100MCG/ML 20ML SYR ONE (10:13)
[2022-04-16 10:14] LABS: Albumin Level 3.7 gm/dl (3.4-5.0); Bilirubin Direct 0.3 mg/dl (0-0.2); Bilirubin,Total 1.7 mg/dl (0.2-1.0); Total Protein 6.4 gm/dl (6.0-8.3)
--- NOTE | 2022-04-16 11:11 | Pre Anesthesia Assessment ---
Date of Service April 16, 2022 Pre Sedation Assessment Vital Signs Temp Pulse Pulse Resp BP BP Pulse Ox 04/16/22 10:27 62 18 98 04/16/22 07:05 61 04/16/22 07:00 97.7 F 56 L 18 150/80 H 95 04/16/22 03:00 97.9 F 60 17 134/75 93 04/15/22 23:22 63 04/15/22 23:00 98.6 F 64 22 171/85 H 95 04/15/22 22:00 59 L 13 139/78 93 04/15/22 21:18 94 04/15/22 20:00 63 23 149/92 H 91 04/15/22 19:00 64 24 94 04/15/22 18:00 59 L 18 163/89 H 93 04/15/22 17:57 59 L 26 H 159/98 H 97 04/15/22 17:30 133/86 99 04/15/22 17:04 97 04/15/22 16:30 156/88 H 95 04/15/22 16:00 177/91 H 97 04/15/22 15:30 178/91 H 97 04/15/22 15:00 52 L 20 157/84 H 96 04/15/22 14:30 52 L 18 140/83 95 04/15/22 14:10 55 L 24 157/88 H 96 04/15/22 14:00 53 L 60 18 157/88 H 94 04/15/22 13:00 53 L 22 94 04/15/22 12:27 58 L 25 H 94 04/15/22 11:56 64 17 128/68 95 04/15/22 11:34 98.4 F 60 20 138/79 96 Cardiovascular RRR, no murmur, no edema Respiratory normal respiratory effort, lungs clear to auscultation Pre-Sedation Airway Assessment Smoking Status: Never smoker Hx Sleep Apnea: No Hx Difficult Intubation: No Short, Thick Neck: No Thyromental Distance: > or= 3.5 Finger Breadths Oral Cavity: + Dentures Mallampati Class: III ASA: ASA3 NPO Status Date of Last Intake of Fluids: 04/16/22 Time of Last Intake of Fluids: 06:00 Date of Last Intake of Solid Food: 04/15/22 Time of Last Intake of Solid Foods: 21:00 Procedure Planning Contraindications for Sedation: none Current Medications Reviewed: Yes Notes The planned sedation has been discussed with the patient. Informed Consent was obtained. I have identified the patient, determined the appropriateness of sedation and have assessed the patient immediately prior to the procedure. All medicine(s) and interventions are by my order.
--- NOTE | 2022-04-16 11:16 | Cardiology Consultation ---
Date of Consultation April 16, 2022 Assessment & Plan (1) Dyspnea: 2. CAD--post NSTEMI and PCI with drug-eluting stent placement x2 to RCA 2016 3. Persistent atrial fibrillationpost successful electrical cardioversion 04/11/2022, on Eliquis 4. Hypertension 5. Carotid artery disease 6. 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 Recent thorough cardiac work-up. At this point do not feel his symptoms are primarily cardiac in nature. He has preserved LV function without significant valvular pathology on recent echo. Heart cath today shows largely unchanged branch vessel disease. Had similar disease when he was asymptomatic and would not expect his small vessel disease to cause severe dyspnea that he is experiencing just at rest. He is post cardioversion and no improvement in symptoms with sinus rhythm. On exam no signs of heart failure and left and right-sided filling pressures on right heart cath were low with normal pulmonary artery pressures. Recommend further noncardiac work-up including additional lung imaging. Also question whether his symptoms could be rheumatologic in nature. Previously hospitalized in 2016 with similar symptoms of fatigue, chills, myalgias/arthralgias, vomiting and presyncope. 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 From a cardiac standpoint okay to resume Eliquis later tonight. Continue current aspirin, statin. History of Present Illness Attending Physician: Penelope Lazar MD History of Present Illness Mr. Mejia is a very pleasant 81-year-old man with a history of coronary artery disease post prior PCI with 2 TRA to his RCA in 2017 admitted with worsening shortness of breath. Other medical issues include hypertension, dyslipidemia, moderate coronary artery disease and a history of reported inflammatory arthritis/microscopic polyangiitis previously on steroids. Diagnosed with atrial fibrillation back in 10/2021. Patient has progressively felt unwell all since that time. Underwent repeat ischemic evaluation in 10/2021 with stress test showing inferior infarct with mild kristi-infarct ischemia. Repeat cardiac catheterization that time showed 40% in-stent restenosis of mid RCA stent with severe PDA disease downstream from prior stent. PDA small vessel and medical management recommended. Was seen more recently 2 weeks ago with a host of complaints most notably fatigue, dizziness leg weakness. Was noted that time still to be in rate controlled atrial fibrillation. Repeat echocardiogram Showed moderate concentric LVH, LVEF 55 to 60%, mildly dilated RV with mild dysfunction, diastolic dysfunction with normal estimated PA and RA pressures. Underwent successful electrical cardioversion 4 days ago. Yesterday contacted our office though stating shortness of breath progressively worse with associated chills, worsening fatigue. Stated he feels so unwell does not feel like he can keep living like this. On admission afebrile, not hypoxic chest x-ray suggestive of mild congestion and received 40 of IV Lasix. Viral studies including COVID negative and remainder of labs unremarkable. Minimal hstrop elevation. Has remained chest pain-free. Underwent repeat cardiac catheterization today. Again no significant major epicardial obstructive CAD. FFR of LAD stenosis negative. Has severe branch vessel disease that was largely unchanged from 10/2021 and post PCI 2016. Left and right-sided filling pressures completely normal as well as pulmonary artery pressures. Allergies Allergy/AdvReac Type Severity Reaction Status Date / Time thiopental AdvReac Intermediate YRS Verified 04/15/22 12:51 AGO-HALLUCINATIONS Home Medications Medication Instructions Recorded Confirmed Type aspirin 81 mg tablet,delayed 81 mg PO DAILY #30 tab 09/12/19 04/15/22 Rx release (Adult Low Dose Aspirin) cholecalciferol (vitamin D3) 50 2,000 units PO DAILY cap 04/10/20 04/15/22 History mcg (2,000 unit) capsule atorvastatin 40 mg tablet 40 mg PO DAILY #90 tab 12/17/21 04/15/22 Rx apixaban 5 mg tablet (Eliquis) 5 mg PO BID 04/11/22 04/15/22 History amlodipine 10 mg tablet 10 mg PO DAILY 04/15/22 04/15/22 History Patient History Medical History Afib On Eliquis Arteriosclerotic coronary artery disease S/p NSTEMI and PCI with TRA x 2 to RCA in 2017 ; repeat cardiac cath 10/2021- moderate mid RCA ISR, severe small PDA disease BPH (benign prostatic hyperplasia) Carotid stenosis Left ICA 50 to 69%, followed by Dr. Gerber. 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 Depression Dyslipidemia Esophageal reflux Foot drop Left Foot History of non-ST elevation myocardial infarction (NSTEMI) (02/2017) Pt denies Per records - post NSTEMI and PCI with TRA x 2 to RCA Hypertension Lumbar stenosis Microscopic polyangiitis Per records Multiple pulmonary nodules Prostate cancer (06/2018) S/p XRT 2018 Thrombocytopenia Plts stable at 125 on 04/03/22 labs Surgical History H/O heart artery stent (02/2017) PCI w/ TRA x 2 to RCA FOLLOWS W/ [place] CARDIO LAST VISIT 03/2022 H/O hernia repair H/O knee surgery Bilat 2002 H/O nasal septoplasty (2011) H/O umbilical hernia repair History of back surgery 1959's, s, s, 2017 History of carpal tunnel surgery of left wrist History of carpal tunnel surgery of right wrist History of placement of ear tubes (2011) R ear S/P hip arthroscopy (2005) S/P lumbar laminectomy (12/22/16) Laminectomy L3, L4, L5, foraminotomy, partial facetectomy, decompression of cauda equina S/P rotator cuff repair (2014) R shoulder Family History Father , Passed age 85 of [place] Myocardial infarction Mother , Passed age 86 complications of broken hip No problems noted. Brother No problems noted. Sister No problems noted. Daughter No problems noted. 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 Beliefs That Will Affect Care: None marital status: Current Living Situation: Spouse current occupational status: retired How many Children do You have: 1 Feels Safe at Home: Yes Childhood Exposure to Second-Hand Smoke: No Diet Comment: regular caffeine: Yes (1 cup of coffee/day, 1 soda/day ) during the past year weight has: decreased > 10 lbs Dental Care, Regularly: Yes Physical Activity Frequency: Daily Physical Activity Frequency Comment: walking Seatbelt Use: always Sunscreen Use: No Assistive Devices: None Review of Systems Review of Systems: All systems reviewed & are unremarkable except as noted in HPI & below Physical Exam Physical Exam: General: Uncomfortable, looks ill HEENT: Sclerae anicteric Lungs: Audible wheezes, no crackles Cardiac: Regular rate no murmurs Vascular: 2+ radial Abdomen: Soft, nontender Extremities: Well perfused, no peripheral edema Neuro: Nonfocal Psych: Alert orient x3, normal affect and mood Results & Data ([facility]) Vital Signs (Past 12 Hours) Vital Signs Temp Pulse Pulse Resp BP Pulse Ox 04/16/22 10:27 62 18 98 04/16/22 07:05 61 04/16/22 07:00 97.7 F 56 L 18 150/80 H 95 04/16/22 03:00 97.9 F 60 17 134/75 93 04/15/22 23:22 63 PG Care Time/CCT Total # of Minutes Spent Total Time Spent with Patient: Total time spent is greater than 50% in coordination of care (as documented) at patient's floor/unit and/or counseling patient: Coding Level of Care Code 59041 Inpt Consult Level 4 Diagnoses Dyspnea R06.00
[2022-04-16] MEDS ORDERED: ADENOSINE IV SOLN 3 MG/ML 20 ML VIAL IV ONE (12:05)
[2022-04-16 12:34] LABS: iSTAT Arterial Blood Gas HCO3 24 meg/L (19-24); iSTAT Arterial Blood Gas pCO2 23 mmHg (35-46); iSTAT Arterial Blood Gas pH 7.62 (7.35-7.45); iSTAT Arterial Blood Gas pO2 100 mmHg (80-95); iSTAT Carbon Dioxide 24 mmol/L (24-31)
--- NOTE | 2022-04-16 16:43 | Hospitalist Progress Note ---
Date of Service April 16, 2022 Assessment & Plan (1) Dyspnea: Plan: Dyspnea with exertion and while resting although not hypoxic or tachycardic- ongoing for many months and progressively worsening - PE unlikely as not hypoxic and is anticoagulated with no reported missed doses - Pulmonary congestion suggestive on CXR- 40mg IV Lasix given by EMD - district home economics agent increased and filling pressures neg on LHC and RHC today so not consistent with CHF - 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 RHC no evidence of Pulm HTN Also c/o leg fatigue with walking--> recent ABIs negative by Cardio in the office Not on Beta blockers due to bradycardia I believe and no other meds that could be causing dyspnea -check chest CT without contrast due to elevated district home economics agent 1.5 and cardiac cath dye load today -arrange outpt sleep study-but pt adamantly declines to do so -arrange outpt PULM consult and PFTs -check 2 step prior to discharge in the AM (2) Elevated troponin: Plan: Without chest pain but presents with dyspnea -very mild and peaked at 48 cardiac cath today without new blockages - Continue ASA, statin (3) Macrocytosis without anemia: Plan: check B12 and folate, peripheral smear given pancytopenia (4) Arteriosclerotic coronary artery disease: Plan: Cath 11/05- done here- Chronic multivessel coronary artery disease -40 to 50% mid RCA in-stent restenosis. Small RPDA with 70% proximal stenosis after prior stent, 95% mid stenosis. -50-60% mid LAD, 80% ostial small 2nd diagonal Repeat cath 04/16 unchanged - Did not tolerate BB previously by report- is on amlodpine, asa, statin- continue these (5) Carotid stenosis: Plan: Left ICA 50 to 69%- [place] [facility] [place] duplex this year - no symptoms reported for worsening disease - Continue ASA, Statin (6) Chronic kidney disease, stage 3 (moderate): Plan: [place] baseline- normal 1.3-1.4 Here today 1.5 after receiving IV lasix in ED - Follow in AM, received 500mL NS after cath (7) Hypertension: Plan: Well controlled - as above (8) Prostate cancer: Plan: Not acute- completed radiation - symptoms controlled per patient review (9) Elevated bilirubin: Plan: Likely secondary to hepatic congestion - increased since 03/08 but now improving after receiving IV lasix - follow- normal CT scan of ABd/pel in February Plan: DVT proph-restart Eliquis this evening after cath Dispo-continued stay, dc tomorrow after 2 step in the AM Admission and Anticipated Discharge Date Admission Date: April 15, 2022 Subjective Pt had cardiac cath both LHC and RHC today and as I d/w Cardio-both were normal and/or stable from previous wrt his CAD. Pt reports still very dyspneic with short distances and also feels like his legs stop working when he walks too far. Denies chest pains. Daughter at bedside reports he has been having chills at home but no documented fevers. 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 He is anxious to get home tomorrow Tele with NSR, IVCD, rates 50-60s Review of Systems Review of Systems: All systems reviewed & are unremarkable except as noted in HPI & below Physical Exam Constitutional: WD/WN, vitals as above Eyes: + anicteric sclerae ENMT: external ear and nose normal, oropharynx normal Neck: trachea midline, no thyromegaly normal visual inspection; no s ubmandibular swelling and neck nontender Respiratory: normal respiratory effort, lungs clear to auscultation (except mild bibasilar crackles) Cardiovascular: RRR, no murmur, no edema Chest (Breasts): Chest: normal inspection of chest Gastrointestinal (Abdomen): normal bowel sounds, soft, nontender, no hepatosplenomegaly Musculoskeletal: Extremities: extremities normal to inspection; no cyanosis and no clubbing Skin: no rashes, warm and dry Neurologic: moves all extremities and awake; no focal motor deficits Psychiatric: A+Ox3, euthymic affect Lymphatic: no lymphedema Results & Data Results & Data ([facility]) Vital Signs (Past 12 Hours) Vital Signs Temp Pulse Pulse Resp BP BP BP 04/16/22 16:36 36.7 C 63 17 105/52 L 04/16/22 15:28 65 18 94/54 L 04/16/22 14:47 72 04/16/22 14:38 77 16 98/61 L 04/16/22 14:03 67 17 99/58 L 04/16/22 13:47 67 18 100/53 L 04/16/22 13:32 36.4 C L 70 18 105/68 04/16/22 12:30 68 64 18 121/67 04/16/22 10:27 62 18 04/16/22 07:05 61 04/16/22 07:00 36.5 C 56 L 18 150/80 H Pulse Ox 04/16/22 16:36 92 04/16/22 15:28 96 04/16/22 14:47 04/16/22 14:38 93 04/16/22 14:03 94 04/16/22 13:47 93 04/16/22 13:32 95 04/16/22 12:30 94 04/16/22 10:27 98 04/16/22 07:05 04/16/22 07:00 95 PG Care Time/CCT Total # of Minutes Spent Total Time Spent with Patient: Total time spent is greater than 50% in coordination of care (as documented) at patient's floor/unit and/or counseling patient: Coding Level of Care Code 19397 Subseq Hosp Care Lvl 3 Diagnoses Elevated troponin R77.8 Dyspnea R06.00 Arteriosclerotic coronary artery disease I25.10 Carotid stenosis I65.29 Chronic kidney disease, stage 3 (moderate) N18.3 Hypertension I10 Prostate cancer C61 Elevated bilirubin R17 Macrocytosis without anemia D75.89
[2022-04-16 16:59] LABS: iSTAT Arterial Blood Gas HCO3 25 meg/L (19-24); iSTAT Arterial Blood Gas pCO2 25 mmHg (35-46); iSTAT Arterial Blood Gas pH 7.61 (7.35-7.45); iSTAT Arterial Blood Gas pO2 34 mmHg (80-95); iSTAT Carbon Dioxide 26 mmol/L (24-31)
[2022-04-16 16:59] LABS: iSTAT Arterial Blood Gas HCO3 26 meg/L (19-24); iSTAT Arterial Blood Gas pCO2 29 mmHg (35-46); iSTAT Arterial Blood Gas pH 7.55 (7.35-7.45); iSTAT Arterial Blood Gas pO2 35 mmHg (80-95); iSTAT Carbon Dioxide 27 mmol/L (24-31)
--- NOTE | 2022-04-16 17:15 | Post Anesthesia Assessment ---
Date of Service April 16, 2022 Post Sedation Assessment Vital Signs Temp Pulse Pulse Resp BP BP BP 04/16/22 16:36 98.1 F 63 17 105/52 L 04/16/22 15:28 65 18 94/54 L 04/16/22 14:47 72 04/16/22 14:38 77 16 98/61 L 04/16/22 14:03 67 17 99/58 L 04/16/22 13:47 67 18 100/53 L 04/16/22 13:32 97.5 F L 70 18 105/68 04/16/22 12:30 68 64 18 121/67 04/16/22 10:27 62 18 04/16/22 07:05 61 04/16/22 07:00 97.7 F 56 L 18 150/80 H 04/16/22 03:00 97.9 F 60 17 134/75 04/15/22 23:22 63 04/15/22 23:00 98.6 F 64 22 171/85 H 04/15/22 22:00 59 L 13 139/78 04/15/22 21:18 04/15/22 20:00 63 23 149/92 H 04/15/22 19:00 64 24 04/15/22 18:00 59 L 18 163/89 H 04/15/22 17:57 59 L 26 H 159/98 H 04/15/22 17:30 133/86 Pulse Ox 04/16/22 16:36 92 04/16/22 15:28 96 04/16/22 14:47 04/16/22 14:38 93 04/16/22 14:03 94 04/16/22 13:47 93 04/16/22 13:32 95 04/16/22 12:30 94 04/16/22 10:27 98 04/16/22 07:05 04/16/22 07:00 95 04/16/22 03:00 93 04/15/22 23:22 04/15/22 23:00 95 04/15/22 22:00 93 04/15/22 21:18 94 04/15/22 20:00 91 04/15/22 19:00 94 04/15/22 18:00 93 04/15/22 17:57 97 04/15/22 17:30 99 Recovery Score Activity: Moves 4 extremities Respiration: Deep Breath/Cough Circulation: +/-20% PreAnes Value Consciousness: Fully Awake Oxygen Saturation: O2 needed for >90% Post Anesthesia Score: 2 Discharge Sedation Level of Care: Fast Track Phase II Post Sedation Plan On clinical assessment, the patient appears to have tolerated the sedation without complications. Patient is recovering as anticipated. Patient will continue to be monitored by nursing and may be discharged when sedation discharge criteria are met per below protocol. Upon Completions of procedure up to 15 minutes continue every 5 minute vital signs and the P.A.R. score; then discharge to a Phase I or Fast Track to Phase II per the following guidelines: * Discharge Patient to appropriate Phase II area if PAR is 8 or greater or return to pre- procedure baseline. The post - procedure orders will be as directed. * If PAR score is less than 8 or not return to pre-procedure baseline then patient will follow Phase I monitoring till PAR is reached for Phase II. The Phase I may be done in procedure room or may call to secure a Phase I area. * If naloxone or flumazenil are used for reversal, hold in Phase I for continued monitoring from when last reversal dose was given for a minimum of 60 minutes or longer pending the nurse and/or physician discretion of patient condition before discharge to Phase II. Please call the Sedation Physician to re-evaluate and complete post-note for discharge to Phase II area. Do NOT discharge from procedure sedation or Phase 1 until post- sedation evaluation note is complete by procedure /sedation MD Sedation Discharge Instructions to be given to the patient at discharge to home.
--- NOTE | 2022-04-16 17:19 | Post Operative Brief Note ---
Cardiology Brief Post Op Date of Surgery April 16, 2022 Pre & Post Diagnosis Operation Date: 04/16/22 10:00 <No data on this case meets the specified criteria> Procedure Cardiac cath Ambulatory Nurse Delmer Sarkar MD Commercial Collections Driver Showers Estimated Blood Loss 15 Findings See Below Mid LAD 55%. Small D2 80% ostial/proximal disease Mid RCA stent, distal RCA stents patient. Proximal PDA 70%, mid PDA 95% FFR of mid LAD negative Stable coronary disease unchanged from 10/2021 and post PCI 2016. Normal right and left-sided filling pressures. Normal pulmonary pressures. Normal cardiac output Anesthesia Type RN Sedation Complications none Disposition Accompanied Patient To Recovery: No Disposition: PCU Overlapping Procedure I was present for: the critical portions of procedure. I was immediately available: during the entire case. Back up surgeon: was not required during procedure.
--- NOTE | 2022-04-16 17:46 | CT Scan Report ---
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 A dose lowering techni que was utilized adhering to the principles of ALARA. COMPARISON: Chest CTA 02/24/2017. FINDINGS: No pneumothorax. Trace right pleural effusion. Mild diffuse bronchial wall thickening. Stab le 3 mm subpleural nodule within the lingula on image 177. There are few additional scattered 1-2 mm nodules seen within the lungs. This is most pronounced within the right upper lobe. These remain stab le and are therefore considered to be benign. No new or suspicious pulmonary nodules identified. Ther e is mild chronic interstitial thickening. Mild bilateral upper lobe perihilar groundglass airspace o pacities most pronounced on the right. This is new from the prior study and could represent an atypic al/viral pneumonia or mild congestive change. Bibasilar linear densities favor subsegmental atelectas is. No fractures within the visualized osseous structures. The visualized liver and spleen are unrema rkable. Normal esophagus. A few partially calcified mediastinal lymph nodes. No lymphadenopathy ident ified within the chest. Normal caliber thoracic aorta. The heart is borderline enlarged. No pericardi al effusion. Moderate to severe calcified plaque within the coronary arteries. The main pulmonary art az is borderline dilated at 3.2 cm. IMPRESSION: 1. Mild bilateral upper lobe perihilar groundglass airspace opacities most pronounced on the right. T his is new from the prior study and could represent an atypical/viral pneumonia or mild congestive ch luis. 2. Trace right pleural effusion. 3. Borderline cardiomegaly with mild pulmonary arterial hypertension. 4. Additional findings as described above. ACT 112: Negative or not required by law. Electronically signed by: Angus Gtz M.D. 04/16/2022 5:43 PM
[2022-04-16] MEDS: APIXABAN 5 MG TABLET PO SCH (20:06)
--- NOTE | 2022-04-16 23:52 | Cardiac Catheterization ---
[facility] Data: Audio Visual Equipment Rental Clerk Cardiac Status Clinical evaluation leading to the procedure CAD Presenation: Stable angina Anginal Classification: CCS IV Diagnostic Physicians Name: Delmer Sarkar MD Closure Device Recommendations: Medical Therapy and/or Counseling Cardiac Cath Procedure Full Procedure Date April 16, 2022 Pre-Procedure Diagnosis Pre-Procedure Diagnosis: Angina and CAD AUC Score AUC Score: 7 Post-Procedure Diagnosis Post-Procedure Diagnosis: Severe CAD and Normal Intracardiac Pressures Procedure(s) Performed Procedure(s) Performed: Coronary Angiography, Left Heart Cath, Right Heart Cath and Ultrasound Guided Vascular Access Paint Dipper Delmer Sarkar MD Medical Lab Specialist(s) Showers Estimated Blood Loss Estimated Blood Loss: 20 Medication(s) Medication(s): Fentanyl, Heparin, Lidocaine 1%, Nicardipine, Nitroglycerin and Versed Summary of Findings Indication: History of coronary artery disease post TRA x2 to RCA in 2017. Worsening dyspnea at rest, with exertion. Minimally elevated troponin. Access: 6 Fr right ulnar artery under ultrasound guidance Catheters: [place], EBU 3.5 guide, 6Fr swan Findings: LM -Normal caliber, Luminal irregularities LAD - Moderate caliber vessel. Mid LAD with 50-60% stenosis prior to take-off of 2nd diagonal. 2nd diagonal small to medium vessel, 80% ostial, mid stenosis. Circumflex -medium caliber, luminal irregularities. Moderate caliber OM2 is terminal branch with only luminal irregularities RCA - Dominant, 40% earlymid in-stent restenosis, 40% distal RCA stenosis, distal RCA stent into PDA widely patent. 70% stenosis proximal PDA just after prior stent, 95% mid stenosis. Small R-PAV branch with 60% ostial/proximal disease RA 1 RV 23/1 PA 19/1 (7) PAWP 3 LVEDP 9 PaSat 77% AoSat 99% Mg CO/CI 5.1/2.7 FFR procedure of LAD -Left main cannulated with EBU 3.5 guide -BMW wire placed into distal LAD -ACIST Catheter placed across stenosis -Pd/Pa 0.92 -FFR 0.89 -Coronary angiography revealed no apparent complications post wire/catheter removal Arterial Closure: TR band Summary: 1. Chronic stable multivessel coronary artery disease -50-60% mid LAD (FFR negative 0.89). 80% ostial/mid small D2 -40% mid RCA in-stent restenosis. Small RPDA with 70% proximal stenosis after prior stent, 95% mid stenosis. 2. Normal left and right-sided filling pressures 3. Normal pulmonary artery pressures 4. Preserved cardiac output Recommendations: No significant obstructive major epicardial vessel disease. Does have severe branch vessel disease but this is largely unchanged from 2020 and post PCI in 2017 when he was largely asymptomatic. Do not feel his residual coronary di sease is responsible for his current dyspnea at rest and exertion. Continue current medical management for stable CAD Additional evaluation for noncardiac causes of shortness of breath. Hemodynamics Rest Ao:: 163/62/105 Final Ao: 160/66/106 LV: 162/9 Recommendations Recommendations: Medical Therapy and/or Counseling Specimens Specimens: None Radiation Exposure (mGy) 1032 Contrast (mls) 70 Anesthesia Moderate [id number] Procedural Complication(s) None Disposition PCU I attest to the content of the Intraoperative Record and any orders documented therein. Any exceptions are noted below. [facility] Card Cath Procedure Codes Cardiac Catheterization Procedure 1: Cardiovascular Cath Procedures: 87729 Coronaries & LHC (+/-LV) & RHC Procedure 2: Cardiovascular Cath Procedures: 27596 (Doppler) Pressure Wire Therapeutic Services & Ancillary Proc Procedure 1: Cardiovascular Tx and Anc Procedures: 16231 Ultrasonic Guidance Vascular Access Moderate Sedation Procedure 1: Sedation/Anesthesia: 34671 Mod Sedation by the same physician;Init15 Min Child Age 5 & Up Procedure 2: Sedation/Anesthesia: 11047 Mod Sedation by the same physician; Ea [id number] Minutes PG Care Time/CCT Total # of Minutes Spent Total Time Spent with Patient: Total time spent is greater than 50% in coordination of care (as documented) at patient's floor/unit and/or counseling patient:
[2022-04-17 06:52] LABS: Basophils # (auto) 0.01 K/uL (0-0.2); Basophils % (auto) 0.3 %; Eosinophils # (auto) 0.18 K/uL (0-0.5); Eosinophils % (auto) 4.8 %; Hematocrit (blood only) 40.4 % (42-52); Hemoglobin 13.5 g/dL (14.0-18.0); Immature Granulocytes # (auto) 0.02 K/uL (0.00-0.02); Immature Granulocytes % (auto) 0.5 %; Lymphocytes # (auto) 0.63 K/uL (1.2-3.4); Lymphocytes % (auto) 16.8 %; Mean Corpuscular Hemoglobin 33.3 pg (25-34); Mean Corpuscular Hgb Conc 33.4 g/dL (32-36); Mean Corpuscular Volume 99.5 fL (80-100); Mean Platelet Volume 10.4 fL (7.4-10.4); Monocytes # (auto) 0.47 K/uL (0.11-0.59); Monocytes % (auto) 12.5 %; Neutrophils # (auto) 2.44 K/uL (1.4-6.5); Neutrophils % (auto) 65.1 %; Platelet Count 129 K/uL (130-400); RDW Coefficient of Variation 13.5 % (11.5-14.5); RDW Standard Deviation 48.9 fL (36.4-46.3); Red Blood Count 4.06 M/uL (4.7-6.1); White Blood Count 3.75 K/uL (4.8-10.8)
[2022-04-17 07:16] LABS: Albumin Level 3.5 gm/dl (3.4-5.0); BUN Creatinine Ratio 21.2 (10-20); Bilirubin Direct 0.3 mg/dl (0-0.2); Bilirubin,Total 1.5 mg/dl (0.2-1.0); Calcium 8.7 mg/dl (8.5-10.1); Est GFR (African American) 52.3 ml/min; Est GFR (Non-African American) 45.1 ml/min; Magnesium 2.1 mg/dl (1.7-2.4)
[2022-04-17 07:24] LABS: RBC Morphology Unremarkable
[2022-04-17] MEDS: APIXABAN 5 MG TABLET PO SCH (07:56)
[2022-04-17] MEDS: ASPIRIN 81 MG ECTAB PO SCH (07:56)
[2022-04-17] MEDS: ATORVASTATIN 40 MG TAB PO SCH (07:56)
[2022-04-17 10:07] LABS: Folate (Folic Acid) 13.87 ng/ml (>5.38)
[2022-04-17] MEDS ORDERED: CYANOCOBALAMIN 1000 MCG/ML VIAL IM ONE (10:45)
--- NOTE | 2022-04-17 11:27 | Discharge Summary ---
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 Patient has been having dyspnea and inability to catch his breath that has been getting progressively worse over the past month. He follows with cardiology- at that time it was felt this may be related to his atrial fibrillation and the patient was cardioverted 04/11/22, he remains in NSR to sinus junior. His symptoms did not improve, he was referred to the EMD for plans to perform cardiac catheterization tomorrow. The patient states that he can go up 13 steps at home from his basement, but is extremely tired at the top and has to take a break. He is not hypoxic and is not tachycardic. In the EMD the patient had routine labs performed to include HScTNI, CXR, ECG. He was given 40mg of IV Lasix. His CXR was noted as pulmonary congestion, coarsening of interstitium, normal volumes without effusion or pthx. His HScTNI was 48.5. His most recent ECHO was in 04/09/22 with EF 55-60% mild MR, no wall motion abnormalities, but notable for biatrial enlargement and reduced RV function. His ECG reveals NSR with PVS and RBB- his RBB is present post cardioversion and prior. He denies any chest pain or palpitations even while dyspneic. He does not endorse any swelling in his legs, cough, fevers or chills. COVID/FLU/RSV test on admission is: NEGATIVE Discharge Exam Constitutional WD/WN, vitals as above Eyes PERRL, conjunctivae normal, anicteric sclerae + anicteric sclerae ENMT external ear and nose normal, oropharynx normal Neck trachea midline, no thyromegaly normal visual inspection; no submandibular swelling and neck nontender Respiratory normal respiratory effort, lungs clear to auscultation (except mild bibasilar crackles) Cardiovascular RRR, no murmur, no edema Chest (Breasts) Chest: normal inspection of chest Gastrointestinal (Abdomen) normal bowel sounds, soft, nontender, no hepatosplenomegaly Musculoskeletal Extremities: extremities normal to inspection; no cyanosis and no clubbing Skin no rashes, warm and dry Neurologic moves all extremities and awake; no focal motor deficits Psychiatric A+Ox3, euthymic affect Lymphatic no lymphedema Discharge Data Allergies Allergy/AdvReac Type Severity Reaction Status Date / Time thiopental AdvReac Intermediate YRS Verified 04/15/22 12:51 AGO-HALLUCINATIONS Consultations 04/15/22 13:42 ED Decision to Admit Stat 04/15/22 19:01 Consult Cardiology Routine Procedures Performed Operation Date: 04/16/22 10:00 Actual Procedures s Cineradiography w/Routine Exam - Umang Sarkar MD p Cath, Right and Left Heart - Umang Sarkar MD s Fraction Flow [place] SGL Ves - Umang Sarkar MD s Ultrasound Vascular Access - Umang Sarkar MD Ordered Studies 04/16/22 07:43 CL Cath Imgs for PACS use only Routine CL Cath Imgs for PACS use only Routine 04/16/22 12:55 CT chest diagnostic wo con Routine Hospital Course (1) Dyspnea: Dyspnea with exertion and while resting although not hypoxic or tachycardic-ongoing for many months and progressively worsening - PE unlikely as not hypoxic and is anticoagulated with no reported missed doses - Pulmonary congestion suggestive on CXR- 40mg IV Lasix given by EMD - soda fountain manager increased and filling pressures neg on LHC and RHC today so not consistent with CHF - 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 RHC no evidence of Pulm HTN Also c/o leg fatigue with walking--> recent ABIs negative by Cardio in the office Not on Beta blockers due to bradycardia I believe and no other meds that could be causing dyspnea -check chest CT without contrast due to elevated soda fountain manager 1.5 and cardiac cath dye load today Noted prior to discharge that he is prescribed amlodipine but he does not know if he takes it or not. He has not been getting it here and now states he feels thebest he has in months. Not sure if because of absence of amlodipine and the one time dose of lasix he received? Also, perhaps he is receiving a different generic atorvastatin here-he thinks that could be the issue also. COuld consider a trial off atorvastatin and replace with Crestor if symptoms don't resolve with the weakness in his legs with walking. -check CK -arrange outpt sleep study-but pt adamantly declines to do so -arrange outpt PULM consult and PFTs -check 2 step prior to discharge in the AM (2) Elevated troponin: Without chest pain but presents with dyspnea -very mild and peaked at 48 cardiac cath today without new blockages - Continue ASA, statin (3) Macrocytosis without anemia: check B12 and folate, peripheral smear given pancytopenia (4) Arteriosclerotic coronary artery disease: Cath 11/05- done here- Chronic multivessel coronary artery disease -40 to 50% mid RCA in-stent restenosis. Small RPDA with 70% proximal stenosis after prior stent, 95% mid stenosis. 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- normal 1.3-1.4 Here today 1.5 after receiving IV lasix in ED - Follow in AM, received 500mL NS after cath (7) Hypertension: Well controlled - as above (8) Prostate cancer: Not acute- completed radiation - symptoms controlled per patient review (9) Elevated bilirubin: Likely secondary to hepatic congestion - increased since 03/08 but now improving after receiving IV lasix - follow- normal CT scan of ABd/pel in February (10) B12 deficiency: DVT proph-restart Eliquis this evening after cath Dispo-continued stay, dc tomorrow after 2 step in the AM Discharge Plan Discharge Items Patient Disposition: Home - Self-Care Reason For Visit: DYSPNEA Discharge Diagnosis: Shortness of breath Condition on Discharge: Good Activity: Resume your previous activity Non-emergency contact: Primary Care Provider, [employer] Systems Supervisor and Compliance Testing Analyst Call non-emergency contact if: you have any medication questions and your symptoms worsen Follow-up/Referrals: Amandeep Seo CRNP [Primary Care Provider] - (Follow up within 1-2 weeks) Sondra Gonzalez MD [Physician] - (A referral has been sent to [facility] on your behalf, for outpatient follow up. This office will contact you with appointment information. If you do not hear from them within one week of discharge, please contact them at the phone number listed above.) Diet: Heart Healthy Addtl Attending Provider Instructions: You were admitted with progressively worsening shortness of breath and had a workup of your heart which was found to be stable from previous as far as your heart disease. You had a CT scan of your chest which showed some very mild ground glass opacities in the upper lobes and a small amount of fluid at the base around the right lung. This could be from some slight fluid in the lungs and you were given a diuretic. Fortunately you were feeling very well by the time you left the hospital. It was noted that some of your medications you're taking at home may not be accurate. Please review all of your pills very closely when you go home and ensure that you are only taking what will be listed on your discharge paperwork. Also, you were found to have a low vitamin B12 level and you received an injection of B12 here. Please continue taking Vitamin B12 1000 mcg by mouth once daily once you go home. Arrangements have been made for a referral to see a Compliance Testing Analyst (specialist of the lungs) for after discharge to see if you have a lung problem causing your shortness of breath. Pending Studies at Discharge: Yes (Peripheral smear of the blood) Stand-Alone Forms: [facility] Medications and DC Order Prescriptions: New cyanocobalamin (vitamin B-12) 1,000 mcg capsule 1,000 mcg PO DAILY Qty: 30 RF: 0 Continued cholecalciferol (vitamin D3) 50 mcg (2,000 unit) capsule 2,000 units PO DAILY RF: 0 atorvastatin 40 mg tablet 40 mg PO DAILY Qty: 90 RF: 3 aspirin [Adult Low Dose Aspirin] 81 mg tablet,delayed release (DR/EC) 81 mg PO DAILY Qty: 30 RF: 2 Hold Instructions: Home Medication placed on hold at Doctor's office Eliquis 5 mg Tablet 5 mg PO BID RF: 0 Discontinued amlodipine 10 mg tablet 10 mg PO DAILY RF: 0 Discharge Orders: Discharge Order (Routine); Ordered 04/17/22 Ordered By: Penelope Lazar Admission Data Admit Date/Time: 04/15/22 13:59 Attending Provider: Penelope Lazar Admit Provider: Penelope Lazar Primary Care Provider: Amandeep Seo Other Providers: Ramez Hair ; Umang Sarkar Coding Diagnoses Dyspnea R06.00 Elevated troponin R77.8 Macrocytosis without anemia D75.89 Arteriosclerotic coronary artery disease I25.10 Carotid stenosis I65.29 Chronic kidney disease, stage 3 (moderate) N18.3 Hypertension I10 Prostate cancer C61 Elevated bilirubin R17 B12 deficiency E53.8
--- NOTE | 2022-04-17 13:37 | Electrocardiogram Report ---
Test Reason : Blood Pressure : / mmHG Vent. Rate : 062 BPM Atrial Rate : 062 BPM P-R Int : 178 ms QRS Dur : 142 ms QT Int : 482 ms P-R-T Axes : -20 -73 -26 degrees QTc Int : 489 ms Normal sinus rhythm Right bundle branch block Left anterior fascicular block Abnormal ECG When compared with ECG of 15-APR-2022 11:39, Premature ventricular complexes are no longer Present Confirmed by Marcel De Leon ([id number]) on 04/17/2022 1:37:28 PM Referred By: Amandeep Seo Confirmed By:Marcel De Leon
--- NOTE | 2022-04-17 14:26 | Electrocardiogram Report ---
Test Reason : Blood Pressure : / mmHG Vent. Rate : 058 BPM Atrial Rate : 058 BPM P-R Int : 184 ms QRS Dur : 140 ms QT Int : 506 ms P-R-T Axes : -09 -75 -20 degrees QTc Int : 496 ms Sinus bradycardia Right bundle branch block Left anterior fascicular block Possible Old Septal infarct (cited on or before 16-APR-2022) Abnormal ECG When compared with ECG of 17-APR-2022 05:45, No significant change was found Confirmed by Marcel De Leon ([id number]) on 04/17/2022 2:26:27 PM Referred By: Amandeep Seo Confirmed By:Marcel De Leon
[2022-04-17 16:09] VITALS: BP 133/90; PULSE 92; TEMP 98.2; O2SAT 92
[2022-04-18] MEDS ORDERED: CYANOCOBALAMIN (B-12) 500 MCG TABLET PO SCH (09:00)
== END 2022-04-17 14:00 | disposition home or self-care (01) | DRG 204 ==
LOC: ED 11:16 → EDINP 13:59 → 2S 22:56

== ENCOUNTER 2023-06-03 12:16 | Inpatient (IN) ==
--- NOTE | 2023-06-03 12:50 | Emergency Department Note ---
Impression & Plan SOB (shortness of breath), Exertional dyspnea, Elevated troponin, Thrombocytopenia, CHF (congestive heart failure) ED Provider Note NAME: OH BRYANT AGE: 82 SEX: M : 1940 ARRIVES VIA: Walk-In INFORMANT: [Patient][family] ED PROVIDER(S): [Rocael Nunez MD] CHIEF COMPLAINT: Short of breath HISTORY OF PRESENT ILLNESS: The patient is an 82-year-old male who has had increasing shortness of breath over the last several months. He has escalated to the point where he cannot walk too far without having to stop and catch his breath. His cough is productive of only clear sputum. He has not had fever. No chest pain. No leg swelling. No vomiting or diarrhea. The patient does have a history of A-fib, he was on Xarelto but had some bleeding issues and is no longer on Xarelto. He takes aspirin. The patient states that he was told once that he had silicone in his lung, he was also told that he may have black lung although neither was ever truly confirmed. The patient was at his doctor's office today. He was given a nebulizer but then felt worse after. There were some concerns for some changes on his ECG. He was sent here for evaluation. There is concern for PE. PMHx/PSHx: See Below SOCIAL HISTORY: See Below. PHYSICAL EXAM: GENERAL: Patient is in no acute distress. HEENT: No acute trauma, normocephalic atraumatic, mucous membranes moist, no nasal congestion. NECK: No stridor, no adenopathy, no meningismus, trachea is midline. LUNGS: A few scattered crackles heard, primarily on the right. No wheezing, no respiratory distress. HEART: 2/6 systolic murmur heard best at the left sternal border, no tachycardia, normal rhythm. ABDOMEN: Soft, nontender, bowel sounds positive, no peritonitis. EXTREMITIES: No cyanosis or edema, full range of motion of all the joints without pain or difficulty, no signs for acute trauma. NEUROLOGIC: Oriented x 3, no acute motor or sensory deficits, no focal weakness. SKIN: No rash, no jaundice, no diaphoresis. DIFFERENTIAL DIAGNOSIS: Black lung, restrictive lung disease, COPD, patient PE, pneumonia, bronchitis, anemia, cardiac ischemia, among others. EMERGENCY DEPARTMENT COURSE/PROCEDURES: Prior/Outside records reviewed: Recent family practice note. ECG per my interpretation: Indication was shortness of breath. The ECG shows a sinus bradycardia with a PAC. The rate is 59. There is a right bundle branch block. No ST elevation. A potential old septal infarct was seen. The QTc was 467. Compared to an ECG from 15 September 2022, I see no significant change. Continuous Cardiac Monitoring per my interpretation: An order was placed for continuous cardiac monitoring. The monitor shows a rate of 57 with sinus bradycardia. MEDICAL DECISION MAKING: There is no leukocytosis or concerning anemia. Platelet count somewhat low, this has been seen at times before when looking back at previous testing. No coagulopathy. There was a slight elevation to the creatinine, the patient does have a history of renal insufficiency. No electrolyte abnormality in need of emergent correction. No concerning liver enzyme elevation. BNP was elevated consistent with possible fluid overload. His BNP has been elevated in the past. Chest film per my review shows some potential CHF versus chronic parenchymal change. I see no pneumonia or pneumothorax. Babesia and anaplasmosis smears were negative, the send out testing is pending. Lyme disease testing returned negative. COVID testing returned negative. ECG showed a sinus bradycardia, no acute ischemia. Cardiac enzyme testing x1 is slightly elevated, this has been documented before. This slight troponin elevation could indicate cardiac ischemia or potentially could be consistent with mismatch. Chest CT does not show PE, some mild CHF was noted. On exam, the patient was not hypoxic. He did have a few crackles heard on his lung exam. There was no pedal edema. He was not febrile. The patient received IV Lasix, 40 mg. Repeat troponin testing was ordered and is pending. The patient presents with increasing dyspnea, primarily dyspnea on exertion. He has some lung disease at baseline. He was sent by his doctors office because of some difficulty with his breathing while at the office. On work-up, he appears to be somewhat fluid overloaded. I do think a hospital stay would be warranted. The patient requires further cardiac work-up, troponin trending, diuresis. He may benefit from a pulmonology consult. I did speak with the patient and his family, I spoke with case management. The on-call hospitalist was consulted. DISPOSITION: Patient's presentation and findings warrant a hospital stay. Past Med/Surg History Medical History Afib No longer on Eliquis due to bleeding. Arteriosclerotic coronary artery disease S/p NSTEMI and PCI with TRA x 2 to RCA in 2016 ; repeat cardiac cath 10/2021- moderate mid RCA ISR, severe small PDA disease B12 deficiency Bilateral cataracts BPH (benign prostatic hyperplasia) Carotid stenosis Left ICA 50 to 69%, followed by Dr. Gerber. 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 Depression Dyslipidemia Esophageal reflux Foot drop Left Foot History of non-ST elevation myocardial infarction (NSTEMI) (02/2017) Pt denies Per records - post NSTEMI and PCI with TRA x 2 to RCA Hypertension Lumbar stenosis Macrocytosis without anemia Microscopic polyangiitis Per records Multiple pulmonary nodules Prostate cancer (06/2018) S/p XRT 2018 Thrombocytopenia Plts stable at 125 on 04/03/22 labs Surgical History H/O heart artery stent (02/2017) H/O hernia repair H/O knee surgery H/O nasal septoplasty (2011) H/O umbilical hernia repair History of back surgery History of carpal tunnel surgery of left wrist History of carpal tunnel surgery of right wrist History of placement of ear tubes (2011) S/P hip arthroscopy (2005) S/P lumbar laminectomy (12/22/16) S/P rotator cuff repair (2014) Family History Father Myocardial infarction Mother No problems noted. Brother No problems noted. Sister No problems noted. Daughter No problems noted. Denies family history of Ovarian cancer Prostate cancer Breast cancer Lung cancer Colorectal cancer Social History Smoking Status: Never smoker Tobacco Type: Smokeless Tobacco (Dip or Chew) Age Started Using Tobacco: 50; Second Hand Exposure: No; Do You Dip or Chew Tobacco: No (quit 8 months ago); Hx Alcohol Use: Yes Alcohol type: hard liquor Alcohol Intake Frequency: Monthly or Less Hx Substance Use: No Preferred Language: Thai Communication Ability: Effective Visual Impairment: Partially Limited Hearing Ability: Hard of Hearing Postdoctoral Scholar Required: No Beliefs That Will Affect Care: None marital status: Current Living Situation: Spouse current occupational status: retired How many Children do You have: 1 Feels Safe at Home: Yes Childhood Exposure to Second-Hand Smoke: No Diet: regular Diet Comment: regular caffeine: Yes (1 cup of coffee/day, 1 soda/day ) during the past year weight has: decreased > 10 lbs Dental Care, Regularly: Yes Physical Activity Frequency: Daily Physical Activity Frequency Comment: walking Seatbelt Use: always Sunscreen Use: No Assistive Devices: None Allergies Allergies Allergy/AdvReac Type Severity Reaction Status Date / Time thiopental AdvReac Intermediate YRS Verified 06/03/23 09:47 AGO-HALLUCINATIONS Home Meds Home Medications Medication Instructions Recorded Confirmed multivitamin 1 tab PO DAILY 03/11/23 06/03/23 Previous Rx's Medication Instructions Recorded aspirin 81 mg tablet,delayed 81 mg PO DAILY #30 tabs 09/12/19 release (Adult Low Dose Aspirin) cyanocobalamin (vitamin B-12) 1,000 mcg PO DAILY #30 caps 04/17/22 1,000 mcg capsule Incentive Spirometer #1 ea 05/29/22 atorvastatin 40 mg tablet 40 mg PO DAILY #90 tabs 12/23/22 Results & Data (ED) Vital Signs Vital Signs - 24 hr 06/03/23 12:21 06/03/23 12:43 06/03/23 12:43 Temperature 36.5 C Temperature Source Temporal Artery Scan Pulse Rate 68 Pulse Rhythm Respiratory Rate 18 24 Respiratory Effort / Characteristics Non-Labored Spontaneous Spontaneous Respiratory Depth Normal Normal Respiratory Pattern Regular Blood Pressure 131/72 Blood Pressure [Right Arm] 148/77 H Blood Pressure Mean 91 Blood Pressure Mean [Right Arm] 100 Pulse Oximetry 98 95 Oxygen Delivery Method Room Air Room Air Sepsis Recent Fever Within 48 Hours No Sepsis New/Unexplained Change in Mental Status No Sepsis Action Taken by Nursing No Action Required 06/03/23 12:43 06/03/23 13:17 06/03/23 13:17 Temperature Temperature Source Pulse Rate 57 L Pulse Rhythm Irregular Respiratory Rate 16 Respiratory Effort / Characteristics Respiratory Depth Respiratory Pattern Blood Pressure Blood Pressure [Right Arm] Blood Pressure Mean Blood Pressure Mean [Right Arm] Pulse Oximetry 99 95 95 Oxygen Delivery Method Room Air Room Air Room Air Sepsis Recent Fever Within 48 Hours Sepsis New/Unexplained Change in Mental Status Sepsis Action Taken by [facility] Medications Current Medication List: was personally reviewed by al Laboratory Data Attestation: I reviewed the patient's lab results. 06/03/23 13:05 06/03/23 13:05 Lab Results 06/03/23 06/03/23 06/03/23 Range/Units 13:05 13:05 13:05 WBC 4.27 L (4.8-10.8) K/ul RBC 4.44 L (4.70-6.10) M/uL Hgb 14.8 (14.0-18.0) g/dl Hct 43.5 (42.0-52.0) % MCV 98.0 (80.0-100.0) fL MCH 33.3 (25.0-34.0) pg MCHC 34.0 (32.0-36.0) g/dL RDW Std Deviation 47.5 H (36.4-46.3) fL RDW Coeff of Mayur 13.2 (11.5-14.5) % Plt Count 105 L (130-400) K/uL MPV 10.7 (9.4-12.4) fL Immature Gran % (Auto) 0.7 % Neut % (Auto) 72.2 % Lymph % (Auto) 15.9 % [place] % (Auto) 8.4 % Eos % (Auto) 2.3 % Baso % (Auto) 0.5 % Neut # (Auto) 3.08 (1.40-6.50) K/uL Lymph # (Auto) 0.68 L (1.2-3.4) K/uL [place] # (Auto) 0.36 (0.11-0.59) K/uL Eos # (Auto) 0.10 (0-0.50) K/uL Baso # (Auto) 0.02 (0-0.2) K/uL Immature Gran # (Auto) 0.03 (0.01-0.20) K/uL RBC Morphology Unremarkable PT 11.7 (9.0-12.0) Seconds INR 1.1 (0.9-1.1) APTT 27.1 (21.0-31.0) Seconds PTT Ratio 1.0 Sodium 142 (136-145) mmol/L Potassium 3.7 (3.5-5.1) mmol/L Chloride 108 H (98-107) mmol/L Carbon Dioxide 27 (21-32) mmol/L Anion Gap 7 (3-11) BUN 26 H (6-23) mg/dl Creatinine 1.48 H (0.6-1.4) mg/dl Est Cr Clr Drug Dosing 38.9 ml/min Est GFR ( Amer) 51.1 ml/min Est GFR (Non-Af Amer) 44.1 ml/min BUN/Creatinine Ratio 17.6 (10-20) Glucose 161 H (70-99(Fasting)) mg/dl Calcium 9.0 (8.6-10.3) mg/dl Magnesium 2.1 (1.7-2.4) mg/dl Total Bilirubin 0.9 (0.2-1.0) mg/dl AST 17 (13-39) U/L ALT 15 (7-52) U/L Alkaline Phosphatase 76 (34-104) U/L Troponin I High Sens 43.1 H (0-20) pg/ml B-Natriuretic Peptide (0-100) pg/ml Total Protein 6.4 (6.0-8.3) gm/dl Albumin 4.0 (3.4-5.0) gm/dl Globulin 2.4 L (2.5-4.0) gm/dl Albumin/Globulin Ratio 1.7 (0.9-2) Anaplasma Smear See Comment Babesia Smear See Comment Lyme Disease IgG Ab (Negative) Lyme Disease IgM Ab (Negative) SARS-CoV-2, RNA, NAAT (NEGATIVE) 06/03/23 06/03/23 06/03/23 Range/Units 13:05 13:05 13:05 WBC (4.8-10.8) K/ul RBC (4.70-6.10) M/uL Hgb (14.0-18.0) g/dl Hct (42.0-52.0) % MCV (80.0-100.0) fL MCH (25.0-34.0) pg MCHC (32.0-36.0) g/dL RDW Std Deviation (36.4-46.3) fL RDW Coeff of Mayur (11.5-14.5) % Plt Count (130-400) K/uL MPV (9.4-12.4) fL Immature Gran % (Auto) % Neut % (Auto) % Lymph % (Auto) % [place] % (Auto) % Eos % (Auto) % Baso % (Auto) % Neut # (Auto) (1.40-6.50) K/uL Lymph # (Auto) (1.2-3.4) K/uL [place] # (Auto) (0.11-0.59) K/uL Eos # (Auto) (0-0.50) K/uL Baso # (Auto) (0-0.2) K/uL Immature Gran # (Auto) (0.01-0.20) K/uL RBC Morphology PT (9.0-12.0) Seconds INR (0.9-1.1) APTT (21.0-31.0) Seconds PTT Ratio Sodium (136-145) mmol/L Potassium (3.5-5.1) mmol/L Chloride (98-107) mmol/L Carbon Dioxide (21-32) mmol/L Anion Gap (3-11) BUN (6-23) mg/dl Creatinine (0.6-1.4) mg/dl Est Cr Clr Drug Dosing ml/min Est GFR ( Amer) ml/min Est GFR (Non-Af Amer) ml/min BUN/Creatinine Ratio (10-20) Glucose (70-99(Fasting)) mg/dl Calcium (8.6-10.3) mg/dl Magnesium (1.7-2.4) mg/dl Total Bilirubin (0.2-1.0) mg/dl AST (13-39) U/L ALT (7-52) U/L Alkaline Phosphatase (34-104) U/L Troponin I High Sens (0-20) pg/ml B-Natriuretic Peptide 218 H (0-100) pg/ml Total Protein (6.0-8.3) gm/dl Albumin (3.4-5.0) gm/dl Globulin (2.5-4.0) gm/dl Albumin/Globulin Ratio (0.9-2) Anaplasma Smear Cancelled Babesia Smear Cancelled Lyme Disease IgG Ab Negative (Negative) Lyme Disease IgM Ab Negative (Negative) SARS-CoV-2, RNA, NAAT (NEGATIVE) 06/03/23 Range/Units 13:28 WBC (4.8-10.8) K/ul RBC (4.70-6.10) M/uL Hgb (14.0-18.0) g/dl Hct (42.0-52.0) % MCV (80.0-100.0) fL MCH (25.0-34.0) pg MCHC (32.0-36.0) g/dL RDW Std Deviation (36.4-46.3) fL RDW Coeff of Mayur (11.5-14.5) % Plt Count (130-400) K/uL MPV (9.4-12.4) fL Immature Gran % (Auto) % Neut % (Auto) % Lymph % (Auto) % [place] % (Auto) % Eos % (Auto) % Baso % (Auto) % Neut # (Auto) (1.40-6.50) K/uL Lymph # (Auto) (1.2-3.4) K/uL [place] # (Auto) (0.11-0.59) K/uL Eos # (Auto) (0-0.50) K/uL Baso # (Auto) (0-0.2) K/uL Immature Gran # (Auto) (0.01-0.20) K/uL RBC Morphology PT (9.0-12.0) Seconds INR (0.9-1.1) APTT (21.0-31.0) Seconds PTT Ratio Sodium (136-145) mmol/L Potassium (3.5-5.1) mmol/L Chloride (98-107) mmol/L Carbon Dioxide (21-32) mmol/L Anion Gap (3-11) BUN (6-23) mg/dl Creatinine (0.6-1.4) mg/dl Est Cr Clr Drug Dosing ml/min Est GFR ( Amer) ml/min Est GFR (Non-Af Amer) ml/min BUN/Creatinine Ratio (10-20) Glucose (70-99(Fasting)) mg/dl Calcium (8.6-10.3) mg/dl Magnesium (1.7-2.4) mg/dl Total Bilirubin (0.2-1.0) mg/dl AST (13-39) U/L ALT (7-52) U/L Alkaline Phosphatase (34-104) U/L Troponin I High Sens (0-20) pg/ml B-Natriuretic Peptide (0-100) pg/ml Total Protein (6.0-8.3) gm/dl Albumin (3.4-5.0) gm/dl Globulin (2.5-4.0) gm/dl Albumin/Globulin Ratio (0.9-2) Anaplasma Smear Babesia Smear Lyme Disease IgG Ab (Negative) Lyme Disease IgM Ab (Negative) SARS-CoV-2, RNA, NAAT NEGATIVE (NEGATIVE) Administered Medications Discontinued Medications Ioversol (Ioversol 350 Mg 125ml Prefilled Syringe) 110 ml IV ONCE ONE Stop: 06/03/23 14:03 Last Admin: 06/03/23 14:03 Dose: 110 ml Documented By: JANAY Imaging Data Radiologist's Impression: Chest CTA 06/03/23 12:43 CHEST CTA for PULMONARY ARTERIES CT DOSE: HISTORY: Dyspnea. TECHNIQUE: Multiaxial CT images of the chest were performed following the intravenous administration of contrast to evaluate the pulmonary arteries. 3D/Maximal intensity projection images were also obtained. Sagittal and coronal reformations were also reviewed. A dose lowering technique was utilized adhering to the principles of ALARA. COMPARISON STUDY: Chest CT 07/31/2022. FINDINGS: Normal caliber thoracic aorta. Inadequate contrast within the thoracic aorta to evaluate for an aortic dissection. The heart is moderately enlarged. No pleural or pericardial effusions. Normal esophagus. Limited views of the upper abdomen demonstrate a normal liver and spleen. Mild mediastinal lymphadenopathy which has slightly progressed. No significant hilar lymphadenopathy. No acute fractures identified. There is metallic anchor within the left humeral head. No filling defects within the pulmonary arteries to suggest a pulmonary embolus. There are moderate to severe coronary artery calcifications again noted. No pneu mothorax. The central airways are patent. Mild dependent changes seen within the lungs posteriorly. Otherwise, no focal lung consolidations to suggest a pneumonia. There is mild central pulmonary basilar congestion without overt edema. IMPRESSION: 1. No evidence for a pulmonary embolus. 2. Cardiomegaly with mild pulmonary vascular congestion. 3. Mild mediastinal lymphadenopathy which has slightly progressed. ACT 112: Negative or not required by law. Electronically signed by: Angus Gtz M.D. 06/03/2023 2:30 PM Chest X-Ray 06/03/23 12:44 SINGLE VIEW CHEST CLINICAL HISTORY: Dyspnea. FINDINGS: An AP, portable, upright chest radiograph is compared to study dated 04/15/2022 and correlated with chest CT dated 07/31/2022. The heart is enlarged noting atherosclerotic calcification of the thoracic aorta. There is pulmonary vascular congestion. Mild scarring/atelectasis is seen at the lung bases. The l ungs and pleural spaces are otherwise clear. No pneumothorax is seen. The skeletal structures are osteopenic. The bony thorax is grossly intact. A surgical anchor is seen in the left humeral head. Spondylotic change is noted in the spine. IMPRESSION: Cardiomegaly with evidence of congestive failure. ACT 112: Negative or not required by law. Electronically signed by: Rocael Antoine M.D. 06/03/2023 1:19 PM Discharge Plan Visit Data Chief Complaint: Shortness of Breath/Dyspnea Stated Complaint: DOC WANTS TESTS ED Provider: Rocael Nunez Discharge Problem: SOB (shortness of breath), Exertional dyspnea, Elevated troponin, Thrombocyt openia, CHF (congestive heart failure) Patient Disposition: Admitted As Inpatient Condition: Fair Forms Stand Alone Forms: [facility] Prescriptions Prescriptions: No Action atorvastatin 40 mg tablet 40 mg PO DAILY Qty: 90 3RF multivitamin Tablet 1 tab PO DAILY (DME) Incentive Spirometer Misc See Rx Instructions .MEDSUPPLY Qty: 1 0RF Rx Instructions: As directed aspirin [Adult Low Dose Aspirin] 81 mg tablet,delayed release (DR/EC) 81 mg PO DAILY Qty: 30 2RF Hold Instructions: Home Medication placed on hold at Doctor's office cyanocobalamin (vitamin B-12) 1,000 mcg capsule 1,000 mcg PO DAILY Qty: 30 0RF Rx Instructions: OTC Referrals Referrals: Amandeep Seo CRNP [Primary Care Provider] -
--- NOTE | 2023-06-03 13:21 | XRay Report ---
SINGLE VIEW CHEST CLINICAL HISTORY: Dyspnea. FINDINGS: An AP, portable, upright chest radiograph is compared to study dated 04/15/2022 and correlat ed with chest CT dated 07/31/2022. The heart is enlarged noting atherosclerotic calcification of the t horacic aorta. There is pulmonary vascular congestion. Mild scarring/atelectasis is seen at the lung bases. The lungs and pleural spaces are otherwise clear. No pneumothorax is seen. The skeletal struct ures are osteopenic. The bony thorax is grossly intact. A surgical anchor is seen in the left humeral head. Spondylotic change is noted in the spine. IMPRESSION: Cardiomegaly with evidence of congestive failure. ACT 112: Negative or not required by law. Electronically signed by: Rocael Antoine M.D. 06/03/2023 1:19 PM
[2023-06-03] MEDS ORDERED: IOVERSOL 350 MG 125mL Prefilled Syringe IV ONE ×2 (13:26→14:02)
[2023-06-03 13:28] LABS: Basophils # (auto) 0.02 K/uL (0-0.2); Basophils % (auto) 0.5 %; Eosinophils % (auto) 2.3 %; Hematocrit (blood only) 43.5 % (42.0-52.0); Hemoglobin 14.8 g/dl (14.0-18.0); Immature Granulocytes # (auto) 0.03 K/uL (0.01-0.20); Immature Granulocytes % (auto) 0.7 %; Lymphocytes # (auto) 0.68 K/uL (1.2-3.4); Lymphocytes % (auto) 15.9 %; Mean Corpuscular Hemoglobin 33.3 pg (25.0-34.0); Mean Platelet Volume 10.7 fL (9.4-12.4); Monocytes # (auto) 0.36 K/uL (0.11-0.59); Monocytes % (auto) 8.4 %; Neutrophils # (auto) 3.08 K/uL (1.40-6.50); Neutrophils % (auto) 72.2 %; Platelet Count 105 K/uL (130-400); RDW Coefficient of Variation 13.2 % (11.5-14.5); RDW Standard Deviation 47.5 fL (36.4-46.3); Red Blood Count 4.44 M/uL (4.70-6.10); White Blood Count 4.27 K/ul (4.8-10.8)
[2023-06-03 13:42] LABS: Albumin Globulin Ratio 1.7 (0.9-2); BUN Creatinine Ratio 17.6 (10-20); Bilirubin,Total 0.9 mg/dl (0.2-1.0); Creatinine Clr Calc Pharmacy 38.9 ml/min; Est GFR (African American) 51.1 ml/min; Est GFR (Non-African American) 44.1 ml/min; Globulin 2.4 gm/dl (2.5-4.0); Magnesium 2.1 mg/dl (1.7-2.4); Potassium 3.7 mmol/L (3.5-5.1); Total Protein 6.4 gm/dl (6.0-8.3)
[2023-06-03 13:48] LABS: Troponin I High Sensitivity 43.1 pg/ml (0-20)
[2023-06-03 13:57] LABS: INR 1.1 (0.9-1.1); Partial Thromboplastin Time 27.1 Seconds (21.0-31.0); Prothrombin Time 11.7 Seconds (9.0-12.0)
[2023-06-03 14:19] LABS: RBC Morphology Unremarkable
--- NOTE | 2023-06-03 14:31 | CT Scan Report ---
CHEST CTA for PULMONARY ARTERIES CT DOSE: HISTORY: Dyspnea. TECHNIQUE: Multiaxial CT images of the chest were performed following the intravenous administration of contrast to evaluate the pulmonary arteries. 3D/Maximal intensity projection images were also obta ined. Sagittal and coronal reformations were also reviewed. A dose lowering technique was utilized a dhering to the principles of ALARA. COMPARISON STUDY: Chest CT 07/31/2022. FINDINGS: Normal caliber thoracic aorta. Inadequate contrast within the thoracic aorta to evaluate fo r an aortic dissection. The heart is moderately enlarged. No pleural or pericardial effusions. Normal esophagus. Limited views of the upper abdomen demonstrate a normal liver and spleen. Mild mediastina l lymphadenopathy which has slightly progressed. No significant hilar lymphadenopathy. No acute fract ures identified. There is metallic anchor within the left humeral head. No filling defects within the pulmonary arteries to suggest a pulmonary embolus. There are moderate to severe coronary artery calc ifications again noted. No pneumothorax. The central airways are patent. Mild dependent changes seen within the lungs posteriorly. Otherwise, no focal lung consolidations to suggest a pneumonia. There i s mild central pulmonary basilar congestion without overt edema. IMPRESSION: 1. No evidence for a pulmonary embolus. 2. Cardiomegaly with mild pulmonary vascular congestion. 3. Mild mediastinal lymphadenopathy which has slightly progressed. ACT 112: Negative or not required by law. Electronically signed by: Angus Gtz M.D. 06/03/2023 2:30 PM
[2023-06-03 14:33] LABS: Lyme Ab IgG w/WB Rflx Negative (Negative); Lyme Ab IgM w/WB Rflx Negative (Negative)
[2023-06-03] MEDS ORDERED: FUROSEMIDE 40 MG/4 ML VIAL IV ONE (14:42)
[2023-06-03 15:12] LABS: Appearance Urine Clear (Clear); Bilirubin Urine Negative (Negative); Blood Urine Negative (Negative); Color Urine Yellow; Glucose Urine UA Negative (Negative); Ketones Urine Negative (Negative); Leukocyte Esterase Urine Negative (Negative); Nitrite Urine Negative (Negative); Protein Urine Negative (Negative); Specific Gravity Urine > 1.045 (1.000-1.030); Urobilinogen Urine Negative (Negative)
--- NOTE | 2023-06-03 15:16 | Electrocardiogram Report ---
Test Reason : Blood Pressure : / mmHG Vent. Rate : 059 BPM Atrial Rate : 059 BPM P-R Int : 192 ms QRS Dur : 124 ms QT Int : 472 ms P-R-T Axes : 047 -55 021 degrees QTc Int : 467 ms Sinus bradycardia with Premature atrial complexes Right bundle branch block Left anterior fascicular block Bifascicular block Septal infarct (cited on or before 03-JUN-2023) Abnormal ECG When compared with ECG of 15-SEP-2022 10:56, Premature atrial complexes are now Present Nonspecific T wave abnormality no longer evident in Lateral leads Confirmed by Chirag Carlson ([id number]) on 06/03/2023 3:15:33 PM Referred By: Amandeep Seo Confirmed By:Chirag Carlson
--- NOTE | 2023-06-03 15:21 | History & Physical Report ---
Date of Service June 03, 2023 Assessment & Plan (1) Acute diastolic CHF (congestive heart failure): Plan: Acute on chronic heart failure with preserved ejection fraction With history of PCI and TRA x2 in 2016 on aspirin Repeat cath 2020 with mild earlymid RCA in-stent restenosis and severe disease and small PDA. Subsequently medically managed Last echo 04/06: EF 55-60%, no regional wall motion abnormalities. Mild RV dysfunction/dilation. Diastolic dysfunction noted. BNP elevated at 218, last in 2021 was 350 High-sensitivity troponin 43.1, patient with troponin of 40/50s chronically 04/04/2022 - 09/04/2022. Suspect residual versus demand in the setting of CHF Creatinine baseline approximately 1.31.4, admitting creatinine 1.4 CXR: Cardiomegaly with evidence of pulmonary vascular congestion and mild volume overload CTA: No evidence of PE. Cardiomegaly with pulmonary vascular congestion, slightly progressive mediastinal lymphadenopathy, no focal consolidations. Central congestion without overt edema EKG: Sinus bradycardia with PACs, right bundle branch block. No territorial signs of ischemia. Troponin trended, repeat limited echo for wall motion pending Interstitial lung disease, COPD/restrictive lung disease overlap Last PFT 04/2022: FVC 1.92 (56% predicted), FEV1 1.56 (64% predicted), FEV1/FVC ratio 81.24 (113% predicted). Nonspecific, suspected combined obstructive and restrictive lung disease, DLCO mildly reduced, mild air trapping. 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 We will treat CHF on admission and defer pulmonary consultation unless patient does not clinically improve Former 2 tobacco user, no history of smoked tobacco. 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 He is now amenable to this is an actually establishing with [facility] pulmonology specialist. We will keep this outpatient follow-up A-fib not on anticoagulation Not on anticoagulation due to history of retinal bleeding EKG sinus bradycardia on admission Hypertension Patient self discontinued lisinopril/amlodipine. Continue to follow. If hype rtensive and amlodipine Low-salt diet CKD Baseline creatinine 1.31.5 Trend daily, low-salt diet Admitting creatinine 1.48, trend daily Hyperlipidemia Continue atorvastatin 40 mg daily History of microscopic polyangiitis Diagnosed 01/2016. Residual foot drop on the left side. Follows as outpatient. No acute change in management at this time Leukopenia, thrombocytopenia Stable. Tickborne serology pending No indication for transfusion, no clinical signs of bleeding DVT prophylaxis: SCDs due to bleeding risk (2) Microscopic polyangiitis: (3) Thrombocytopenia: (4) Thrombocytopenia: (5) History of non-ST elevation myocardial infarction (NSTEMI): (6) Arteriosclerotic coronary artery disease: (7) Afib: (8) Chronic kidney disease, stage 3 (moderate): History of Present Illness Primary Care Provider: TORSTEN Nair Dae is an 82-year-old male Who presents with crackles, elevated BNP, mildly bumped troponin, and radiographic evidence of CHF. He is referred for CHF. Benny reports his breathing has been worsening for several years 'older I get w orse it gets.' Only remitting factor is just rest. No chest pain or chest pressure. No leg swelling. Just a lot of mucous production, clear. NO fevers, chills, or sweats Breathing is worse in the last 4-7 days than normal. 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 No chest pain, follows with Dr. Sarkar Recently with blurry vision bilaterally which i sunusual. Was doing well after cataract surgery. Medical History: Reviewed Medications: Reviewed Surgical History: Reviewed Family history: Reviewed Allergies: Reviewed Social History: Chew use, no cigarettes. Code Status: Full COde Allergies Allergy/AdvReac Type Severity Reaction Status Date / Time thiopental AdvReac Intermediate YRS Verified 06/03/23 09:47 AGO-HALLUCINATIONS Home Medications Medication Instructions Recorded Confirmed Type aspirin 81 mg tablet,delayed 81 mg PO DAILY #30 tabs 09/12/19 06/03/23 Rx release (Adult Low Dose Aspirin) cyanocobalamin (vitamin B-12) 1,000 mcg PO DAILY #30 caps 04/17/22 06/03/23 Rx 1,000 mcg capsule Incentive Spirometer #1 ea 05/29/22 06/03/23 Rx atorvastatin 40 mg tablet 40 mg PO DAILY #90 tabs 12/23/22 06/03/23 Rx multivitamin 1 tab PO DAILY 03/11/23 06/03/23 History Past Med/Surg History Medical History Afib No longer on Eliquis due to bleeding. Arteriosclerotic coronary artery disease S/p NSTEMI and PCI with TRA x 2 to RCA in 2016 ; repeat cardiac cath 10/2021- moderate mid RCA ISR, severe small PDA disease B12 deficiency Bilateral cataracts BPH (benign prostatic hyperplasia) Carotid stenosis Left ICA 50 to 69%, followed by Dr. Gerber. 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 Depression Dyslipidemia Esophageal reflux Foot drop Left Foot History of non-ST elevation myocardial infarction (NSTEMI) (02/2017) Pt denies Per records - post NSTEMI and PCI with TRA x 2 to RCA Hypertension Lumbar stenosis Macrocytosis without anemia Microscopic polyangiitis Per records Multiple pulmonary nodules Prostate cancer (06/2018) S/p XRT 2017 Thrombocytopenia Plts stable at 125 on 04/03/22 labs Surgical History H/O heart artery stent (02/2017) H/O hernia repair H/O knee surgery H/O nasal septoplasty (2011) H/O umbilical hernia repair History of back surgery History of carpal tunnel surgery of left wrist History of carpal tunnel surgery of right wrist History of placement of ear tubes (2011) S/P hip arthroscopy (2005) S/P lumbar laminectomy (12/22/16) S/P rotator cuff repair (2014) Family History Father Myocardial infarction Mother No problems noted. Brother No problems noted. Sister No problems noted. Daughter No problems noted. 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 Beliefs That Will Affect Care: None marital status: Current Living Situation: Spouse current occupational status: retired How many Children do You have: 1 Feels Safe at Home: Yes Childhood Exposure to Second-Hand Smoke: No Diet: regular Diet Comment: regular caffeine: Yes (1 cup of coffee/day, 1 soda/day ) during the past year weight has: decreased > 10 lbs Dental Care, Regularly: Yes Physical Activity Frequency: Daily Physical Activity Frequency Comment: walking Seatbelt Use: always Sunscreen Use: No Assistive Devices: None Review of Systems Review of Systems: All systems reviewed & are unremarkable except as noted in Subjective Physical Exam Physical Exam: General: A&Ox3. NAD. Cooperative. HEENT: Atraumatic, normocephalic. Vision/hearing grossly intact, very hard of hearing EOMs intact without nystagmus and vision sharp on confrontation, although patient noted some intermittent blurry vision previously. He is pending a right cataract extraction, recently had his left cataract removed which helped improve his vision Pulm: Fine bibasal crackles.Symmetrical chest rise. No increased work of breathing. No respiratory distress. Cardiac: RRR, -mrg. Radial pulses intact and symmetrical. No JVD Abdominal: Nontender, nondistended, soft. BS present. Extremities: No upper or lower extremity edema Results & Data Results & Data Vital Signs (Past 12 Hours) Vital Signs Temp Pulse Pulse Resp BP BP Pulse Ox 06/03/23 15:00 56 L 20 167/89 H 96 06/03/23 13:17 95 06/03/23 13:17 95 06/03/23 12:43 57 L 16 99 06/03/23 12:43 24 148/77 H 95 06/03/23 12:21 36.5 C 68 18 131/72 98 O2 Del Method 06/03/23 15:00 Room Air 06/03/23 13:17 Room Air 06/03/23 13:17 Room Air 06/03/23 12:43 Room Air 06/03/23 12:43 Room Air 06/03/23 12:21 Room Air PG Care Time/CCT Total # of Minutes Spent Total Time Spent with Patient: Total time spent is greater than 50% in coordination of care (as documented) at patient's floor/unit and/or counseling patient: Coding Level of Care Code 20773 INT INP/OBS CARE MIN Diagnoses Acute diastolic CHF (congestive heart failure) I50.31 Microscopic polyangiitis M31.7 Thrombocytopenia D69.6 History of non-ST elevation myocardial infarction (NSTEMI) I25.2 Arteriosclerotic coronary artery disease I25.10 Afib I48.91 Chronic kidney disease, stage 3 (moderate) N18.3
[2023-06-03] MEDS ORDERED: amLODIPine BESYLATE 5 MG TAB PO ONE (18:47)
[2023-06-03] MEDS ORDERED: ACETAMINOPHEN 325 MG TAB PO PRN (19:51)
[2023-06-04 06:16] LABS: Basophils # (auto) 0.02 K/uL (0-0.2); Basophils % (auto) 0.4 %; Eosinophils # (auto) 0.19 K/uL (0-0.50); Eosinophils % (auto) 4.2 %; Hematocrit (blood only) 42.8 % (42.0-52.0); Hemoglobin 14.4 g/dl (14.0-18.0); Immature Granulocytes # (auto) 0.02 K/uL (0.01-0.20); Immature Granulocytes % (auto) 0.4 %; Lymphocytes # (auto) 0.87 K/uL (1.2-3.4); Mean Corpuscular Hemoglobin 33.1 pg (25.0-34.0); Mean Corpuscular Hgb Conc 33.6 g/dL (32.0-36.0); Mean Corpuscular Volume 98.4 fL (80.0-100.0); Mean Platelet Volume 10.3 fL (9.4-12.4); Monocytes # (auto) 0.46 K/uL (0.11-0.59); Monocytes % (auto) 10.1 %; Neutrophils # (auto) 3.01 K/uL (1.40-6.50); Neutrophils % (auto) 65.9 %; Platelet Count 126 K/uL (130-400); RDW Coefficient of Variation 13.3 % (11.5-14.5); RDW Standard Deviation 48.8 fL (36.4-46.3); Red Blood Count 4.35 M/uL (4.70-6.10); White Blood Count 4.57 K/ul (4.8-10.8)
[2023-06-04 06:31] LABS: Calcium 9.1 mg/dl (8.6-10.3); Creatinine Clr Calc Pharmacy 29.9 ml/min; Est GFR (African American) 40.8 ml/min; Est GFR (Non-African American) 35.2 ml/min; Potassium 4.1 mmol/L (3.5-5.1)
[2023-06-04] MEDS: ASPIRIN 81 MG ECTAB PO SCH (07:42)
[2023-06-04] MEDS: ATORVASTATIN 40 MG TAB PO SCH (07:42)
[2023-06-04] MEDS ORDERED: FUROSEMIDE INJ 20 MG/2 ML VIAL IV SCH (09:00)
--- NOTE | 2023-06-04 12:08 | Hospitalist Progress Note ---
Date of Service June 04, 2023 Assessment & Plan (1) Interstitial lung disease: Plan: Interstitial lung disease, COPD/restrictive lung disease overlap: Last PFT 04/2022: FVC 1.92 (56% predicted), FEV1 1.56 (64% predicted), FEV1/FVC ratio 81.24 (113% predicted). 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 Gonzalez Former chewing tobacco user, no history of smoked tobacco. 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 He is now amenable to this is an actually establishing with [facility] Pulmonology specialist. We will keep this outpatient follow-up No elevated eosinophils on CBC Patient fortunately not hypoxic, but dyspneic with exertion Reported no benefit in the past from Spiriva, will trial Anoro/Albuterol HFA Given no improvement in symptoms with diuresis, will ask Pulmonology to consult in AM for recommendations Acute on chronic heart failure with preserved ejection fraction: With history of PCI and TRA x2 in 2016 on aspirin Repeat cath 2020 with mild earlymid RCA in-stent restenosis and severe disease and small PDA. Subsequently medically managed Last echo 04/06: EF 55-60%, no regional wall motion abnormalities. Mild RV dysfunction/dilation. Diastolic dysfunction noted BNP elevated at 218 this admission High-sensitivity troponin 43.1->45.8->74.6->75.6, suspect demand ischemia CXR: Cardiomegaly with evidence of pulmonary vascular congestion and mild volume overload CTA: No evidence of PE. Cardiomegaly with pulmonary vascular congestion, slightly progressive mediastinal lymphadenopathy, no focal consolidations. Ce ntral congestion without overt edema EKG: Sinus bradycardia with PACs, right bundle branch block. No territorial signs of ischemia Repeat Echo pending Received IV Lasix without improvement in symptoms, and now with SARAH see below, Lasix stopped Kendal Edmond with CHF clinic recommending PRN Lasix 20mg on discharge Acute kidney injury on CKD: Baseline creatinine ~1.4, with creatinine 1.78 today in the setting of contrast load for CTA Chest yesterday, and IV diuretics which are now held Repeat BMP tomorrow A-fib not on anticoagulation: Not on anticoagulation due to history of retinal bleeding EKG sinus bradycardia on admission Hypertension: Patient self discontinued lisinopril/amlodipine. Continue to follow. If hypertensive add amlodipine Low-salt diet Hyperlipidemia: Continue atorvastatin 40 mg daily History of microscopic polyangiitis: Diagnosed 01/2016. Residual foot drop on the left side. Follows as outpatient. No acute change in management at this time Leukopenia, thrombocytopenia: Stable. Lyme negative, Anaplasma/Babesia smears negative, DNA pending No indication for transfusion, no clinical signs of bleeding DVT prophylaxis: SCDs due to Hx retinal hemorrhage (2) Acute diastolic CHF (congestive heart failure): (3) Microscopic polyangiitis: (4) Thrombocytopenia: (5) Arteriosclerotic coronary artery disease: (6) Afib: (7) Chronic kidney disease, stage 3 (moderate): (8) Acute kidney injury: Admission and Anticipated Discharge Date Admission Date: June 03, 2023 Subjective No acute events overnight. Breathing feels about the same as yesterday, maybe the tiniest bit better. No chest pain, palpitations, nausea, vomiting. Review of Systems Review of Systems: All systems reviewed & are unremarkable except as noted in Subjective Physical Exam Constitutional: WD/WN, vitals as above Respiratory: normal respiratory effort, lungs clear to auscultation Cardiovascular: RRR, no murmur, no edema Gastrointestinal (Abdomen): normal bowel sounds, soft, nontender, no hep atosplenomegaly Skin: no rashes, warm and dry Psychiatric: A+Ox3, euthymic affect Results & Data Results & Data Vital Signs (Past 12 Hours) Vital Signs Temp Pulse Pulse Resp BP Pulse Ox O2 Del Method 06/04/23 11:28 36.8 C 56 L 18 112/69 95 Room Air 06/04/23 10:16 58 L 06/04/23 08:47 36.8 C 58 L 18 90/56 L 96 Room Air 06/04/23 04:43 111/69 06/04/23 04:10 36.6 C 55 L 18 90/48 L 94 Room Air 06/04/23 00:50 59 L PG Care Time/CCT Total # of Minutes Spent Total Time Spent with Patient: Total time spent is greater than 50% in coordination of care (as documented) at patient's floor/unit and/or counseling patient: Coding Level of Care Code 67921 SUB INP/OBS CARE MIN Diagnoses Interstitial lung disease J84.9 Acute diastolic CHF (congestive heart failure) I50.31 Microscopic polyangiitis M31.7 Thrombocytopenia D69.6 Arteriosclerotic coronary artery disease I25.10 Afib I48.91 Chronic kidney disease, stage 3 (moderate) N18.3 Acute kidney injury N17.9
--- NOTE | 2023-06-04 12:24 | Heart Failure Consultation ---
Date of Consultation June 04, 2023 Assessment & Plan (1) (HFpEF) heart failure with preserved ejection fraction: Currently NYHA Class II-III symptoms. Suspected HFpEF based on previous echo imaging. Current echo reading is still pending. Patient presented with shortness of breath. BNP elevated and pulmonary congestion on imaging. Does not appear significantly hypervolemic on exam today. He has responded well to IV diuretics. BUN/creatinine bumping today. His breathing is somewhat better but not yet what he would consider his baseline. Suspect he did have some volume load but also likely a pulmonary etiology to his symptoms. Would hold further diuretics today given azotemia. Discussed general CHF management at home. Recommend daily standing weights after discharge. He does have a scale at home. He was advised to document daily and bring to his upcoming appointment. Notify HF program for 2+ lb gain overnight or 5+ lb in 1 week. Would recommend discharging with Lasix 20 mg PRN only. Repeat BMP, BNP next week for trending. Recommend low sodium diet, less than 2,000 mg daily. CHF education packet ordered. We discussed the nature of heart failure and the goals of the program. He is agreeable to ongoing participation. Disposition: Will continue to follow during admission. Outpatient follow up has been scheduled for 06/11 at 1030 am. Patient was discussed with Dr. Beard of the primary service as well as Dr. Sarkar. Supervising Physician Co-Signing Physician Notes Agree with assessment and plan at outlined by Kendal Edmond PA-C. Mr. Mejia well know to me from outpatient setting. Admitted with worsening dyspnea and concern for acute HFpEF. Responded well to IV diuretics and today appears euvolemic. Echo reviewed. Has severe LVH with hyperdynamic LV and BRINDA with mild LVOT. Filling pressures on echo low. Recommend home daily weights and PRN loop diuretic with CHF follow-up. Echo has appearance of possible amyloid and will consider additional evaluation as an outpatient. History of Present Illness Attending Physician: Adriana Montoya, History of Present Illness Mr. Mejia is a 82 year-old man with a history of inflammatory arthritis, microscopic polyangitis, ILD, CKD, hyperlipidemia, carotid artery stenosis, hypertension, atrial fibrillation and coronary artery disease with prior NSTEMI requiring PCI with drug-eluting stent placement x2 to his right coronary artery. Dr. Sarkar is his primary choke setter. He was last evaluated in June 2022. Patient presented to the ED on 06/03/23 with shortness of breath. He also notes a productive cough but this is somewhat chronic for him. He also has history of ILD which may be contributing. He was evaluated by his PCP and referred to the ED due to EKG changes. No ST changes on EKG. BNP elevated at 218. Troponin minimally elevated. CT negative for PE. CXR with pulmonary congestion. He was treated with Lasix 40 mg IV. Patient reports feeling somewhat improved today but is still short of breath. He is saturating well on RA. His breathing issues have been chronic but progressive in recent week. He denies any lower extremity edema, orthopnea, PND, chest pain. He does not weigh himself at home typically. He reports good response to Lasix. He is net negative 2.6 L overnight. Weight is trending down. Allergies Allergy/AdvReac Type Severity Reaction Status Date / Time thiopental AdvReac Intermediate YRS Verified 06/03/23 09:47 AGO-HALLUCINATIONS Home Medications Medication Instructions Recorded Confirmed Type aspirin 81 mg tablet,delayed 81 mg PO DAILY #30 tabs 09/12/19 06/03/23 Rx release (Adult Low Dose Aspirin) cyanocobalamin (vitamin B-12) 1,000 mcg PO DAILY #30 caps 04/17/22 06/03/23 Rx 1,000 mcg capsule Incentive Spirometer #1 ea 05/29/22 06/03/23 Rx atorvastatin 40 mg tablet 40 mg PO DAILY #90 tabs 12/23/22 06/03/23 Rx multivitamin 1 tab PO DAILY 03/11/23 06/03/23 History Patient History Medical History Afib Arteriosclerotic coronary artery disease B12 deficiency Bilateral cataracts BPH (benign prostatic hyperplasia) Carotid stenosis Chronic kidney disease, stage 3 (moderate) Chronic obstructive pulmonary disease 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 Depression Dyslipidemia Esophageal reflux Foot drop History of non-ST elevation myocardial infarction (NSTEMI) (02/2017) Hypertension Lumbar stenosis Macrocytosis without anemia Microscopic polyangiitis Multiple pulmonary nodules Prostate cancer (06/2018) Thrombocytopenia Surgical History H/O heart artery stent (02/2017) H/O hernia repair H/O knee surgery H/O nasal septoplasty (2011) H/O umbilical hernia repair History of back surgery History of carpal tunnel surgery of left wrist History of carpal tunnel surgery of right wrist History of placement of ear tubes (2011) S/P hip arthroscopy (2005) S/P lumbar laminectomy (12/22/16) S/P rotator cuff repair (2014) Family History Father Myocardial infarction Mother No problems noted. Brother No problems noted. Sister No problems noted. Daughter No problems noted. Denies family history of Ovarian cancer Prostate cancer Breast cancer Lung cancer Colorectal cancer Social History Smoking Status: Never smoker Tobacco Type: Smokeless Tobacco (Dip or Chew) Age Started Using Tobacco: 50; Second Hand Exposure: No; Do You Dip or Chew Tobacco: Yes; Hx Alcohol Use: Yes Alcohol type: hard liquor Alcohol Intake Frequency: Monthly or Less Hx Substance Use: No Preferred Language: Filipino Communication Ability: Effective Visual Impairment: Partially Limited Hearing Ability: Hard of Hearing Loan Documentation Specialist Required: No Beliefs That Will Affect Care: None marital status: Current Living Situation: Spouse current occupational status: retired How many Children do You have: 1 Feels Safe at Home: Yes Childhood Exposure to Second-Hand Smoke: No Diet: regular Diet Comment: regular caffeine: Yes (1 cup of coffee/day, 1 soda/day ) during the past year weight has: decreased > 10 lbs Dental Care, Regularly: Yes Physical Activity Frequency: Daily Physical Activity Frequency Comment: walking Seatbelt Use: always Sunscreen Use: No Assistive Devices: None Physical Exam Physical Exam: Constitutional: Alert, oriented, in no acute distress HEENT: Head is atraumatic and normocephalic. EOMs intact. Sclera anicteric. Face is symmetric. No perioral cyanosis. Mucous membranes moist. Neck: Supple, no JVD Pulmonary: Normal respiratory effort, faint bibasilar crackles otherwise clear to auscultation bilaterally Cardiac: Regular rate and rhythm. Normal S1 and S2, no gallops, no rubs, no murmurs Extremities: 2+ radial pulses bilaterally. 2+ posterior tibialis pulses bila terally. No pitting edema. No cyanosis or clubbing. Abdomen: Normal bowel sounds, soft, non-tender, no abdominal mass palpated Skin: Normal skin color, turgor, and pigmentation, no rash, no skin lesions Neurological: Patient is awake, alert, and oriented. Pleasant and cooperative. Answers questions appropriately. Speech is clear. Normal movement in all 4 extremities. Gait pattern is unremarkable. Results & Data Vital Signs (Past 12 Hours) Vital Signs Temp Pulse Pulse Resp BP Pulse Ox O2 Del Method 06/04/23 11:28 98.2 F 56 L 18 112/69 95 Room Air 06/04/23 10:16 58 L 06/04/23 08:47 98.2 F 58 L 18 90/56 L 96 Room Air 06/04/23 04:43 111/69 06/04/23 04:10 97.9 F 55 L 18 90/48 L 94 Room Air 06/04/23 00:50 59 L Heart Failure Data/Metrics Heart Failure Type: HFpEF (EF > 50%) Ejection Fraction: 55-60% Evidenced Based Beta Reji Therapy Beta Reji Therapy: Not Indicated CONSUELO/ARB/ARNI Therapy CONSUELO/ARB/ARNI Therapy: Not Indicated Aldosterone Antagonist Therapy Aldosterone Antagonist Therapy: Not Indicated Coding Level of Care Code 96975 INT INP/OBS CARE Diagnoses (HFpEF) heart failure with preserved ejection fraction I50.30
[2023-06-04 14:38] LABS: Base Excess VBG 6.3 mEq/L; HCO3 VBG 33 mmol/L; Oxygen Saturation VBG < 60.0 %; PCO2 VBG 53 mmHg (38-50); PO2 VBG 28 mmHg
[2023-06-04] MEDS ORDERED: predniSONE 20 MG TAB PO SCH (14:45)
[2023-06-04] MEDS ORDERED: ALBUTEROL HFA 8 GM INHALER INH SCH (17:30)
--- NOTE | 2023-06-04 17:39 | XCELERA ---
[id number]
[2023-06-04] MEDS: ALBUTEROL HFA 8 GM INHALER INH SCH (18:04)
[2023-06-04] MEDS: UMECLIDINIUM/VILANTEROL 62.5/25MCG 7 PUFFS/INHALER INH SCH (21:20)
[2023-06-05] MEDS: ALBUTEROL HFA 8 GM INHALER INH SCH ×3 (00:31→14:10)
[2023-06-05 07:19] LABS: Basophils # (auto) 0.02 K/uL (0-0.2); Basophils % (auto) 0.4 %; Eosinophils # (auto) 0.28 K/uL (0-0.50); Eosinophils % (auto) 5.3 %; Hematocrit (blood only) 42.5 % (42.0-52.0); Hemoglobin 14.5 g/dl (14.0-18.0); Immature Granulocytes # (auto) 0.02 K/uL (0.01-0.20); Immature Granulocytes % (auto) 0.4 %; Lymphocytes # (auto) 0.95 K/uL (1.2-3.4); Lymphocytes % (auto) 18.1 %; Mean Corpuscular Hgb Conc 34.1 g/dL (32.0-36.0); Mean Corpuscular Volume 96.6 fL (80.0-100.0); Mean Platelet Volume 10.6 fL (9.4-12.4); Monocytes # (auto) 0.44 K/uL (0.11-0.59); Monocytes % (auto) 8.4 %; Neutrophils # (auto) 3.55 K/uL (1.40-6.50); Neutrophils % (auto) 67.4 %; Platelet Count 128 K/uL (130-400); RDW Coefficient of Variation 13.5 % (11.5-14.5); RDW Standard Deviation 48.4 fL (36.4-46.3); White Blood Count 5.26 K/ul (4.8-10.8)
[2023-06-05 07:30] LABS: BUN Creatinine Ratio 21.6 (10-20); Creatinine Clr Calc Pharmacy 26.7 ml/min; Est GFR (African American) 35.7 ml/min; Est GFR (Non-African American) 30.8 ml/min; Potassium 3.9 mmol/L (3.5-5.1)
--- NOTE | 2023-06-05 08:02 | Hospitalist Progress Note ---
Date of Service June 05, 2023 Assessment & Plan (1) Interstitial lung disease: Plan: COPD/restrictive lung disease overlap: Last PFT 04/2022: FVC 1.92 (56% predicted), FEV1 1.56 (64% predicted), FEV1/FVC ratio 81.24 (113% predicted). 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 Gonzalez Former chewing tobacco user, no history of smoked tobacco. 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 He is now amenable to this is an actually establishing with [facility] Pulmonology specialist No elevated eosinophils on CBC Patient fortunately not hypoxic, but dyspneic with exertion, suspect due to chronic progressive lung disease No evidence of aortic stenosis on Echo Reported no benefit in the past from Spiriva, will trial Anoro but unclear if will confer benefit Pulmonology consulted this admission, no additional recommendations, follow up with Dr. Gonzalez Acute on chronic heart failure with preserved ejection fraction: With history of PCI and TRA x2 in 2016 on aspirin Repeat cath 2020 with mild earlymid RCA in-stent restenosis and severe disease and small PDA. Subsequently medically managed BNP elevated at 218 this admission High-sensitivity troponin 43.1->45.8->74.6->75.6->65.9, suspected demand ischemia CXR: Cardiomegaly with evidence of pulmonary vascular congestion and mild volume overload CTA: No evidence of PE. Cardiomegaly with pulmonary vascular congestion, slightly progressive mediastinal lymphadenopathy, no focal consolidations. Central congestion without overt edema EKG: Sinus bradycardia with PACs, right bundle branch block. No territorial signs of ischemia Echo 06/05/2023 with grade 1 diastolic dysfunction, no evidence of , LVEF >70% Reports breathing actually better today Kendal Edmond with CHF clinic recommending PRN Lasix 20mg on discharge Acute kidney injury on CKD: Baseline creatinine ~1.4, with creatinine 1.99 today in the setting of contr ast load for CTA Chest 06/03, and IV diuretics which are now held Patient is adamant about return home, reviewed possible risks of discharge and he was understanding of these, was amenable to labwork on Thursday with return to hospital if renal function declining further A-fib not on anticoagulation: Not on anticoagulation due to history of retinal bleeding EKG sinus bradycardia on admission Hypertension: Patient self discontinued lisinopril/amlodipine, BP normotensive Low-salt diet Hyperlipidemia: Continue atorvastatin 40 mg daily History of microscopic polyangiitis: Diagnosed 01/2016. Residual foot drop on the left side. Follows as outpatient. No acute change in management at this time Leukopenia, thrombocytopenia: Stable. Lyme negative, Anaplasma/Babesia smears negative, DNA pending No indication for transfusion, no clinical signs of bleeding (2) Acute diastolic CHF (congestive heart failure): (3) Microscopic polyangiitis: (4) Thrombocytopenia: (5) Arteriosclerotic coronary artery disease: (6) Afib: (7) Chronic kidney disease, stage 3 (moderate): (8) Acute kidney injury: Admission and Anticipated Discharge Date Admission Date: June 03, 2023 Results & Data Results & Data Vital Signs (Past 12 Hours) Vital Signs Temp Pulse Pulse Resp BP BP Pulse Ox 06/05/23 07:34 69 16 95 06/05/23 07:16 36.7 C 69 20 90/57 L 94 06/05/23 02:38 36.8 C 69 17 105/54 L 94 06/04/23 23:17 60 06/04/23 23:14 36.6 C 62 19 103/49 L 94 O2 Del Method 06/05/23 07:34 Room Air 06/05/23 07:16 Room Air 06/05/23 02:38 Room Air 06/04/23 23:17 06/04/23 23:14 Room Air PG Care Time/CCT Total # of Minutes Spent Total Time Spent with Patient: Total time spent is greater than 50% in coordination of care (as documented) at patient's floor/unit and/or counseling patient: Coding Diagnoses Interstitial lung disease J84.9 Acute diastolic CHF (congestive heart failure) I50.31 Microscopic polyangiitis M31.7 Thrombocytopenia D69.6 Arteriosclerotic coronary artery disease I25.10 Afib I48.91 Chronic kidney disease, stage 3 (moderate) N18.3 Acute kidney injury N17.9
--- NOTE | 2023-06-05 08:57 | Pulmonary Consultation ---
Date of Consultation June 05, 2023 Assessment & Plan (1) SOB (shortness of breath): (2) Left ventricular outflow tract obstruction: (3) Aortic insufficiency: (4) Acute diastolic CHF (congestive heart failure): Plan Impression: 82-year-old male with mild restrictive PFTs but no evidence of interstitial lung disease admitted with shortness of breath which is progressive. I suspect the etiology of his shortness of breath is related to his cardiovascular issues including his left ventricular outflow tract obstruction, grade 2 diastolic dysfunction, and aortic insufficiency. 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 Recommendations: 1. Continued cardiology evaluation consultation regarding his left ventricular outflow tract obstruction, management of his aortic insufficiency and diastolic heart failure. 2. His pulmonary work-up can largely be accomplished in the outpatient setting. He saw his licensed pharmacist about 6 months ago with plans to have repeat breathing tests in about a year. Would recommend that he follow-up with Dr. Gonzalez at discharge and consider repeat PFTs at that point in time. There is no indica tion for inhalers steroids antibiotics or other respiratory adjuvants currently. 3. Pulmonary rehab could be considered is in the outpatient setting. Would need to optimize his cardiovascular status prior to consideration of that. From a pulmonary standpoint, the patient does not require additional inpatient evaluation or treatment. He is okay to dismiss and can follow-up in the outpatient pulmonary clinic. Feel free to contact us with questions or concerns. Pulmonary will sign off. Total of 75 minutes was spent in review of outpatient medical records and coordinating care for this patient History of Present Illness Attending Physician: Adriana Montoya, DO History of Present Illness Asked by hospitalist to evaluate this patient with shortness of breath. He is followed by Dr. Gonzalez in the outpatient setting. He has a mild restrictive pattern on his PFTs. History is obtained from discussion with the patient and review the electronic medical record. This 82-year-old male is already established in the pulmonary clinic for respiratory issues. He states he has been short of breath for years but it appears to be getting worse. He was given a nebulized treatment by his primary care provider which resulted in a presyncopal episode. He definitely did not feel better with bronchodilators. He presented to the emergency room and was admitted. He has been treated with diuretics and was seen by the heart failure management team. Echocardiogram demonstrated severe LVH with grade 2 diastolic dysfunction as well as moderate aortic insufficiency. 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 He does have a history of atrial fibrillation. The patient states that he is signing himself out of the hospital today if he is not discharged. He is never completed pulmonary rehab in the past. Allergies Allergy/AdvReac Type Severity Reaction Status Date / Time thiopental AdvReac Intermediate YRS Verified 06/03/23 09:47 AGO-HALLUCINATIONS Home Medications Medication Instructions Recorded Confirmed Type aspirin 81 mg tablet,delayed 81 mg PO DAILY #30 tabs 09/12/19 06/03/23 Rx release (Adult Low Dose Aspirin) cyanocobalamin (vitamin B-12) 1,000 mcg PO DAILY #30 caps 04/17/22 06/03/23 Rx 1,000 mcg capsule Incentive Spirometer #1 ea 05/29/22 06/03/23 Rx atorvastatin 40 mg tablet 40 mg PO DAILY #90 tabs 12/23/22 06/03/23 Rx multivitamin 1 tab PO DAILY 03/11/23 06/03/23 History Patient History Medical History Afib Arteriosclerotic coronary artery disease B12 deficiency Bilateral cataracts BPH (benign prostatic hyperplasia) Carotid stenosis Chronic kidney disease, stage 3 (moderate) Chronic obstructive pulmonary disease 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 Depression Dyslipidemia Esophageal reflux Foot drop History of non-ST elevation myocardial infarction (NSTEMI) (02/2017) Hypertension Lumbar stenosis Macrocytosis without anemia Microscopic polyangiitis Multiple pulmonary nodules Prostate cancer (06/2018) Thrombocytopenia Surgical History H/O heart artery stent (02/2017) H/O hernia repair H/O knee surgery H/O nasal septoplasty (2011) H/O umbilical hernia repair History of back surgery History of carpal tunnel surgery of left wrist History of carpal tunnel surgery of right wrist History of placement of ear tubes (2011) S/P hip arthroscopy (2005) S/P lumbar laminectomy (12/22/16) S/P rotator cuff repair (2015) Family History Father Myocardial infarction Mother No problems noted. Brother No problems noted. Sister No problems noted. Daughter No problems noted. Denies family history of Ovarian cancer Prostate cancer Breast cancer Lung cancer Colorectal cancer Social History Smoking Status: Never smoker Tobacco Type: Smokeless Tobacco (Dip or Chew) Age Started Using Tobacco: 50; Second Hand Exposure: No; Do You Dip or Chew Tobacco: Yes; Hx Alcohol Use: Yes Alcohol type: hard liquor Alcohol Intake Frequency: Monthly or Less Hx Substance Use: No Preferred Language: Polish Communication Ability: Effective Visual Impairment: Partially Limited Hearing Ability: Hard of Hearing Charge Authorizer Required: No Beliefs That Will Affect Care: None marital status: Current Living Situation: Spouse current occupational status: retired How many Children do You have: 1 Feels Safe at Home: Yes Childhood Exposure to Second-Hand Smoke: No Diet: regular Diet Comment: regular caffeine: Yes (1 cup of coffee/day, 1 soda/day ) during the past year weight has: decreased > 10 lbs Dental Care, Regularly: Yes Physical Activity Frequency: Daily Physical Activity Frequency Comment: walking Seatbelt Use: always Sunscreen Use: No Assistive Devices: None Review of Systems Review of Systems: All systems reviewed & are unremarkable except as noted in Subjective Physical Exam Constitutional: WD/WN, vitals as above Neck: trachea midline, no thyromegaly Respiratory: normal respiratory effort, lungs clear to auscultation Cardiovascular: Rate/Rhythm: + irregularly irregular; not tachycardic Heart Sounds: normal S1, normal S2 and + murmur Extremities: no edema Gastrointestinal (Abdomen): normal bowel sounds, soft, nontender, no hepatosplenomegaly Musculoskeletal: Extremities: extremities normal to inspection Skin: no rashes, warm and dry Neurologic: Nonfocal exam Lymphatic: no cervical lymphadenopathy Results & Data Results & Data Vital Signs (Past 12 Hours) Vital Signs Temp Pulse Pulse Resp BP BP Pulse Ox 06/05/23 07:57 06/05/23 07:57 71 06/05/23 07:34 69 16 95 06/05/23 07:16 36.7 C 69 20 90/57 L 94 06/05/23 02:38 36.8 C 69 17 105/54 L 94 06/04/23 23:17 60 06/04/23 23:14 36.6 C 62 19 103/49 L 94 O2 Del Method 06/05/23 07:57 Room Air 06/05/23 07:57 06/05/23 07:34 Room Air 06/05/23 07:16 Room Air 06/05/23 02:38 Room Air 06/04/23 23:17 06/04/23 23:14 Room Air Diagnostic Findings Outpatient clinical notes were extensively reviewed. A total of 20 minutes was spent in review these records Critical Care Results & Data Vital Signs (Past 12 Hours) Vital Signs Temp Pulse Pulse Resp BP BP Pulse Ox 06/05/23 07:57 06/05/23 07:57 71 06/05/23 07:34 69 16 95 06/05/23 07:16 36.7 C 69 20 90/57 L 94 06/05/23 02:38 36.8 C 69 17 105/54 L 94 06/04/23 23:17 60 06/04/23 23:14 36.6 C 62 19 103/49 L 94 O2 Del Method 06/05/23 07:57 Room Air 06/05/23 07:57 06/05/23 07:34 Room Air 06/05/23 07:16 Room Air 06/05/23 02:38 Room Air 06/04/23 23:17 06/04/23 23:14 Room Air Lab & Micro Results (Past 24 Hours) RBC 4.40 M/uL (4.70-6.10) L 06/05/23 WBC 5.26 K/ul (4.8-10.8) 06/05/23 Hgb 14.5 g/dl (14.0-18.0) 06/05/23 Hct 42.5 % (42.0-52.0) 06/05/23 MCV 96.6 fL (80.0-100.0) 06/05/23 MCH 33.0 pg (25.0-34.0) 06/05/23 MCHC 34.1 g/dL (32.0-36.0) 06/05/23 RDW Standard Deviation 48.4 fL (36.4-46.3) H 06/05/23 RDW Coefficient of Variation 13.5 % (11.5-14.5) 06/05/23 Plt Count 128 K/uL (130-400) L 06/05/23 MPV 10.6 fL (9.4-12.4) 06/05/23 Neutrophils (%) (Auto) 67.4 % 06/05/23 Lymphocytes (%) (Auto) 18.1 % 06/05/23 Monocytes # (Auto) 0.44 K/uL (0.11-0.59) 06/05/23 Eosinophils # (Auto) 0.28 K/uL (0-0.50) 06/05/23 Immature Granulocyte % (Auto) 0.4 % 06/05/23 Neutrophils # (Auto) 3.55 K/uL (1.40-6.50) 06/05/23 Lymphocytes # (Auto) 0.95 K/uL (1.2-3.4) L 06/05/23 Monocytes # (Auto) 0.44 K/uL (0.11-0.59) 06/05/23 Eosinophils # (Auto) 0.28 K/uL (0-0.50) 06/05/23 Basophils # (Auto) 0.02 K/uL (0-0.2) 06/05/23 Immature Granulocyte # (Auto) 0.02 K/uL (0.01-0.20) 3 Na 137 mmol/L (136-145) 06/05/23 K 3.9 mmol/L (3.5-5.1) 06/05/23 Cl 100 mmol/L (98-107) 06/05/23 CO2 30 mmol/L (21-32) 06/05/23 Anion Gap 7 (3-11) 06/05/23 BUN 43 mg/dl (6-23) H 06/05/23 Creatinine 1.99 mg/dl (0.6-1.4) H 06/05/23 Estimated GFR ( Amer) 35.7 ml/min 06/05/23 Estimated GFR (Non-Af Amer) 30.8 ml/min 06/05/23 BUN/Creatinine Ratio 21.6 (10-20) H 06/05/23 Glu 98 mg/dl (70-99(Fasting)) 06/05/23 Ca 9.0 mg/dl (8.6-10.3) 06/05/23 Calcium Level 9.0 mg/dl (8.6-10.3) 06/05/23 06:40 Venous Blood pH 7.40 (7.36-7.41) 06/04/23 14:24 Venous Blood Partial Pressure CO2 53 mmHg (38-50) H 06/04/23 14 :24 Venous Blood Partial Pressure O2 28 mmHg 06/04/23 14:24 Venous Blood HCO3 33 mmol/L 06/04/23 14:24 Venous Blood Base Excess 6.3 mEq/L 06/04/23 14:24 Venous Blood Oxygen Saturation < 60.0 % 06/04/23 14:24 Microbiology 06/03/23 13:28 Aerobic Blood Culture - Preliminary Blood No growth in Aerobic bottle after 24 hours. Anaerobic Blood Culture - Preliminary No growth in Anaerobic bottle after 24 hours. 06/03/23 14:26 Aerobic Blood Culture - Preliminary Blood No growth in Aerobic bottle after 24 hours. Anaerobic Blood Culture - Preliminary No growth in Anaerobic bottle after 24 hours. Diagnostic Findings (Past 24 Hours) Echocardiogram from 06/04/2023: EF of greater than 70% with severe LVH with asymmetric septal hypertrophy. Normal right ventricular size and systolic function. Grade 2 diastolic dysfunction. Dynamic left ventricular outflow tract obstruction. Moderate aortic insufficiency. CHEST CTA for PULMONARY ARTERIES 06/03/2023: Independently reviewed CT DOSE: HISTORY: Dyspnea. TECHNIQUE: Multiaxial CT images of the chest were performed following the intravenous administration of contrast to evaluate the pulmonary arteries. 3D/Maximal intensity projection images were also obtained. Sagittal and coronal reformations were also reviewed. A dose lowering technique was utilized adhering to the principles of ALARA. COMPARISON STUDY: Chest CT 07/31/2022. FINDINGS: Normal caliber thoracic aorta. Inadequate contrast within the thoracic aorta to evaluate for an aortic dissection. The heart is moderately enlarged. No pleural or pericardial effusions. Normal esophagus. Limited views of the upper abdomen demonstrate a normal liver and spleen. Mild mediastinal lymphadenopathy which has slightly progressed. No significant hilar lymphadenopathy. No acute fractures identified. There is metallic anchor within the left humeral head. No filling defects within the pulmonary arteries to suggest a pulmonary embolus. There are moderate to severe coronary artery calcifications again noted. No pneumothorax. The central airways are patent. Mild dependent changes seen within the lungs posteriorly. Otherwise, no focal lung consolidations to suggest a pneumonia. There is mild central pulmonary basilar congestion without overt edema. IMPRESSION: 1. No evidence for a pulmonary embolus. 2. Cardiomegaly with mild pulmonary vascular congestion. 3. Mild mediastinal lymphadenopathy which has slightly progressed. I & O Totals 24 Hours 06/04/23 06/05/23 06/06/23 06:59 06:59 06:59 Intake Total 650 / 650 Output Total 2600 / 2600 450 / 450 400 / 400 Balance -2600 / -2600 200 / 200 -400 / -400 Cumulative 06/03/23 12:16 thru 06/05/23 07:10 Intake Total 650 Output Total 3450 Balance -2800 RT Ventilator Mngmt (Last Documented) Ventilator Ordered Settings Respiratory Rate [Resting 16 06/04/23 13:20 Corrective 1] Respiratory Rate [Exercise 18 06/04/23 13:20 Room Air] Respiratory Rate [Resting] 16 06/04/23 13:20 Respiratory Rate 16 06/05/23 07:34 Ventilator - PT Measurements Respiratory Rate [Resting 16 Corrective 1] Respiratory Rate [Exercise 18 Room Air] Respiratory Rate [Resting] 16 Respiratory Rate 16 PG Care Time/CCT Total # of Minutes Spent Total Time Spent with Patient: Total time spent is greater than 50% in coordination of care (as documented) at patient's floor/unit and/or counseling patient: Coding Level of Care Code 29848 INT INP/OBS CARE 3/75MIN Diagnoses SOB (shortness of breath) R06.02 Left ventricular outflow tract obstruction Q24.8 Aortic insufficiency I35.1 Acute diastolic CHF (congestive heart failure) I50.31
[2023-06-05] MEDS: ASPIRIN 81 MG ECTAB PO SCH (08:58)
[2023-06-05] MEDS: ATORVASTATIN 40 MG TAB PO SCH (08:58)
[2023-06-05] MEDS: UMECLIDINIUM/VILANTEROL 62.5/25MCG 7 PUFFS/INHALER INH SCH (08:59)
[2023-06-05 11:21] VITALS: TEMP 97.9; O2SAT 96
--- NOTE | 2023-06-05 13:51 | Discharge Summary ---
Discharge Summary Date of Service June 05, 2023 Admission HPI Per Admitting Provider Dae is an 82-year-old male Who presents with crackles, elevated BNP, mildly bumped troponin, and radiographic evidence of CHF. He is referred for CHF. Benny reports his breathing has been worsening for several years 'older I get worse it gets.' Only remitting factor is just rest. No chest pain or chest pressure. No leg swelling. Just a lot of mucous production, clear. NO fevers, chills, or sweats Breathing is worse in the last 4-7 days than normal. Humidity makes it worse as well He endorses some orthopnea/worsened SoB while laying back No inhalers Previously declined lung specialty referral, now will be following [facility] [employer]. No chest pain, follows with Dr. Sarkar Recently with blurry vision bilaterally which i sunusual. Was doing well after cataract surgery. Medical History: Reviewed Medications: Reviewed Surgical History: Reviewed Family history: Reviewed Allergies: Reviewed Social History: Chew use, no cigarettes. Code Status: Full COde Admission Exam Per Admitting Provider General: A&Ox3. NAD. Cooperative. HEENT: Atraumatic, normocephalic. Vision/hearing grossly intact, very hard of hearing EOMs intact without nystagmus and vision sharp on confrontation, although patient noted some intermittent blurry vision previously. He is pending a right cataract extraction, recently had his left cataract removed which helped improve his vision Pulm: Fine bibasal crackles.Symmetrical chest rise. No increased work of breathing. No respiratory distress. Cardiac: RRR, -mrg. Radial pulses intact and symmetrical. No JVD Abdominal: Nontender, nondistended, soft. BS present. 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 Gonzalez Former chewing tobacco user, no history of smoked tobacco. 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 He is now amenable to this is an actually establishing with [facility] Pulmonology specialist No elevated eosinophils on CBC Patient fortunately not hypoxic, but dyspneic with exertion, suspect due to chronic progressive lung disease No evidence of aortic stenosis on Echo Reported no benefit in the past from [facility] Pulmonology consulted this admission, no additional recommendations, follow up with Dr. Gonzalez Acute on chronic heart failure with preserved ejection fraction: With history of PCI and TRA x2 in 2016 on aspirin Repeat cath 2020 with mild earlymid RCA in-stent restenosis and severe disease and small PDA. Subsequently medically managed BNP elevated at 218 this admission High-sensitivity troponin 43.1->45.8->74.6->75.6->65.9, suspected demand ischemia CXR: Cardiomegaly with evidence of pulmonary vascular congestion and mild volume overload CTA: No evidence of PE. Cardiomegaly with pulmonary vascular congestion, slightly progressive mediastinal lymphadenopathy, no focal consolidations. Central congestion without overt edema EKG: Sinus bradycardia with PACs, right bundle branch block. No territorial signs of ischemia Echo 06/05/2023 with grade 1 diastolic dysfunction, no evidence of , LVEF >70%, Cardiology suspicious of amyloidosis and will continue work up outpatient Reports breathing actually better today Kendal Edmond with CHF clinic recommending PRN Lasix 20mg on discharge, sent with this with instructions to call CHF clinic if feels need to use medication Acute kidney injury on CKD: Baseline creatinine ~1.4, with creatinine 1.99 today in the setting of contrast load for CTA Chest 06/03, and IV diuretics which were received on day of admission Patient is adamant about return home today, reviewed possible risks of discharge and he was understanding of these, was amenable to labwork on Thursday with return to hospital if renal function declining further A-fib not on anticoagulation: Not on anticoagulation due to history of retinal bleeding EKG sinus bradycardia on admission Hypertension: Patient self discontinued lisinopril/amlodipine, BP normotensive Low-salt diet Hyperlipidemia: Continue atorvastatin 40 mg daily History of microscopic polyangiitis: Diagnosed 01/2016. Residual foot drop on the left side. Follows as outpatient. No acute change in management at this time. PT recommending home Leukopenia, thrombocytopenia: Stable. Lyme negative, Anaplasma/Babesia smears negative, DNA pending No indication for transfusion, no clinical signs of bleeding (2) Acute diastolic CHF (congestive heart failure): (3) Microscopic polyangiitis: (4) Thrombocytopenia: (5) Arteriosclerotic coronary artery disease: (6) Afib: (7) Chronic kidney disease, stage 3 (moderate): (8) Acute kidney injury: Updated Medication List Medication Instructions Recorded Confirmed Type aspirin 81 mg tablet,delayed 81 mg PO DAILY #30 tabs 09/12/19 06/05/23 Rx release (Adult Low Dose Aspirin) cyanocobalamin (vitamin B-12) 1,000 mcg PO DAILY #30 caps 04/17/22 06/05/23 Rx 1,000 mcg capsule Incentive Spirometer #1 ea 05/29/22 06/05/23 Rx atorvastatin 40 mg tablet 40 mg PO DAILY #90 tabs 12/23/22 06/05/23 Rx multivitamin 1 tab PO DAILY 03/11/23 06/05/23 History furosemide 20 mg tablet 20 mg PO DAILY PRN weight gain #30 06/05/23 06/05/23 Rx tabs Hospital Stay Data Consultations 06/03/23 14:51 ED Decision to Admit Stat 06/04/23 09:04 [facility] CHF Program Referral Routine 06/04/23 17:26 Consult Pulmonology Routine Diagnostic Imagining Performed 06/03/23 12:43 CT angio chest PE protocol Stat Pending Results Patient Have Any Pending Studies at Discharge: No Discharge Instructions Given to Patient (Per Discharging Provider) You were admitted for trouble breathing. You were found to have some fluid overload on your lungs on admission. You were given Lasix with improvement in your breathing, but some irritation of your kidneys. This had not resolved by the time you were discharged, as you desired to go home. You were discharged with Lasix 20 mg as needed for weight gain. Please call Kendal Edmond's office if you are thinking about taking a Lasix pill, and you should definitely avoid doing so until you do your labwork and make sure your kidneys have recovered on Thursday. This will be sent to Kendal Edmond and your family doctor. Your ultrasound of your heart did not show any abnormalities of the muscle, but did have a little bit of insufficiency of your aortic valve. You should have follow up with Dr. Sarkar about this, though with mild insufficiency surgery is generally not recommended. 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 The lung disease that you have is chronic, and progressive, and so you should have close follow up with Dr. Gonzalez the lung specialist. Your medications were not changed other than the addition of the Lasix as needed for significant weight gain. Please see below for instructions for how to watch your sodium and weight. Foods to avoid/minimize: Cured meats such as ham, catalan, deli meats Canned soups and vegetables TV dinners Total Time Total Time Spent Total Time Spent (In Minutes): 40 min Coding Level of Care Code 47951 INP/OBS DISCH >30 MIN Diagnoses Restrictive lung disease J98.4 Acute diastolic CHF (congestive heart failure) I50.31 Microscopic polyangiitis M31.7 Thrombocytopenia D69.6 Arteriosclerotic coronary artery disease I25.10 Afib I48.91 Chronic kidney disease, stage 3 (moderate) N18.3 Acute kidney injury N17.9
[2023-06-05 14:12] VITALS: BP 105/54; PULSE 67
[2023-06-07 05:33] LABS: Babesia microti DNA Not Detected (Not Detected)
== END 2023-06-05 14:40 | disposition home or self-care (01) | DRG 291 ==
LOC: ED 12:16 → SUATTDRO 15:38 → 2E 15:38